=== PATIENT | male | born 1970 | race African-American/Black ===

== ENCOUNTER 2017-12-31 15:06 | Observation (INO) | payer OTHER ==
[2017-12-31 18:34] LABS: ADD MAN DIFF? NO
[2017-12-31 18:37] LABS: WHITE BLOOD COUNT 5.6 10^3/ul (4.8-10.8)
[2017-12-31 18:37] LABS: ABNORMAL IP MESSAGE 1; BASOPHILS % 0.4 % (0.0-2.0); EOSINOPHILS # 0.2 10^3/ul (0.0-0.5); EOSINOPHILS % 3.4 % (0.0-7.0); HEMATOCRIT 30.8 % (42.0-52.0); HEMOGLOBIN 10.4 g/dl (14.0-18.0); LYMPHOCYTES # 1.2 10^3/ul (0.8-2.9); LYMPHOCYTES % 21.7 % (15.0-51.0); MEAN CORPUSCULAR HEMOGLOBIN 30.3 pg (29.0-33.0); MEAN CORPUSCULAR HGB CONC 33.8 g/dl (32.0-37.0); MEAN CORPUSCULAR VOLUME 89.8 fl (82.0-101.0); MEAN PLATELET VOLUME 11.8 fl (7.4-10.4); MONOCYTE # 0.7 10^3/ul (0.3-0.9); MONOCYTES % 11.8 % (0.0-11.0); NEUTROPHIL # 3.5 10^3/ul (1.6-7.5); NEUTROPHILS % 62.3 % (39.0-77.0); PLATELET COUNT 91 10^3/UL (140-415); POSITIVE DIFF @See below; RED BLOOD COUNT 3.43 10^6/ul (4.70-6.10); RED CELL DISTRIBUTION WIDTH 14.8 % (11.5-14.5)
[2017-12-31 18:57] LABS: INR 1.08; PROTIME 14.1 Sec (11.9-14.9); PT RATIO 1.1
[2017-12-31 18:58] LABS: PARTIAL THROMBOPLASTIN TIME 38.8 Sec (25.0-35.0)
[2017-12-31 19:01] LABS: ALANINE AMINOTRANSFERASE 23 IU/L (13-69); ALBUMIN 4.2 g/dl (3.3-4.9); ALBUMIN/GLOBULIN RATIO 0.95; ALKALINE PHOSPHATASE 101 IU/L (42-121); ANION GAP 25 (8-16); ASPARTATE AMINO TRANSFERASE 14 IU/L (15-46); BLOOD UREA NITROGEN 78 mg/dl (7-20); CALCIUM 8.6 mg/dl (8.4-10.2); CARBON DIOXIDE 23 mmol/L (21-31); CHLORIDE 96 mmol/L (97-110); CREATINE KINASE 76 IU/L (23-200); GLUCOSE 171 mg/dl (70-220); POTASSIUM 4.9 mmol/L (3.5-5.1); SODIUM 139 mmol/L (135-144); TOTAL PROTEIN 8.6 g/dl (6.1-8.1)
[2017-12-31 19:11] LABS: CK INDEX 3.5; TROPONIN-I 0.028 ng/ml (0.00-0.12)
[2017-12-31 19:15] LABS: CK-MB 2.65 ng/ml (0.0-2.4)
[2017-12-31] MEDS ORDERED: ONDANSETRON 4 MG INJ IV (21:00)
[2017-12-31] MEDS ORDERED: ACETAMINOPHEN 325 MG TAB PO (21:00)
[2018-01-01] MEDS: HYDROmorphONE 0.5 MG/0.5 ML SYG IV (00:46)
[2018-01-01] MEDS: ONDANSETRON 4 MG INJ IV (00:46)
[2018-01-01] MEDS: DIPHENHYDRAMINE 50 MG INJ IV (00:47)
[2018-01-01] MEDS ORDERED: ACETAMINOPHEN 325 MG TAB PO (08:00)
[2018-01-01] MEDS ORDERED: morphine LIQ (10 MG/5 ML) CUP PO (08:00)
[2018-01-01] MEDS ORDERED: GLUCOSE GEL 15 GRAM TUBE BUCCAL (08:30)
[2018-01-01] MEDS ORDERED: GLUCAGON 1 MG INJ IM (08:30)
[2018-01-01] MEDS ORDERED: GLUCOSE GEL 15 GRAM TUBE PO ×2 (08:30)
[2018-01-01] MEDS ORDERED: DEXTROSE 50% 50 ML SYRINGE IV ×2 (08:30)
[2018-01-01] MEDS: LISINOPRIL 20 MG TAB PO ×2 (09:00→09:33)
[2018-01-01] MEDS: NIFEdipine (XL) 60 MG TAB PO (09:33)
[2018-01-01] MEDS: MINOXIDIL 2.5 MG TAB PO (09:34)
[2018-01-01] MEDS: PANTOPRAZOLE (EC) 40 MG TAB PO (09:34)
[2018-01-01] MEDS: PENTOXIFYLLINE (SR) 400 MG TAB PO ×2 (09:34→13:02)
[2018-01-01] MEDS: SERTRALINE 50 MG TAB PO (09:34)
[2018-01-01] MEDS: DIPHENHYDRAMINE 25 MG CAP PO (09:34)
[2018-01-01] MEDS: DOCUSATE SODIUM 100 MG CAP PO (09:34)
[2018-01-01] MEDS: METOPROLOL 100 MG TAB PO (11:25)
[2018-01-01] MEDS: CALCIUM ACETATE 667 MG CAP PO (11:57)
[2018-01-01] MEDS: INSULIN ASPART [NOVOLOG] 3 ML PEN SC (12:01)
[2018-01-01] MEDS ORDERED: morphine 2 MG INJ IV (13:00)
[2018-01-01] MEDS ORDERED: LISINOPRIL 20 MG TAB PO (21:00)
== END 2018-01-01 16:35 | disposition left against medical advice (07) ==
LOC: MS3 20:53 → E/R 15:06
DX: T82.868A Thrombosis due to vascular prosthetic devices, implants and grafts, initial encounter (principal); I12.0 Hypertensive chronic kidney disease with stage 5 chronic kidney disease or end stage renal disease; E11.22 Type 2 diabetes mellitus with diabetic chronic kidney disease; N18.6 End stage renal disease; Z99.2 Dependence on renal dialysis; E78.5 Hyperlipidemia, unspecified; I25.10 Atherosclerotic heart disease of native coronary artery without angina pectoris; Z95.5 Presence of coronary angioplasty implant and graft; Z89.512 Acquired absence of left leg below knee; Z89.421 Acquired absence of other right toe(s); Y83.2 Surgical operation with anastomosis, bypass or graft as the cause of abnormal reaction of the patient, or of later complication, without mention of misadventure at the time of the procedure
CPT/HCPCS: 71045; 80053; 82550; 82553; 82962; 84484; 85025; 85610; 85730; 93005; 93931; 96374; 96375; 99285-25

== ENCOUNTER 2018-02-02 23:33 | Inpatient (IN) | payer OTHER ==
[2018-02-03] MEDS ORDERED: ACETAMINOPHEN 325 MG TAB PO (01:00)
[2018-02-03] MEDS ORDERED: GLUCOSE GEL 15 GRAM TUBE BUCCAL (01:15)
[2018-02-03] MEDS ORDERED: DEXTROSE 50% 50 ML SYRINGE IV ×2 (01:15)
[2018-02-03] MEDS ORDERED: GLUCAGON 1 MG INJ IM (01:15)
[2018-02-03] MEDS ORDERED: GLUCOSE GEL 15 GRAM TUBE PO ×2 (01:15)
[2018-02-03] MEDS ORDERED: DIPHENHYDRAMINE 50 MG INJ IM (01:30)
[2018-02-03] MEDS: DIPHENHYDRAMINE 50 MG INJ IV ×3 (02:11→17:19)
[2018-02-03] MEDS: morphine 2 MG INJ IV ×3 (02:12→17:19)
[2018-02-03] MEDS: hydrALAzine 20 MG INJ IV (04:41)
[2018-02-03] MEDS: PANTOPRAZOLE (EC) 40 MG TAB PO (04:41)
[2018-02-03] MEDS: CALCIUM ACETATE 667 MG CAP PO ×3 (08:28→17:01)
[2018-02-03] MEDS: INSULIN ASPART [NOVOLOG] 3 ML PEN SC ×4 (08:36→21:00)
[2018-02-03] MEDS: DOCUSATE SODIUM 100 MG CAP PO ×2 (09:34→21:00)
[2018-02-03] MEDS: METOPROLOL 100 MG TAB PO ×2 (09:35→21:00)
[2018-02-03] MEDS: PENTOXIFYLLINE (SR) 400 MG TAB PO ×3 (09:35→21:00)
[2018-02-03] MEDS: SERTRALINE 50 MG TAB PO (09:36)
[2018-02-03] MEDS: LISINOPRIL 20 MG TAB PO (10:39)
[2018-02-03] MEDS: MINOXIDIL 2.5 MG TAB PO (10:39)
[2018-02-03] MEDS: NIFEdipine (XL) 60 MG TAB PO ×2 (10:40→21:00)
[2018-02-03 11:33] LABS: ADD MAN DIFF? NO
[2018-02-03 11:36] LABS: BASOPHILS % 0.4 % (0.0-2.0); EOSINOPHILS # 0.2 10^3/ul (0.0-0.5); EOSINOPHILS % 2.1 % (0.0-7.0); HEMATOCRIT 25.5 % (42.0-52.0); HEMOGLOBIN 8.4 g/dl (14.0-18.0); LYMPHOCYTES # 1.1 10^3/ul (0.8-2.9); LYMPHOCYTES % 11.4 % (15.0-51.0); MEAN CORPUSCULAR HEMOGLOBIN 29.2 pg (29.0-33.0); MEAN CORPUSCULAR HGB CONC 32.9 g/dl (32.0-37.0); MEAN CORPUSCULAR VOLUME 88.5 fl (82.0-101.0); MEAN PLATELET VOLUME 11.1 fl (7.4-10.4); MONOCYTE # 0.8 10^3/ul (0.3-0.9); MONOCYTES % 8.2 % (0.0-11.0); NEUTROPHIL # 7.2 10^3/ul (1.6-7.5); NEUTROPHILS % 76.4 % (39.0-77.0); PLATELET COUNT 119 10^3/UL (140-415); RED BLOOD COUNT 2.88 10^6/ul (4.70-6.10)
[2018-02-03 11:36] LABS: WHITE BLOOD COUNT 9.4 10^3/ul (4.8-10.8)
[2018-02-03 11:57] LABS: ALANINE AMINOTRANSFERASE 21 IU/L (13-69); ALBUMIN 3.5 g/dl (3.3-4.9); ALBUMIN/GLOBULIN RATIO 0.74; ALKALINE PHOSPHATASE 276 IU/L (42-121); ANION GAP 18 (8-16); ASPARTATE AMINO TRANSFERASE 23 IU/L (15-46); BLOOD UREA NITROGEN 54 mg/dl (7-20); CALCIUM 9.8 mg/dl (8.4-10.2); CARBON DIOXIDE 27 mmol/L (21-31); CHLORIDE 98 mmol/L (97-110); CREATININE 8.86 mg/dl (0.61-1.24); GLUCOSE 153 mg/dl (70-220); POTASSIUM 4.4 mmol/L (3.5-5.1); SODIUM 139 mmol/L (135-144); TOTAL PROTEIN 8.2 g/dl (6.1-8.1)
[2018-02-03 11:59] LABS: LACTIC ACID 0.6 mmol/L (0.5-2.0)
[2018-02-03] MEDS ORDERED: LORAZEPAM 2 MG INJ IV (14:30)
[2018-02-03] MEDS: PIPER-TAZO 2.25 GM (PMX) 50 ML IVPB (21:02)
[2018-02-04] MEDS: HEPARIN 1000 UNITS/ML 10 ML INJ CATHETER (02:06)
[2018-02-04] MEDS: DIPHENHYDRAMINE 50 MG INJ IV ×4 (02:16→23:13)
[2018-02-04] MEDS: morphine 2 MG INJ IV ×4 (02:17→23:13)
[2018-02-04 04:33] LABS: HEPATITIS B SURFACE ANTIGEN NEGATIVE (NEGATIVE)
[2018-02-04] MEDS: INSULIN ASPART [NOVOLOG] 3 ML PEN SC ×4 (07:55→21:00)
[2018-02-04] MEDS: MINOXIDIL 2.5 MG TAB PO (07:58)
[2018-02-04] MEDS: DOCUSATE SODIUM 100 MG CAP PO ×2 (07:58→21:21)
[2018-02-04] MEDS: LISINOPRIL 20 MG TAB PO (07:58)
[2018-02-04] MEDS: NIFEdipine (XL) 60 MG TAB PO ×2 (07:59→21:21)
[2018-02-04] MEDS: PANTOPRAZOLE (EC) 40 MG TAB PO (07:59)
[2018-02-04] MEDS: METOPROLOL 100 MG TAB PO ×2 (08:00→21:00)
[2018-02-04] MEDS: PENTOXIFYLLINE (SR) 400 MG TAB PO ×3 (08:00→21:21)
[2018-02-04] MEDS: SERTRALINE 50 MG TAB PO (08:00)
[2018-02-04] MEDS: PIPER-TAZO 2.25 GM (PMX) 50 ML IVPB ×2 (08:01→21:23)
[2018-02-04] MEDS: CALCIUM ACETATE 667 MG CAP PO ×3 (08:01→18:20)
[2018-02-04 10:52] LABS: HEPATITIS B SURFACE ANTIBODY NEGATIVE (NEGATIVE)
[2018-02-04 10:59] LABS: ADD MAN DIFF? NO
[2018-02-04 11:04] LABS: WHITE BLOOD COUNT 7.3 10^3/ul (4.8-10.8)
[2018-02-04 11:04] LABS: BASOPHILS % 0.4 % (0.0-2.0); EOSINOPHILS # 0.2 10^3/ul (0.0-0.5); EOSINOPHILS % 2.1 % (0.0-7.0); HEMATOCRIT 26.2 % (42.0-52.0); HEMOGLOBIN 8.5 g/dl (14.0-18.0); LYMPHOCYTES % 14.1 % (15.0-51.0); MEAN CORPUSCULAR HGB CONC 32.4 g/dl (32.0-37.0); MEAN CORPUSCULAR VOLUME 89.4 fl (82.0-101.0); MONOCYTE # 0.5 10^3/ul (0.3-0.9); MONOCYTES % 6.3 % (0.0-11.0); NEUTROPHIL # 5.5 10^3/ul (1.6-7.5); NEUTROPHILS % 74.9 % (39.0-77.0); PLATELET COUNT 134 10^3/UL (140-415); RED BLOOD COUNT 2.93 10^6/ul (4.70-6.10); RED CELL DISTRIBUTION WIDTH 12.7 % (11.5-14.5)
[2018-02-04 11:31] LABS: ANION GAP 21 (8-16); BLOOD UREA NITROGEN 32 mg/dl (7-20); CALCIUM 9.2 mg/dl (8.4-10.2); CARBON DIOXIDE 24 mmol/L (21-31); CHLORIDE 101 mmol/L (97-110); CREATININE 6.02 mg/dl (0.61-1.24); GLUCOSE 87 mg/dl (70-220); POTASSIUM 4.5 mmol/L (3.5-5.1); SODIUM 141 mmol/L (135-144)
[2018-02-04 11:35] LABS: HEMOGLOBIN A1C 7.5 % (0-5.9)
[2018-02-04] MEDS: hydrALAzine 20 MG INJ IV (12:12)
[2018-02-04] MEDS ORDERED: morphine LIQ (10 MG/5 ML) CUP PO (13:30)
[2018-02-04] MEDS: LORAZEPAM 2 MG INJ IV (16:57)
[2018-02-05] MEDS: INSULIN ASPART [NOVOLOG] 3 ML PEN SC ×4 (07:55→21:00)
[2018-02-05] MEDS ORDERED: MIDAZOLAM 1 MG/ML 2 ML INJ (08:32)
[2018-02-05] MEDS ORDERED: FENTAnyl 50 MCG/ML VIAL (08:32)
[2018-02-05] MEDS ORDERED: LIDOCAINE 1% (MDV) 20 ML INJ (08:37)
[2018-02-05] MEDS ORDERED: HEPARIN 1000 UNITS/NS (A-LINE) 1,000 ML (08:37)
[2018-02-05] MEDS ORDERED: IODIXANOL LOCM 100 ML BTL (08:37)
[2018-02-05] MEDS ORDERED: IODIXANOL LOCM 50 ML BTL (09:10)
[2018-02-05] MEDS: PANTOPRAZOLE (EC) 40 MG TAB PO (09:59)
[2018-02-05] MEDS: CALCIUM ACETATE 667 MG CAP PO ×3 (09:59→17:32)
[2018-02-05] MEDS: PIPER-TAZO 2.25 GM (PMX) 50 ML IVPB ×2 (09:59→21:08)
[2018-02-05] MEDS: PENTOXIFYLLINE (SR) 400 MG TAB PO ×3 (10:00→21:10)
[2018-02-05] MEDS: NIFEdipine (XL) 60 MG TAB PO ×2 (10:03→21:09)
[2018-02-05] MEDS: DOCUSATE SODIUM 100 MG CAP PO ×2 (10:03→21:09)
[2018-02-05] MEDS: LISINOPRIL 20 MG TAB PO (10:04)
[2018-02-05] MEDS: METOPROLOL 100 MG TAB PO ×2 (10:04→21:09)
[2018-02-05] MEDS: MINOXIDIL 2.5 MG TAB PO (10:05)
[2018-02-05] MEDS: SERTRALINE 50 MG TAB PO (10:12)
[2018-02-05] MEDS: morphine 2 MG INJ IV ×2 (11:02→21:16)
[2018-02-05] MEDS: DIPHENHYDRAMINE 50 MG INJ IV ×2 (11:03→21:16)
[2018-02-05] MEDS ORDERED: VANCOMYCIN IV PER PHARMACY XX (12:30)
[2018-02-05] MEDS: VANCOMYCIN 1.5 GM in SOD CHLORIDE 0.9% 250 ML IVPB (14:02)
[2018-02-05] MEDS: ONDANSETRON 4 MG INJ IV (17:41)
[2018-02-05 19:40] LABS: CREATINE KINASE < 20 IU/L (23-200)
[2018-02-05 19:45] LABS: TROPONIN-I 0.024 ng/ml (0.000-0.120)
[2018-02-05 19:46] LABS: CK-MB 1.91 ng/ml (0.0-2.4)
[2018-02-06] MEDS: INSULIN ASPART [NOVOLOG] 3 ML PEN SC ×4 (07:55→20:43)
[2018-02-06] MEDS: CALCIUM ACETATE 667 MG CAP PO ×3 (08:02→17:18)
[2018-02-06] MEDS: PANTOPRAZOLE (EC) 40 MG TAB PO (08:02)
[2018-02-06] MEDS: ONDANSETRON 4 MG INJ IV ×2 (08:07→18:03)
[2018-02-06 08:15] LABS: ADD MAN DIFF? NO
[2018-02-06 08:26] LABS: ABNORMAL IP MESSAGE 1; BASOPHILS % 0.6 % (0.0-2.0); EOSINOPHILS # 0.1 10^3/ul (0.0-0.5); HEMOGLOBIN 9.3 g/dl (14.0-18.0); LYMPHOCYTES % 14.9 % (15.0-51.0); MEAN CORPUSCULAR HEMOGLOBIN 28.6 pg (29.0-33.0); MEAN CORPUSCULAR HGB CONC 32.1 g/dl (32.0-37.0); MEAN CORPUSCULAR VOLUME 89.2 fl (82.0-101.0); MONOCYTE # 0.3 10^3/ul (0.3-0.9); MONOCYTES % 4.8 % (0.0-11.0); NEUTROPHIL # 4.9 10^3/ul (1.6-7.5); NEUTROPHILS % 71.3 % (39.0-77.0); PLATELET COUNT 156 10^3/UL (140-415); POSITIVE DIFF @See below; RED BLOOD COUNT 3.25 10^6/ul (4.70-6.10); RED CELL DISTRIBUTION WIDTH 12.7 % (11.5-14.5)
[2018-02-06 08:26] LABS: WHITE BLOOD COUNT 6.9 10^3/ul (4.8-10.8)
[2018-02-06 08:50] LABS: PHOSPHORUS 5.6 mg/dl (2.5-4.9)
[2018-02-06 08:50] LABS: MAGNESIUM 2.6 mg/dl (1.7-2.5)
[2018-02-06 08:51] LABS: CREATINE KINASE < 20 IU/L (23-200)
[2018-02-06] MEDS: METOPROLOL 100 MG TAB PO ×2 (09:00→21:00)
[2018-02-06] MEDS: LISINOPRIL 20 MG TAB PO (09:00)
[2018-02-06 09:01] LABS: TROPONIN-I 0.019 ng/ml (0.000-0.120)
[2018-02-06 09:03] LABS: CK-MB 2.09 ng/ml (0.0-2.4)
[2018-02-06 09:09] LABS: ANION GAP 32 (8-16); BLOOD UREA NITROGEN 57 mg/dl (7-20); CALCIUM 9.1 mg/dl (8.4-10.2); CARBON DIOXIDE 16 mmol/L (21-31); CHLORIDE 101 mmol/L (97-110); CREATININE 9.79 mg/dl (0.61-1.24); GLUCOSE 106 mg/dl (70-220); POTASSIUM 5.2 mmol/L (3.5-5.1); SODIUM 144 mmol/L (135-144)
[2018-02-06] MEDS: PIPER-TAZO 2.25 GM (PMX) 50 ML IVPB ×2 (09:20→20:42)
[2018-02-06] MEDS: PENTOXIFYLLINE (SR) 400 MG TAB PO ×3 (09:21→21:00)
[2018-02-06] MEDS: SERTRALINE 50 MG TAB PO (09:21)
[2018-02-06] MEDS: ASPIRIN 81 MG TAB PO (09:22)
[2018-02-06] MEDS: DOCUSATE SODIUM 100 MG CAP PO ×2 (09:23→20:43)
[2018-02-06] MEDS: MINOXIDIL 2.5 MG TAB PO (09:25)
[2018-02-06] MEDS: NIFEdipine (XL) 60 MG TAB PO ×2 (09:25→20:44)
[2018-02-06 09:28] LABS: CHOL/HDL RATIO 4.7 RATIO; HDL CHOLESTEROL 29 mg/dl (27-67); LDL CHOLESTEROL,CALCULATED 65 mg/dl; TRIGLYCERIDES 218 mg/dl (0-149)
[2018-02-06 09:28] LABS: CHOLESTEROL 138 mg/dl (100-200)
[2018-02-06] MEDS ORDERED: ALBUMIN HUMAN 25% 50 ML IV (12:30)
[2018-02-06] MEDS ORDERED: SODIUM CHLORIDE 0.9% 1L BAG IV (12:30)
[2018-02-06] MEDS ORDERED: HEPARIN 1000 UNITS/ML 10 ML INJ CATHETER (12:30)
[2018-02-06] MEDS: LUBIPROSTONE 24 MCG CAP PO ×2 (16:03→20:43)
[2018-02-06] MEDS: morphine 2 MG INJ IV (18:05)
[2018-02-06] MEDS: DIPHENHYDRAMINE 50 MG INJ IV (18:05)
[2018-02-06] MEDS: DEXTROSE 5%-0.45% NACL 1,000 ML IV (18:09)
[2018-02-07] MEDS ORDERED: PANTOPRAZOLE 40 MG INJ IV (06:00)
[2018-02-07] MEDS: PANTOPRAZOLE 40 MG INJ IV (07:35)
[2018-02-07] MEDS: CALCIUM ACETATE 667 MG CAP PO ×4 (07:35→17:21)
[2018-02-07] MEDS: INSULIN ASPART [NOVOLOG] 3 ML PEN SC ×4 (07:55→20:34)
[2018-02-07] MEDS: morphine 2 MG INJ IV ×3 (08:27→20:29)
[2018-02-07] MEDS: DIPHENHYDRAMINE 50 MG INJ IV ×3 (08:27→20:28)
[2018-02-07] MEDS: LISINOPRIL 20 MG TAB PO (08:29)
[2018-02-07] MEDS: LUBIPROSTONE 24 MCG CAP PO ×2 (08:29→20:28)
[2018-02-07] MEDS: METOPROLOL 100 MG TAB PO ×2 (08:29→20:28)
[2018-02-07] MEDS: PIPER-TAZO 2.25 GM (PMX) 50 ML IVPB ×2 (08:30→20:29)
[2018-02-07] MEDS: MINOXIDIL 2.5 MG TAB PO (08:30)
[2018-02-07] MEDS: DOCUSATE SODIUM 100 MG CAP PO ×2 (08:30→20:27)
[2018-02-07] MEDS: PENTOXIFYLLINE (SR) 400 MG TAB PO ×4 (08:30→20:28)
[2018-02-07] MEDS: SERTRALINE 50 MG TAB PO (08:30)
[2018-02-07] MEDS: NIFEdipine (XL) 60 MG TAB PO ×2 (08:30→20:28)
[2018-02-07 09:40] LABS: ADD MAN DIFF? NO
[2018-02-07 09:42] LABS: BASOPHILS % 0.5 % (0.0-2.0); EOSINOPHILS # 0.2 10^3/ul (0.0-0.5); EOSINOPHILS % 1.9 % (0.0-7.0); HEMATOCRIT 28.1 % (42.0-52.0); HEMOGLOBIN 9.4 g/dl (14.0-18.0); LYMPHOCYTES # 0.8 10^3/ul (0.8-2.9); MEAN CORPUSCULAR HEMOGLOBIN 29.1 pg (29.0-33.0); MEAN CORPUSCULAR HGB CONC 33.5 g/dl (32.0-37.0); MEAN PLATELET VOLUME 10.6 fl (7.4-10.4); MONOCYTE # 0.4 10^3/ul (0.3-0.9); MONOCYTES % 4.9 % (0.0-11.0); NEUTROPHIL # 6.1 10^3/ul (1.6-7.5); NEUTROPHILS % 77.7 % (39.0-77.0); PLATELET COUNT 149 10^3/UL (140-415); RED BLOOD COUNT 3.23 10^6/ul (4.70-6.10); RED CELL DISTRIBUTION WIDTH 12.7 % (11.5-14.5)
[2018-02-07 09:42] LABS: WHITE BLOOD COUNT 7.8 10^3/ul (4.8-10.8)
[2018-02-07 09:45] LABS: OCCULT BLOOD STOOL NEGATIVE (NEGATIVE)
[2018-02-07 10:07] LABS: ALANINE AMINOTRANSFERASE 16 IU/L (13-69); ALKALINE PHOSPHATASE 426 IU/L (42-121); ANION GAP 26 (8-16); ASPARTATE AMINO TRANSFERASE 21 IU/L (15-46); BLOOD UREA NITROGEN 32 mg/dl (7-20); CALCIUM 8.7 mg/dl (8.4-10.2); CARBON DIOXIDE 27 mmol/L (21-31); CHLORIDE 98 mmol/L (97-110); CREATININE 6.46 mg/dl (0.61-1.24); GLUCOSE 112 mg/dl (70-220); POTASSIUM 4.1 mmol/L (3.5-5.1); SODIUM 147 mmol/L (135-144)
[2018-02-07 10:10] LABS: PHOSPHORUS 3.6 mg/dl (2.5-4.9)
[2018-02-07 10:10] LABS: MAGNESIUM 2.4 mg/dl (1.7-2.5)
[2018-02-07 10:12] LABS: VANCOMYCIN,RANDOM 18.9 ug/ml
[2018-02-07 12:05] LABS: PROTIME 14.4 Sec (11.9-14.9); PT RATIO 1.1
[2018-02-07] MEDS ORDERED: PENDING SANTYL ORDER FOR WOUND CARE XX (13:30)
[2018-02-07] MEDS ORDERED: SODIUM CHLORIDE 0.9% 1L BAG IV (14:00)
[2018-02-07] MEDS: DEXTROSE 5%-0.45% NACL 1,000 ML IV (14:00)
[2018-02-07] MEDS ORDERED: ALBUMIN HUMAN 25% 50 ML IV (14:00)
[2018-02-07] MEDS: VANCOMYCIN 1 GM 250 ML IVPB (21:53)
[2018-02-08] MEDS: DIPHENHYDRAMINE 50 MG INJ IV ×4 (02:32→22:13)
[2018-02-08] MEDS: morphine 2 MG INJ IV ×2 (02:33→22:14)
[2018-02-08] MEDS: PANTOPRAZOLE 40 MG INJ IV (06:38)
[2018-02-08] MEDS ORDERED: LIDOCAINE 2% (SDV) 5 ML INJ (06:43)
[2018-02-08] MEDS ORDERED: PROPOFOL 20 ML (06:43)
[2018-02-08] MEDS ORDERED: GLYCOPYRROLATE 0.4 MG INJ (06:43)
[2018-02-08] MEDS ORDERED: ROCURONIUM 50 MG INJ (06:43)
[2018-02-08] MEDS ORDERED: MIDAZOLAM 1 MG/ML 2 ML INJ (06:44)
[2018-02-08] MEDS ORDERED: FENTAnyl 50 MCG/ML VIAL (06:44)
[2018-02-08] MEDS ORDERED: DEXAMETHASONE 4 MG/ML 1 ML INJ ×2 (06:44→06:49)
[2018-02-08] MEDS ORDERED: NEOSTIGMINE 3 MG/3 ML SYRINGE (06:44)
[2018-02-08] MEDS ORDERED: ONDANSETRON 4 MG INJ (06:45)
[2018-02-08] MEDS ORDERED: SUCCINYLCHOLINE CHLORIDE 100 MG/5 ML SYG IV (06:53)
[2018-02-08] MEDS ORDERED: CEFAZOLIN 1 GM INJ (06:54)
[2018-02-08] MEDS ORDERED: HYDROmorphONE (0.2 MG/ML) 10ML SYG IV ×3 (07:00)
[2018-02-08] MEDS ORDERED: ATROPINE 1 MG/10 ML SYRINGE IV (07:00)
[2018-02-08] MEDS ORDERED: FENTAnyl 50 MCG/ML VIAL IV (07:00)
[2018-02-08] MEDS ORDERED: EPHEDrine SULFATE 50 MG/5 ML SYG IV (07:00)
[2018-02-08] MEDS ORDERED: hydrALAzine 20 MG INJ IV (07:00)
[2018-02-08] MEDS ORDERED: MIDAZOLAM 1 MG/ML 2 ML INJ IV (07:00)
[2018-02-08] MEDS ORDERED: OXYCODONE/ACETAMINOPHEN (5/325) TAB PO ×2 (07:00)
[2018-02-08] MEDS ORDERED: ONDANSETRON 4 MG INJ IV (07:00)
[2018-02-08] MEDS ORDERED: morphine (1 MG/ML) 10ML SYRINGE IV ×3 (07:00)
[2018-02-08] MEDS ORDERED: MEPERIDINE 25 MG INJ IV (07:00)
[2018-02-08] MEDS ORDERED: LABETALOL HCL 20MG INJ IV (07:00)
[2018-02-08] MEDS: INSULIN ASPART [NOVOLOG] 3 ML PEN SC ×4 (07:55→22:14)
[2018-02-08] MEDS: CALCIUM ACETATE 667 MG CAP PO ×3 (07:55→18:37)
[2018-02-08] MEDS: LUBIPROSTONE 24 MCG CAP PO ×2 (07:57→21:00)
[2018-02-08] MEDS: NIFEdipine (XL) 60 MG TAB PO ×2 (08:02→22:13)
[2018-02-08] MEDS: METOPROLOL 100 MG TAB PO ×2 (08:02→22:13)
[2018-02-08] MEDS: DOCUSATE SODIUM 100 MG CAP PO ×2 (08:02→22:12)
[2018-02-08] MEDS: MINOXIDIL 2.5 MG TAB PO (08:02)
[2018-02-08] MEDS: SERTRALINE 50 MG TAB PO (08:03)
[2018-02-08] MEDS: LISINOPRIL 20 MG TAB PO (08:03)
[2018-02-08] MEDS: PENTOXIFYLLINE (SR) 400 MG TAB PO ×3 (08:03→22:13)
[2018-02-08] MEDS: BACITRACIN 50000 UNITS INJ IRR (08:13)
[2018-02-08] MEDS: POLYMYXIN/BACITRACIN 1L IRRIG (08:13)
[2018-02-08] MEDS: COLLAGENASE 5 GM (UD JAR) TOP (09:00)
[2018-02-08] MEDS: FENTAnyl 50 MCG/ML VIAL IV ×3 (09:11→10:51)
[2018-02-08] MEDS: PIPER-TAZO 2.25 GM (PMX) 50 ML IVPB (09:33)
[2018-02-08] MEDS: MIDAZOLAM 1 MG/ML 2 ML INJ (10:51)
[2018-02-08] MEDS: DEXTROSE 5%-0.45% NACL 1,000 ML IV (11:48)
[2018-02-08] MEDS: LIDOCAINE 1% (MDV) 10 ML INJ INJ (18:29)
[2018-02-09] MEDS: morphine 2 MG INJ IV ×4 (01:51→17:52)
[2018-02-09] MEDS: DIPHENHYDRAMINE 50 MG INJ IV ×3 (06:10→18:11)
[2018-02-09] MEDS: PANTOPRAZOLE 40 MG INJ IV (06:10)
[2018-02-09] MEDS: CALCIUM ACETATE 667 MG CAP PO ×5 (07:55→17:52)
[2018-02-09] MEDS: MINOXIDIL 2.5 MG TAB PO (09:00)
[2018-02-09 09:38] LABS: ADD MAN DIFF? NO
[2018-02-09] MEDS: NIFEdipine (XL) 60 MG TAB PO ×2 (09:40→20:21)
[2018-02-09] MEDS: METOPROLOL 100 MG TAB PO ×2 (09:40→20:21)
[2018-02-09] MEDS: DOCUSATE SODIUM 100 MG CAP PO ×2 (09:40→20:20)
[2018-02-09] MEDS: LISINOPRIL 20 MG TAB PO (09:41)
[2018-02-09] MEDS: COLLAGENASE 5 GM (UD JAR) TOP (09:41)
[2018-02-09] MEDS: PENTOXIFYLLINE (SR) 400 MG TAB PO ×3 (09:41→20:20)
[2018-02-09] MEDS: LUBIPROSTONE 24 MCG CAP PO ×2 (09:41→20:20)
[2018-02-09] MEDS: SERTRALINE 50 MG TAB PO (09:43)
[2018-02-09 09:52] LABS: WHITE BLOOD COUNT 5.7 10^3/ul (4.8-10.8)
[2018-02-09 09:52] LABS: BASOPHILS % 0.3 % (0.0-2.0); EOSINOPHILS # 0.1 10^3/ul (0.0-0.5); EOSINOPHILS % 1.2 % (0.0-7.0); HEMATOCRIT 21.7 % (42.0-52.0); HEMOGLOBIN 7.2 g/dl (14.0-18.0); LYMPHOCYTES # 1.1 10^3/ul (0.8-2.9); LYMPHOCYTES % 19.8 % (15.0-51.0); MEAN CORPUSCULAR HEMOGLOBIN 28.8 pg (29.0-33.0); MEAN CORPUSCULAR HGB CONC 33.2 g/dl (32.0-37.0); MEAN CORPUSCULAR VOLUME 86.8 fl (82.0-101.0); MEAN PLATELET VOLUME 10.4 fl (7.4-10.4); MONOCYTE # 0.5 10^3/ul (0.3-0.9); NEUTROPHIL # 3.9 10^3/ul (1.6-7.5); NEUTROPHILS % 68.1 % (39.0-77.0); PLATELET COUNT 125 10^3/UL (140-415); RED CELL DISTRIBUTION WIDTH 12.7 % (11.5-14.5)
[2018-02-09] MEDS: INSULIN ASPART [NOVOLOG] 3 ML PEN SC ×4 (09:54→20:24)
[2018-02-09 11:18] LABS: ALANINE AMINOTRANSFERASE 8 IU/L (13-69); ALBUMIN 3.5 g/dl (3.3-4.9); ALBUMIN/GLOBULIN RATIO 0.74; ALKALINE PHOSPHATASE 266 IU/L (42-121); ANION GAP 16 (8-16); ASPARTATE AMINO TRANSFERASE 16 IU/L (15-46); BLOOD UREA NITROGEN 28 mg/dl (7-20); CALCIUM 8.2 mg/dl (8.4-10.2); CARBON DIOXIDE 27 mmol/L (21-31); CHLORIDE 104 mmol/L (97-110); CREATININE 6.34 mg/dl (0.61-1.24); GLUCOSE 155 mg/dl (70-220); POTASSIUM 3.8 mmol/L (3.5-5.1); SODIUM 143 mmol/L (135-144); TOTAL PROTEIN 8.2 g/dl (6.1-8.1)
[2018-02-09 11:27] LABS: PHOSPHORUS 3.4 mg/dl (2.5-4.9)
[2018-02-09 11:27] LABS: MAGNESIUM 2.1 mg/dl (1.7-2.5)
[2018-02-09] MEDS: AMLODIPINE 10 MG TAB PO ×2 (13:00→17:52)
[2018-02-09] MEDS: LINAGLIPTIN 5 MG TABLET PO ×2 (13:00→17:52)
[2018-02-09 16:08] LABS: HEMOGLOBIN 6.9 g/dl (14.0-18.0)
[2018-02-09] MEDS ORDERED: ALBUMIN HUMAN 25% 50 ML IV (17:00)
[2018-02-09] MEDS ORDERED: SODIUM CHLORIDE 0.9% 1L BAG IV (17:00)
[2018-02-09] MEDS: SOD FERRIC GLUC COMPLX 125 MG in SOD CHLORIDE 0.9% 100 ML IVPB (17:49)
[2018-02-10] MEDS: morphine 2 MG INJ IV ×5 (02:37→22:19)
[2018-02-10] MEDS: DIPHENHYDRAMINE 50 MG INJ IV ×4 (02:37→22:20)
[2018-02-10] MEDS: PANTOPRAZOLE 40 MG INJ IV (06:43)
[2018-02-10] MEDS: INSULIN ASPART [NOVOLOG] 3 ML PEN SC ×4 (07:55→20:54)
[2018-02-10] MEDS: METOPROLOL 100 MG TAB PO ×2 (08:25→20:53)
[2018-02-10] MEDS: DOCUSATE SODIUM 100 MG CAP PO ×3 (08:25→21:00)
[2018-02-10] MEDS: LUBIPROSTONE 24 MCG CAP PO ×3 (08:25→21:00)
[2018-02-10] MEDS: LISINOPRIL 20 MG TAB PO (08:26)
[2018-02-10] MEDS: CALCIUM ACETATE 667 MG CAP PO ×3 (08:26→17:58)
[2018-02-10] MEDS: LINAGLIPTIN 5 MG TABLET PO (08:27)
[2018-02-10] MEDS: AMLODIPINE 10 MG TAB PO (08:27)
[2018-02-10] MEDS: PENTOXIFYLLINE (SR) 400 MG TAB PO ×3 (08:27→20:53)
[2018-02-10] MEDS: SERTRALINE 50 MG TAB PO (08:27)
[2018-02-10] MEDS: NIFEdipine (XL) 60 MG TAB PO ×2 (08:27→20:53)
[2018-02-10 08:59] LABS: ADD MAN DIFF? NO
[2018-02-10 09:11] LABS: ABNORMAL IP MESSAGE 1; BASOPHILS % 0.4 % (0.0-2.0); EOSINOPHILS # 0.1 10^3/ul (0.0-0.5); EOSINOPHILS % 1.9 % (0.0-7.0); HEMATOCRIT 21.5 % (42.0-52.0); LYMPHOCYTES % 17.8 % (15.0-51.0); MEAN CORPUSCULAR HEMOGLOBIN 28.4 pg (29.0-33.0); MEAN CORPUSCULAR HGB CONC 32.1 g/dl (32.0-37.0); MEAN CORPUSCULAR VOLUME 88.5 fl (82.0-101.0); MEAN PLATELET VOLUME 10.1 fl (7.4-10.4); MONOCYTE # 0.4 10^3/ul (0.3-0.9); MONOCYTES % 6.2 % (0.0-11.0); NEUTROPHILS % 70.5 % (39.0-77.0); PLATELET COUNT 123 10^3/UL (140-415); POSITIVE DIFF @See below; RED BLOOD COUNT 2.43 10^6/ul (4.70-6.10); RED CELL DISTRIBUTION WIDTH 12.7 % (11.5-14.5)
[2018-02-10 09:11] LABS: WHITE BLOOD COUNT 5.7 10^3/ul (4.8-10.8)
[2018-02-10 09:26] LABS: ANION GAP 16 (8-16); BLOOD UREA NITROGEN 33 mg/dl (7-20); CALCIUM 8.7 mg/dl (8.4-10.2); CARBON DIOXIDE 29 mmol/L (21-31); CHLORIDE 102 mmol/L (97-110); CREATININE 8.44 mg/dl (0.61-1.24); GLUCOSE 102 mg/dl (70-220); HEMOGLOBIN 6.9 g/dl (14.0-18.0); POTASSIUM 3.9 mmol/L (3.5-5.1); SODIUM 143 mmol/L (135-144)
[2018-02-10] MEDS: MINOXIDIL 2.5 MG TAB PO (09:39)
[2018-02-10] MEDS: INSULIN GLARGINE [LANtus] 3 ML PEN SC (09:43)
[2018-02-10] MEDS: hydrALAzine 20 MG INJ IV ×2 (09:47→16:51)
[2018-02-10] MEDS: COLLAGENASE 5 GM (UD JAR) TOP (09:48)
[2018-02-10] MEDS: SOD FERRIC GLUC COMPLX 125 MG in SOD CHLORIDE 0.9% 100 ML IVPB (16:41)
[2018-02-10 19:22] LABS: OCCULT BLOOD STOOL NEGATIVE (NEGATIVE)
[2018-02-11] MEDS ORDERED: NITROGLYCERIN (SL) 0.4 MG TAB (04:26)
[2018-02-11] MEDS: NITROGLYCERIN (SL) 0.4 MG TAB SL (04:27)
[2018-02-11 05:33] LABS: ADD MAN DIFF? NO
[2018-02-11] MEDS: PANTOPRAZOLE 40 MG INJ IV (05:41)
[2018-02-11 05:47] LABS: WHITE BLOOD COUNT 7.1 10^3/ul (4.8-10.8)
[2018-02-11 05:47] LABS: ABNORMAL IP MESSAGE 1; BASOPHILS % 0.3 % (0.0-2.0); EOSINOPHILS # 0.1 10^3/ul (0.0-0.5); EOSINOPHILS % 1.4 % (0.0-7.0); LYMPHOCYTES # 0.6 10^3/ul (0.8-2.9); LYMPHOCYTES % 8.8 % (15.0-51.0); MEAN CORPUSCULAR HEMOGLOBIN 28.4 pg (29.0-33.0); MEAN CORPUSCULAR HGB CONC 32.6 g/dl (32.0-37.0); MEAN CORPUSCULAR VOLUME 87.2 fl (82.0-101.0); MEAN PLATELET VOLUME 10.9 fl (7.4-10.4); MONOCYTE # 0.3 10^3/ul (0.3-0.9); MONOCYTES % 4.5 % (0.0-11.0); NEUTROPHIL # 5.9 10^3/ul (1.6-7.5); NEUTROPHILS % 83.3 % (39.0-77.0); PLATELET COUNT 132 10^3/UL (140-415); POSITIVE DIFF @See below; RED BLOOD COUNT 2.18 10^6/ul (4.70-6.10); RED CELL DISTRIBUTION WIDTH 12.5 % (11.5-14.5)
[2018-02-11] MEDS: morphine 2 MG INJ IV ×3 (06:14→23:05)
[2018-02-11] MEDS: DIPHENHYDRAMINE 50 MG INJ IV ×3 (06:14→23:04)
[2018-02-11 06:17] LABS: CREATINE KINASE 23 IU/L (23-200)
[2018-02-11 06:28] LABS: HEMOGLOBIN 6.2 g/dl (14.0-18.0)
[2018-02-11 06:30] LABS: CK INDEX 5.6; TROPONIN-I 0.038 ng/ml (0.000-0.120)
[2018-02-11 06:36] LABS: CK-MB 1.28 ng/ml (0.0-2.4)
[2018-02-11] MEDS: INSULIN ASPART [NOVOLOG] 3 ML PEN SC ×4 (07:55→21:00)
[2018-02-11] MEDS: INSULIN GLARGINE [LANtus] 3 ML PEN SC (08:00)
[2018-02-11] MEDS: COLLAGENASE 5 GM (UD JAR) TOP (09:00)
[2018-02-11] MEDS: CALCIUM ACETATE 667 MG CAP PO ×3 (09:13→17:15)
[2018-02-11] MEDS: AMLODIPINE 10 MG TAB PO (09:13)
[2018-02-11] MEDS: LUBIPROSTONE 24 MCG CAP PO ×2 (09:13→21:00)
[2018-02-11] MEDS: LISINOPRIL 20 MG TAB PO (09:14)
[2018-02-11] MEDS: PENTOXIFYLLINE (SR) 400 MG TAB PO ×3 (09:14→21:07)
[2018-02-11] MEDS: SERTRALINE 50 MG TAB PO (09:14)
[2018-02-11] MEDS: METOPROLOL 100 MG TAB PO ×2 (09:14→21:06)
[2018-02-11] MEDS: MINOXIDIL 2.5 MG TAB PO (09:14)
[2018-02-11] MEDS: NIFEdipine (XL) 60 MG TAB PO ×2 (09:15→21:07)
[2018-02-11] MEDS: LINAGLIPTIN 5 MG TABLET PO (09:15)
[2018-02-11] MEDS: DOCUSATE SODIUM 100 MG CAP PO ×2 (09:15→21:00)
[2018-02-11] MEDS: LIDOCAINE 1% (MDV) 10 ML INJ INFIL (10:30)
[2018-02-11 12:39] LABS: IMMEDIATE SPIN CROSSMATCH 1 2
[2018-02-11] MEDS: SOD FERRIC GLUC COMPLX 125 MG in SOD CHLORIDE 0.9% 100 ML IVPB (16:42)
[2018-02-11] MEDS: EPOETIN 3000 UNITS/1 ML INJ (ESRD) SC (16:48)
[2018-02-11] MEDS: VANCOMYCIN 1 GM 250 ML IVPB (23:05)
[2018-02-12] MEDS: INSULIN ASPART [NOVOLOG] 3 ML PEN SC ×4 (07:55→21:00)
[2018-02-12] MEDS: PANTOPRAZOLE (EC) 40 MG TAB PO (08:36)
[2018-02-12] MEDS: CALCIUM ACETATE 667 MG CAP PO ×3 (08:37→18:39)
[2018-02-12] MEDS: PENTOXIFYLLINE (SR) 400 MG TAB PO ×3 (09:00→21:52)
[2018-02-12] MEDS: LINAGLIPTIN 5 MG TABLET PO (09:00)
[2018-02-12] MEDS: SERTRALINE 50 MG TAB PO (09:00)
[2018-02-12] MEDS: COLLAGENASE 5 GM (UD JAR) TOP (11:17)
[2018-02-12 11:20] LABS: ADD MAN DIFF? NO
[2018-02-12 11:27] LABS: WHITE BLOOD COUNT 9.3 10^3/ul (4.8-10.8)
[2018-02-12 11:27] LABS: BASOPHILS % 0.4 % (0.0-2.0); EOSINOPHILS # 0.1 10^3/ul (0.0-0.5); EOSINOPHILS % 1.3 % (0.0-7.0); HEMATOCRIT 26.3 % (42.0-52.0); HEMOGLOBIN 8.8 g/dl (14.0-18.0); LYMPHOCYTES # 0.9 10^3/ul (0.8-2.9); LYMPHOCYTES % 9.3 % (15.0-51.0); MEAN CORPUSCULAR HEMOGLOBIN 28.7 pg (29.0-33.0); MEAN CORPUSCULAR HGB CONC 33.5 g/dl (32.0-37.0); MEAN CORPUSCULAR VOLUME 85.7 fl (82.0-101.0); MEAN PLATELET VOLUME 10.3 fl (7.4-10.4); MONOCYTE # 0.5 10^3/ul (0.3-0.9); MONOCYTES % 5.5 % (0.0-11.0); NEUTROPHIL # 7.6 10^3/ul (1.6-7.5); NEUTROPHILS % 82.5 % (39.0-77.0); PLATELET COUNT 133 10^3/UL (140-415); POSITIVE DIFF @See below; RED BLOOD COUNT 3.07 10^6/ul (4.70-6.10); RED CELL DISTRIBUTION WIDTH 14.4 % (11.5-14.5)
[2018-02-12] MEDS ORDERED: VITAMIN A & D 5 GM OINT PACKET TOP (11:29)
[2018-02-12 11:53] LABS: HEMOGLOBIN A1C 7.4 % (0-5.9)
[2018-02-12 12:26] LABS: ALANINE AMINOTRANSFERASE 11 IU/L (13-69); ALBUMIN 3.6 g/dl (3.3-4.9); ALBUMIN/GLOBULIN RATIO 0.75; ALKALINE PHOSPHATASE 232 IU/L (42-121); ANION GAP 23 (8-16); ASPARTATE AMINO TRANSFERASE 25 IU/L (15-46); BILIRUBIN,INDIRECT 0.1 mg/dl (0-1.1); BILIRUBIN,TOTAL 0.1 mg/dl (0.2-1.3); BLOOD UREA NITROGEN 34 mg/dl (7-20); CALCIUM 8.9 mg/dl (8.4-10.2); CARBON DIOXIDE 19 mmol/L (21-31); CHLORIDE 106 mmol/L (97-110); GLUCOSE 114 mg/dl (70-220); SODIUM 143 mmol/L (135-144); TOTAL PROTEIN 8.4 g/dl (6.1-8.1)
[2018-02-12 12:32] LABS: POTASSIUM 5.1 mmol/L (3.5-5.1)
[2018-02-12] MEDS: morphine 2 MG INJ IV ×2 (12:32→18:38)
[2018-02-12] MEDS: DIPHENHYDRAMINE 50 MG INJ IV ×2 (12:32→18:38)
[2018-02-12] MEDS: MINOXIDIL 2.5 MG TAB PO (12:39)
[2018-02-12] MEDS: LISINOPRIL 20 MG TAB PO (12:39)
[2018-02-12] MEDS: METOPROLOL 100 MG TAB PO ×2 (12:39→21:53)
[2018-02-12] MEDS: AMLODIPINE 10 MG TAB PO (12:39)
[2018-02-12] MEDS: NIFEdipine (XL) 60 MG TAB PO ×2 (12:39→21:53)
[2018-02-12] MEDS: LUBIPROSTONE 24 MCG CAP PO ×2 (12:40→21:52)
[2018-02-12] MEDS: DOCUSATE SODIUM 100 MG CAP PO ×2 (12:40→21:52)
[2018-02-13] MEDS: DIPHENHYDRAMINE 50 MG INJ IV ×3 (00:39→22:27)
[2018-02-13] MEDS: morphine 2 MG INJ IV ×3 (00:39→22:27)
[2018-02-13] MEDS: LINAGLIPTIN 5 MG TABLET PO (09:00)
[2018-02-13] MEDS: SERTRALINE 50 MG TAB PO (09:00)
[2018-02-13] MEDS: CALCIUM ACETATE 667 MG CAP PO ×3 (09:03→17:22)
[2018-02-13] MEDS: PANTOPRAZOLE (EC) 40 MG TAB PO (09:03)
[2018-02-13] MEDS: COLLAGENASE 5 GM (UD JAR) TOP (09:05)
[2018-02-13] MEDS: INSULIN ASPART [NOVOLOG] 3 ML PEN SC ×4 (09:05→21:00)
[2018-02-13] MEDS: LUBIPROSTONE 24 MCG CAP PO ×2 (09:06→21:37)
[2018-02-13] MEDS: PENTOXIFYLLINE (SR) 400 MG TAB PO ×3 (09:06→22:26)
[2018-02-13] MEDS: DOCUSATE SODIUM 100 MG CAP PO ×2 (09:06→21:37)
[2018-02-13] MEDS: METOPROLOL 100 MG TAB PO ×2 (09:07→21:00)
[2018-02-13] MEDS: NIFEdipine (XL) 60 MG TAB PO ×2 (09:07→21:37)
[2018-02-13] MEDS: MINOXIDIL 2.5 MG TAB PO (09:08)
[2018-02-13] MEDS: LISINOPRIL 20 MG TAB PO (09:08)
[2018-02-13] MEDS: AMLODIPINE 10 MG TAB PO (09:08)
[2018-02-13] MEDS ORDERED: ALBUMIN HUMAN 25% 50 ML IV (11:00)
[2018-02-13] MEDS ORDERED: SODIUM CHLORIDE 0.9% 1L BAG IV (11:00)
[2018-02-13 11:43] LABS: ADD MAN DIFF? NO
[2018-02-13 11:51] LABS: WHITE BLOOD COUNT 9.3 10^3/ul (4.8-10.8)
[2018-02-13 11:51] LABS: BASOPHILS % 0.2 % (0.0-2.0); EOSINOPHILS # 0.1 10^3/ul (0.0-0.5); EOSINOPHILS % 1.4 % (0.0-7.0); HEMATOCRIT 25.1 % (42.0-52.0); HEMOGLOBIN 8.3 g/dl (14.0-18.0); LYMPHOCYTES % 10.9 % (15.0-51.0); MEAN CORPUSCULAR HEMOGLOBIN 27.9 pg (29.0-33.0); MEAN CORPUSCULAR HGB CONC 33.1 g/dl (32.0-37.0); MEAN CORPUSCULAR VOLUME 84.2 fl (82.0-101.0); MEAN PLATELET VOLUME 10.3 fl (7.4-10.4); MONOCYTE # 0.7 10^3/ul (0.3-0.9); MONOCYTES % 7.4 % (0.0-11.0); NEUTROPHIL # 7.4 10^3/ul (1.6-7.5); NEUTROPHILS % 79.3 % (39.0-77.0); PLATELET COUNT 123 10^3/UL (140-415); POSITIVE DIFF @See below; RED BLOOD COUNT 2.98 10^6/ul (4.70-6.10); RED CELL DISTRIBUTION WIDTH 14.1 % (11.5-14.5)
[2018-02-13 12:04] LABS: ANION GAP 21 (8-16); BLOOD UREA NITROGEN 45 mg/dl (7-20); CALCIUM 8.8 mg/dl (8.4-10.2); CARBON DIOXIDE 23 mmol/L (21-31); CHLORIDE 103 mmol/L (97-110); CREATININE 10.06 mg/dl (0.61-1.24); GLUCOSE 93 mg/dl (70-220); POTASSIUM 4.7 mmol/L (3.5-5.1); SODIUM 142 mmol/L (135-144)
[2018-02-13 16:58] LABS: OCCULT BLOOD STOOL NEGATIVE (NEGATIVE)
[2018-02-13] MEDS: LIDOCAINE 1% (MDV) 10 ML INJ INJ (17:22)
[2018-02-14] MEDS: DIPHENHYDRAMINE 50 MG INJ IV ×3 (04:23→18:12)
[2018-02-14] MEDS: morphine 2 MG INJ IV ×3 (04:23→18:15)
[2018-02-14] MEDS: PANTOPRAZOLE (EC) 40 MG TAB PO (07:00)
[2018-02-14] MEDS: INSULIN ASPART [NOVOLOG] 3 ML PEN SC ×4 (07:55→20:34)
[2018-02-14] MEDS: CALCIUM ACETATE 667 MG CAP PO ×3 (07:55→18:13)
[2018-02-14 08:41] LABS: ADD MAN DIFF? NO
[2018-02-14] MEDS: DOCUSATE SODIUM 100 MG CAP PO ×2 (08:42→20:27)
[2018-02-14] MEDS: LUBIPROSTONE 24 MCG CAP PO ×2 (08:42→20:27)
[2018-02-14] MEDS: AMLODIPINE 10 MG TAB PO (08:43)
[2018-02-14] MEDS: MINOXIDIL 2.5 MG TAB PO (08:43)
[2018-02-14] MEDS: METOPROLOL 100 MG TAB PO ×2 (08:43→20:27)
[2018-02-14] MEDS: NIFEdipine (XL) 60 MG TAB PO ×2 (08:44→20:58)
[2018-02-14] MEDS: LINAGLIPTIN 5 MG TABLET PO (08:44)
[2018-02-14] MEDS: PENTOXIFYLLINE (SR) 400 MG TAB PO ×3 (08:45→20:26)
[2018-02-14] MEDS: LISINOPRIL 20 MG TAB PO (08:45)
[2018-02-14 08:46] LABS: WHITE BLOOD COUNT 7.5 10^3/ul (4.8-10.8)
[2018-02-14 08:46] LABS: BASOPHILS % 0.4 % (0.0-2.0); EOSINOPHILS # 0.1 10^3/ul (0.0-0.5); EOSINOPHILS % 1.5 % (0.0-7.0); HEMATOCRIT 27.3 % (42.0-52.0); HEMOGLOBIN 9.1 g/dl (14.0-18.0); LYMPHOCYTES # 1.1 10^3/ul (0.8-2.9); MEAN CORPUSCULAR HEMOGLOBIN 28.1 pg (29.0-33.0); MEAN CORPUSCULAR HGB CONC 33.3 g/dl (32.0-37.0); MEAN CORPUSCULAR VOLUME 84.3 fl (82.0-101.0); MONOCYTE # 0.5 10^3/ul (0.3-0.9); MONOCYTES % 7.2 % (0.0-11.0); NEUTROPHIL # 5.7 10^3/ul (1.6-7.5); PLATELET COUNT 146 10^3/UL (140-415); RED BLOOD COUNT 3.24 10^6/ul (4.70-6.10); RED CELL DISTRIBUTION WIDTH 13.8 % (11.5-14.5)
[2018-02-14] MEDS: SERTRALINE 50 MG TAB PO (08:46)
[2018-02-14] MEDS: COLLAGENASE 5 GM (UD JAR) TOP (08:46)
[2018-02-14 09:15] LABS: ALANINE AMINOTRANSFERASE 10 IU/L (13-69); ALBUMIN 4.1 g/dl (3.3-4.9); ALBUMIN/GLOBULIN RATIO 0.75; ALKALINE PHOSPHATASE 241 IU/L (42-121); ANION GAP 22 (8-16); ASPARTATE AMINO TRANSFERASE 16 IU/L (15-46); BLOOD UREA NITROGEN 36 mg/dl (7-20); CALCIUM 8.8 mg/dl (8.4-10.2); CARBON DIOXIDE 27 mmol/L (21-31); CHLORIDE 97 mmol/L (97-110); CREATININE 7.83 mg/dl (0.61-1.24); GLUCOSE 153 mg/dl (70-220); POTASSIUM 4.1 mmol/L (3.5-5.1); SODIUM 142 mmol/L (135-144); TOTAL PROTEIN 9.5 g/dl (6.1-8.1)
[2018-02-14 09:29] LABS: INR 1.07; PT RATIO 1.1
[2018-02-14 09:31] LABS: PARTIAL THROMBOPLASTIN TIME 55.3 Sec (25.0-35.0)
[2018-02-14] MEDS: PROPOFOL 20 ML (10:03)
[2018-02-14] MEDS ORDERED: DIPHENHYDRAMINE 50 MG INJ IV (10:30)
[2018-02-14] MEDS ORDERED: MIDAZOLAM 1 MG/ML 2 ML INJ IV (10:30)
[2018-02-14] MEDS ORDERED: METOCLOPRAMIDE 10 MG INJ IV (10:30)
[2018-02-14] MEDS ORDERED: EPHEDrine SULFATE 50 MG/5 ML SYG IV (10:30)
[2018-02-14] MEDS ORDERED: LABETALOL HCL 20MG INJ IV (10:30)
[2018-02-14] MEDS ORDERED: ONDANSETRON 4 MG INJ IV (10:30)
[2018-02-14] MEDS ORDERED: OXYCODONE/ACETAMINOPHEN (5/325) TAB PO ×2 (10:30)
[2018-02-14] MEDS ORDERED: hydrALAzine 20 MG INJ IV (10:30)
[2018-02-14] MEDS ORDERED: MEPERIDINE 25 MG INJ IV (10:30)
[2018-02-14] MEDS ORDERED: FENTAnyl 50 MCG/ML VIAL IV ×3 (10:30)
[2018-02-14] MEDS ORDERED: ALBUMIN HUMAN 25% 100 ML IV (13:00)
[2018-02-14] MEDS ORDERED: SODIUM CHLORIDE 0.9% 1L BAG IV (13:00)
[2018-02-14] MEDS: METOCLOPRAMIDE 10 MG INJ IV ×2 (13:08→18:13)
[2018-02-15] MEDS: DIPHENHYDRAMINE 50 MG INJ IV ×4 (00:08→22:09)
[2018-02-15] MEDS: morphine 2 MG INJ IV ×4 (00:08→22:09)
[2018-02-15] MEDS: METOCLOPRAMIDE 10 MG INJ IV ×5 (06:00→23:20)
[2018-02-15] MEDS: PANTOPRAZOLE (EC) 40 MG TAB PO (06:37)
[2018-02-15] MEDS: INSULIN ASPART [NOVOLOG] 3 ML PEN SC ×4 (07:55→20:44)
[2018-02-15] MEDS: CALCIUM ACETATE 667 MG CAP PO ×3 (08:16→17:13)
[2018-02-15] MEDS: LUBIPROSTONE 24 MCG CAP PO ×2 (08:16→20:39)
[2018-02-15] MEDS: LINAGLIPTIN 5 MG TABLET PO (08:16)
[2018-02-15] MEDS: COLLAGENASE 5 GM (UD JAR) TOP ×2 (08:17→09:00)
[2018-02-15] MEDS: SERTRALINE 50 MG TAB PO (08:17)
[2018-02-15] MEDS: PENTOXIFYLLINE (SR) 400 MG TAB PO ×3 (08:17→20:40)
[2018-02-15] MEDS: DOCUSATE SODIUM 100 MG CAP PO ×2 (08:21→20:39)
[2018-02-15] MEDS: LIDOCAINE 1% (MDV) 10 ML INJ INJ (08:39)
[2018-02-15] MEDS: LISINOPRIL 20 MG TAB PO (09:00)
[2018-02-15] MEDS: NIFEdipine (XL) 60 MG TAB PO ×2 (09:00→20:40)
[2018-02-15] MEDS: METOPROLOL 100 MG TAB PO ×2 (09:00→20:42)
[2018-02-15] MEDS: MINOXIDIL 2.5 MG TAB PO (09:00)
[2018-02-15] MEDS: AMLODIPINE 10 MG TAB PO (09:00)
[2018-02-15 13:24] LABS: MAGNESIUM 2.1 mg/dl (1.7-2.5)
[2018-02-15] MEDS ORDERED: VANCOMYCIN IV PER PHARMACY XX (15:00)
[2018-02-15] MEDS: hydrALAzine 20 MG INJ IV (15:51)
[2018-02-16] MEDS: METOCLOPRAMIDE 10 MG INJ IV ×4 (06:00→23:11)
[2018-02-16] MEDS: INSULIN ASPART [NOVOLOG] 3 ML PEN SC ×4 (07:55→21:00)
[2018-02-16] MEDS: morphine 2 MG INJ IV ×2 (08:49→20:46)
[2018-02-16] MEDS: DIPHENHYDRAMINE 50 MG INJ IV ×2 (08:49→20:46)
[2018-02-16] MEDS: LUBIPROSTONE 24 MCG CAP PO ×2 (09:11→20:43)
[2018-02-16] MEDS: MINOXIDIL 2.5 MG TAB PO (09:11)
[2018-02-16] MEDS: PANTOPRAZOLE (EC) 40 MG TAB PO (09:11)
[2018-02-16] MEDS: PENTOXIFYLLINE (SR) 400 MG TAB PO ×3 (09:12→20:45)
[2018-02-16] MEDS: DOCUSATE SODIUM 100 MG CAP PO ×2 (09:12→20:41)
[2018-02-16] MEDS: NIFEdipine (XL) 60 MG TAB PO ×2 (09:13→20:45)
[2018-02-16] MEDS: ASPIRIN 81 MG TAB PO (09:13)
[2018-02-16] MEDS: LINAGLIPTIN 5 MG TABLET PO (09:13)
[2018-02-16] MEDS: SERTRALINE 50 MG TAB PO (09:14)
[2018-02-16] MEDS: CALCIUM ACETATE 667 MG CAP PO ×3 (09:14→17:42)
[2018-02-16] MEDS: LISINOPRIL 20 MG TAB PO (09:15)
[2018-02-16] MEDS: METOPROLOL 100 MG TAB PO ×2 (09:15→23:05)
[2018-02-16] MEDS: AMLODIPINE 10 MG TAB PO (09:15)
[2018-02-16] MEDS: COLLAGENASE 5 GM (UD JAR) TOP (09:16)
[2018-02-16 12:01] LABS: LIPASE 70 U/L (23-300)
[2018-02-16] MEDS ORDERED: ALBUMIN HUMAN 25% 50 ML IV (20:00)
[2018-02-16] MEDS ORDERED: SODIUM CHLORIDE 0.9% 1L BAG IV (20:00)
[2018-02-16] MEDS: VANCOMYCIN 1 GM 250 ML IVPB (23:10)
[2018-02-17] MEDS: DIPHENHYDRAMINE 50 MG INJ IV ×4 (05:07→22:43)
[2018-02-17] MEDS: METOCLOPRAMIDE 10 MG INJ IV ×4 (05:07→21:28)
[2018-02-17] MEDS: morphine 2 MG INJ IV ×4 (05:08→22:43)
[2018-02-17] MEDS: PANTOPRAZOLE (EC) 40 MG TAB PO (07:00)
[2018-02-17] MEDS: SERTRALINE 50 MG TAB PO (08:34)
[2018-02-17] MEDS: CALCIUM ACETATE 667 MG CAP PO ×3 (08:34→17:22)
[2018-02-17] MEDS: ASPIRIN 81 MG TAB PO (08:34)
[2018-02-17] MEDS: LINAGLIPTIN 5 MG TABLET PO (08:35)
[2018-02-17] MEDS: DOCUSATE SODIUM 100 MG CAP PO ×2 (08:39→21:26)
[2018-02-17] MEDS: PENTOXIFYLLINE (SR) 400 MG TAB PO ×2 (08:39→11:58)
[2018-02-17] MEDS: COLLAGENASE 5 GM (UD JAR) TOP (08:39)
[2018-02-17] MEDS: LUBIPROSTONE 24 MCG CAP PO ×2 (08:39→21:26)
[2018-02-17] MEDS: INSULIN ASPART [NOVOLOG] 3 ML PEN SC ×4 (08:50→21:00)
[2018-02-17] MEDS: MINOXIDIL 2.5 MG TAB PO (08:51)
[2018-02-17] MEDS: AMLODIPINE 10 MG TAB PO (08:51)
[2018-02-17] MEDS: METOPROLOL 100 MG TAB PO ×2 (08:51→21:27)
[2018-02-17] MEDS: LISINOPRIL 20 MG TAB PO (08:52)
[2018-02-17] MEDS: NIFEdipine (XL) 60 MG TAB PO ×2 (08:52→21:27)
[2018-02-17] MEDS: LIDOCAINE 1% (MDV) 10 ML INJ INJ (17:37)
[2018-02-18] MEDS: DIPHENHYDRAMINE 50 MG INJ IV ×4 (04:19→20:32)
[2018-02-18] MEDS: morphine 2 MG INJ IV ×4 (04:20→20:30)
[2018-02-18] MEDS: METOCLOPRAMIDE 10 MG INJ IV ×4 (06:04→22:43)
[2018-02-18] MEDS: PANTOPRAZOLE (EC) 40 MG TAB PO (06:04)
[2018-02-18] MEDS: INSULIN ASPART [NOVOLOG] 3 ML PEN SC ×4 (07:55→21:00)
[2018-02-18] MEDS: COLLAGENASE 5 GM (UD JAR) TOP (08:30)
[2018-02-18] MEDS: LUBIPROSTONE 24 MCG CAP PO ×2 (08:30→20:30)
[2018-02-18] MEDS: DOCUSATE SODIUM 100 MG CAP PO ×2 (08:31→20:31)
[2018-02-18] MEDS: ASPIRIN 81 MG TAB PO (08:31)
[2018-02-18] MEDS: LINAGLIPTIN 5 MG TABLET PO (08:31)
[2018-02-18] MEDS: MINOXIDIL 2.5 MG TAB PO (08:31)
[2018-02-18] MEDS: NIFEdipine (XL) 60 MG TAB PO ×2 (08:32→20:31)
[2018-02-18] MEDS: SERTRALINE 50 MG TAB PO (08:32)
[2018-02-18] MEDS: LISINOPRIL 20 MG TAB PO (08:33)
[2018-02-18] MEDS: CALCIUM ACETATE 667 MG CAP PO ×3 (08:33→17:08)
[2018-02-18] MEDS: AMLODIPINE 10 MG TAB PO (08:33)
[2018-02-18] MEDS: METOPROLOL 100 MG TAB PO ×2 (08:34→20:31)
[2018-02-19] MEDS: morphine 2 MG INJ IV ×3 (03:31→15:07)
[2018-02-19] MEDS: DIPHENHYDRAMINE 50 MG INJ IV ×3 (03:31→15:07)
[2018-02-19] MEDS: METOCLOPRAMIDE 10 MG INJ IV ×3 (05:58→18:12)
[2018-02-19] MEDS: PANTOPRAZOLE (EC) 40 MG TAB PO (05:59)
[2018-02-19] MEDS: INSULIN ASPART [NOVOLOG] 3 ML PEN SC ×4 (07:55→21:00)
[2018-02-19] MEDS: CALCIUM ACETATE 667 MG CAP PO ×3 (09:24→18:12)
[2018-02-19] MEDS: ASPIRIN 81 MG TAB PO (09:28)
[2018-02-19] MEDS: LINAGLIPTIN 5 MG TABLET PO (09:28)
[2018-02-19] MEDS: DOCUSATE SODIUM 100 MG CAP PO ×2 (09:28→20:22)
[2018-02-19] MEDS: SERTRALINE 50 MG TAB PO (09:29)
[2018-02-19] MEDS: NIFEdipine (XL) 60 MG TAB PO ×2 (09:29→20:23)
[2018-02-19] MEDS: MINOXIDIL 2.5 MG TAB PO (09:29)
[2018-02-19] MEDS: LISINOPRIL 20 MG TAB PO (09:30)
[2018-02-19] MEDS: METOPROLOL 100 MG TAB PO ×2 (09:30→20:22)
[2018-02-19] MEDS: COLLAGENASE 5 GM (UD JAR) TOP (09:31)
[2018-02-19] MEDS: LUBIPROSTONE 24 MCG CAP PO ×2 (09:31→20:21)
[2018-02-19] MEDS: AMLODIPINE 10 MG TAB PO (09:31)
[2018-02-19 11:20] LABS: ADD MAN DIFF? NO
[2018-02-19 11:38] LABS: BASOPHIL # 0.1 10^3/ul (0.0-0.1); BASOPHILS % 1.1 % (0.0-2.0); EOSINOPHILS # 0.2 10^3/ul (0.0-0.5); EOSINOPHILS % 3.5 % (0.0-7.0); HEMATOCRIT 27.4 % (42.0-52.0); HEMOGLOBIN 8.8 g/dl (14.0-18.0); LYMPHOCYTES # 1.7 10^3/ul (0.8-2.9); LYMPHOCYTES % 30.5 % (15.0-51.0); MEAN CORPUSCULAR HEMOGLOBIN 27.9 pg (29.0-33.0); MEAN CORPUSCULAR HGB CONC 32.1 g/dl (32.0-37.0); MEAN PLATELET VOLUME 10.7 fl (7.4-10.4); MONOCYTE # 0.5 10^3/ul (0.3-0.9); MONOCYTES % 9.5 % (0.0-11.0); NEUTROPHIL # 3.1 10^3/ul (1.6-7.5); PLATELET COUNT 185 10^3/UL (140-415); RED BLOOD COUNT 3.15 10^6/ul (4.70-6.10); RED CELL DISTRIBUTION WIDTH 14.7 % (11.5-14.5)
[2018-02-19 11:38] LABS: WHITE BLOOD COUNT 5.7 10^3/ul (4.8-10.8)
[2018-02-19 12:39] LABS: ALANINE AMINOTRANSFERASE 13 IU/L (13-69); ALBUMIN 4.2 g/dl (3.3-4.9); ALBUMIN/GLOBULIN RATIO 0.77; ALKALINE PHOSPHATASE 220 IU/L (42-121); ANION GAP 22 (8-16); ASPARTATE AMINO TRANSFERASE 32 IU/L (15-46); BILIRUBIN,INDIRECT 0.1 mg/dl (0-1.1); BILIRUBIN,TOTAL 0.1 mg/dl (0.2-1.3); BLOOD UREA NITROGEN 69 mg/dl (7-20); CALCIUM 9.6 mg/dl (8.4-10.2); CARBON DIOXIDE 22 mmol/L (21-31); CHLORIDE 104 mmol/L (97-110); CREATININE 8.78 mg/dl (0.61-1.24); GLUCOSE 97 mg/dl (70-220); SODIUM 141 mmol/L (135-144); TOTAL PROTEIN 9.6 g/dl (6.1-8.1)
[2018-02-19 12:43] LABS: POTASSIUM 6.7 mmol/L (3.5-5.1)
[2018-02-19] MEDS ORDERED: LORAZEPAM 2 MG INJ (16:30)
[2018-02-19] MEDS: LORAZEPAM 2 MG INJ IV (16:33)
[2018-02-19] MEDS ORDERED: ALBUMIN HUMAN 25% 50 ML IV (17:30)
[2018-02-19] MEDS ORDERED: SODIUM CHLORIDE 0.9% 1L BAG IV (17:30)
[2018-02-19] MEDS ORDERED: HEPARIN 1000 UNITS/ML 10 ML INJ CATHETER (17:30)
[2018-02-19] MEDS: LIDOCAINE 1% (MDV) 10 ML INJ INFIL (20:05)
[2018-02-20] MEDS: METOCLOPRAMIDE 10 MG INJ IV ×5 (00:54→23:07)
[2018-02-20] MEDS: DIPHENHYDRAMINE 50 MG INJ IV ×4 (00:54→20:19)
[2018-02-20] MEDS: morphine 2 MG INJ IV ×4 (00:54→20:19)
[2018-02-20] MEDS: EPOETIN 3000 UNITS/1 ML INJ (ESRD) SC (01:15)
[2018-02-20] MEDS: INSULIN ASPART [NOVOLOG] 3 ML PEN SC ×4 (07:55→20:27)
[2018-02-20] MEDS: CALCIUM ACETATE 667 MG CAP PO ×3 (08:42→18:19)
[2018-02-20] MEDS: PANTOPRAZOLE (EC) 40 MG TAB PO (08:42)
[2018-02-20] MEDS: METOPROLOL 100 MG TAB PO ×2 (09:34→20:12)
[2018-02-20] MEDS: ASPIRIN 81 MG TAB PO (09:34)
[2018-02-20] MEDS: DOCUSATE SODIUM 100 MG CAP PO ×2 (09:34→20:27)
[2018-02-20] MEDS: SERTRALINE 50 MG TAB PO (09:35)
[2018-02-20] MEDS: LINAGLIPTIN 5 MG TABLET PO (09:35)
[2018-02-20] MEDS: LISINOPRIL 20 MG TAB PO (09:35)
[2018-02-20] MEDS: LUBIPROSTONE 24 MCG CAP PO ×2 (09:35→20:27)
[2018-02-20] MEDS: NIFEdipine (XL) 60 MG TAB PO ×2 (09:35→20:12)
[2018-02-20] MEDS: COLLAGENASE 5 GM (UD JAR) TOP (09:35)
[2018-02-20] MEDS: AMLODIPINE 10 MG TAB PO (09:35)
[2018-02-20] MEDS: MINOXIDIL 2.5 MG TAB PO (12:13)
[2018-02-20] MEDS: hydrALAzine 20 MG INJ IV (13:36)
[2018-02-20] MEDS ORDERED: ALBUMIN HUMAN 25% 50 ML IV (18:00)
[2018-02-20] MEDS ORDERED: SODIUM CHLORIDE 0.9% 1L BAG IV (18:00)
[2018-02-21] MEDS: morphine 2 MG INJ IV ×4 (02:57→23:19)
[2018-02-21] MEDS: DIPHENHYDRAMINE 50 MG INJ IV ×4 (02:57→23:19)
[2018-02-21] MEDS: METOCLOPRAMIDE 10 MG INJ IV ×3 (06:32→17:49)
[2018-02-21] MEDS: PANTOPRAZOLE (EC) 40 MG TAB PO (07:00)
[2018-02-21] MEDS ORDERED: LIDOCAINE 2% (SDV) 5 ML INJ ×2 (07:00)
[2018-02-21] MEDS: CALCIUM ACETATE 667 MG CAP PO ×3 (07:44→17:49)
[2018-02-21] MEDS: INSULIN ASPART [NOVOLOG] 3 ML PEN SC ×4 (07:55→20:51)
[2018-02-21] MEDS: LUBIPROSTONE 24 MCG CAP PO ×2 (08:24→20:51)
[2018-02-21] MEDS: LINAGLIPTIN 5 MG TABLET PO (08:25)
[2018-02-21] MEDS: DOCUSATE SODIUM 100 MG CAP PO ×2 (08:25→20:52)
[2018-02-21] MEDS: COLLAGENASE 5 GM (UD JAR) TOP (08:26)
[2018-02-21] MEDS: SERTRALINE 50 MG TAB PO (08:26)
[2018-02-21] MEDS: MINOXIDIL 2.5 MG TAB PO (09:00)
[2018-02-21] MEDS: LISINOPRIL 20 MG TAB PO (09:00)
[2018-02-21] MEDS: METOPROLOL 100 MG TAB PO ×2 (09:00→20:53)
[2018-02-21] MEDS: AMLODIPINE 10 MG TAB PO (09:00)
[2018-02-21] MEDS: NIFEdipine (XL) 60 MG TAB PO ×2 (09:00→20:52)
[2018-02-21 09:11] LABS: ADD MAN DIFF? NO
[2018-02-21 09:15] LABS: WHITE BLOOD COUNT 4.5 10^3/ul (4.8-10.8)
[2018-02-21 09:15] LABS: BASOPHILS % 0.9 % (0.0-2.0); EOSINOPHILS # 0.2 10^3/ul (0.0-0.5); EOSINOPHILS % 4.6 % (0.0-7.0); HEMATOCRIT 24.9 % (42.0-52.0); HEMOGLOBIN 8.3 g/dl (14.0-18.0); LYMPHOCYTES # 1.3 10^3/ul (0.8-2.9); LYMPHOCYTES % 29.2 % (15.0-51.0); MEAN CORPUSCULAR HEMOGLOBIN 28.6 pg (29.0-33.0); MEAN CORPUSCULAR HGB CONC 33.3 g/dl (32.0-37.0); MEAN CORPUSCULAR VOLUME 85.9 fl (82.0-101.0); MEAN PLATELET VOLUME 10.6 fl (7.4-10.4); MONOCYTE # 0.4 10^3/ul (0.3-0.9); NEUTROPHIL # 2.6 10^3/ul (1.6-7.5); NEUTROPHILS % 57.1 % (39.0-77.0); PLATELET COUNT 170 10^3/UL (140-415); RED CELL DISTRIBUTION WIDTH 14.9 % (11.5-14.5)
[2018-02-21 09:40] LABS: ALANINE AMINOTRANSFERASE 16 IU/L (13-69); ALBUMIN 3.7 g/dl (3.3-4.9); ALBUMIN/GLOBULIN RATIO 0.77; ALKALINE PHOSPHATASE 186 IU/L (42-121); ANION GAP 17 (8-16); ASPARTATE AMINO TRANSFERASE 24 IU/L (15-46); BLOOD UREA NITROGEN 74 mg/dl (7-20); CALCIUM 9.1 mg/dl (8.4-10.2); CARBON DIOXIDE 26 mmol/L (21-31); CHLORIDE 103 mmol/L (97-110); CREATININE 8.52 mg/dl (0.61-1.24); GLUCOSE 102 mg/dl (70-220); POTASSIUM 5.3 mmol/L (3.5-5.1); SODIUM 141 mmol/L (135-144); TOTAL PROTEIN 8.5 g/dl (6.1-8.1)
[2018-02-21 09:41] LABS: INR 1.15; PROTIME 14.9 Sec (11.9-14.9); PT RATIO 1.2
[2018-02-21 09:42] LABS: PARTIAL THROMBOPLASTIN TIME 43.5 Sec (25.0-35.0)
[2018-02-21] MEDS: DEXTROSE 5%-0.45% NACL 1,000 ML IV (11:45)
[2018-02-21] MEDS: INDOMETHACIN 50 MG SUPP PR (14:30)
[2018-02-21] MEDS ORDERED: IOHEXOL 300MG/ML 30 ML BTL (14:39)
[2018-02-21] MEDS ORDERED: ETOMIDATE 20 MG INJ (15:05)
[2018-02-21] MEDS ORDERED: SUCCINYLCHOLINE CHLORIDE 100 MG/5 ML SYG IV (15:06)
[2018-02-21] MEDS ORDERED: FENTAnyl 50 MCG/ML VIAL (15:06)
[2018-02-21] MEDS ORDERED: LABETALOL HCL 20MG INJ (15:15)
[2018-02-21] MEDS ORDERED: EPHEDrine SULFATE 50 MG/5 ML SYG (15:28)
[2018-02-21] MEDS ORDERED: PHENYLephrine (100 MCG/ML) 5ML SYG (15:33)
[2018-02-21] MEDS ORDERED: ONDANSETRON 4 MG INJ (15:34)
[2018-02-21] MEDS ORDERED: FAMOTIDINE 20 MG INJ (15:34)
[2018-02-22] MEDS: VANCOMYCIN 1 GM 250 ML IVPB (00:19)
[2018-02-22] MEDS: METOCLOPRAMIDE 10 MG INJ IV ×5 (00:22→23:38)
[2018-02-22] MEDS: morphine 2 MG INJ IV ×4 (03:38→23:39)
[2018-02-22] MEDS: LIDOCAINE 1% (MDV) 10 ML INJ INJ (04:02)
[2018-02-22] MEDS: DIPHENHYDRAMINE 50 MG INJ IV ×4 (05:28→23:38)
[2018-02-22] MEDS: PANTOPRAZOLE (EC) 40 MG TAB PO (07:05)
[2018-02-22] MEDS: INSULIN ASPART [NOVOLOG] 3 ML PEN SC ×4 (07:55→20:45)
[2018-02-22] MEDS: COLLAGENASE 5 GM (UD JAR) TOP (09:34)
[2018-02-22] MEDS: DEXTROSE 5%-0.45% NACL 1,000 ML IV (09:37)
[2018-02-22] MEDS: ONDANSETRON 4 MG TAB PO (09:38)
[2018-02-22] MEDS: MINOXIDIL 2.5 MG TAB PO (09:38)
[2018-02-22] MEDS: DOCUSATE SODIUM 100 MG CAP PO ×2 (09:38→20:24)
[2018-02-22] MEDS: LINAGLIPTIN 5 MG TABLET PO (09:39)
[2018-02-22] MEDS: AMLODIPINE 10 MG TAB PO (09:39)
[2018-02-22] MEDS: METOPROLOL 100 MG TAB PO ×2 (09:39→22:02)
[2018-02-22] MEDS: SERTRALINE 50 MG TAB PO (09:40)
[2018-02-22] MEDS: LUBIPROSTONE 24 MCG CAP PO (09:40)
[2018-02-22] MEDS: CALCIUM ACETATE 667 MG CAP PO ×3 (09:40→17:59)
[2018-02-22] MEDS: NIFEdipine (XL) 60 MG TAB PO ×2 (09:40→22:01)
[2018-02-22] MEDS: LISINOPRIL 20 MG TAB PO (09:40)
[2018-02-22 11:38] LABS: ALANINE AMINOTRANSFERASE 10 IU/L (13-69); ALBUMIN 4.4 g/dl (3.3-4.9); ALKALINE PHOSPHATASE 227 IU/L (42-121); ASPARTATE AMINO TRANSFERASE 34 IU/L (15-46); BILIRUBIN,INDIRECT 0.3 mg/dl (0-1.1); BILIRUBIN,TOTAL 0.3 mg/dl (0.2-1.3); TOTAL PROTEIN 10.2 g/dl (6.1-8.1)
[2018-02-22 14:16] LABS: ALANINE AMINOTRANSFERASE 11 IU/L (13-69); ALBUMIN 4.2 g/dl (3.3-4.9); ALBUMIN/GLOBULIN RATIO 0.79; ALKALINE PHOSPHATASE 226 IU/L (42-121); ANION GAP 25 (8-16); ASPARTATE AMINO TRANSFERASE 40 IU/L (15-46); BILIRUBIN,INDIRECT 0.2 mg/dl (0-1.1); BILIRUBIN,TOTAL 0.2 mg/dl (0.2-1.3); BLOOD UREA NITROGEN 72 mg/dl (7-20); CALCIUM 9.6 mg/dl (8.4-10.2); CARBON DIOXIDE 17 mmol/L (21-31); CHLORIDE 105 mmol/L (97-110); GLUCOSE 125 mg/dl (70-220); POTASSIUM 5.2 mmol/L (3.5-5.1); SODIUM 142 mmol/L (135-144); TOTAL PROTEIN 9.5 g/dl (6.1-8.1)
[2018-02-23] MEDS: METOCLOPRAMIDE 10 MG INJ IV ×4 (06:35→23:30)
[2018-02-23] MEDS: LISINOPRIL 20 MG TAB PO (08:54)
[2018-02-23] MEDS: AMLODIPINE 10 MG TAB PO (08:54)
[2018-02-23] MEDS: NIFEdipine (XL) 60 MG TAB PO ×2 (08:54→22:40)
[2018-02-23] MEDS: CALCIUM ACETATE 667 MG CAP PO ×3 (08:54→17:41)
[2018-02-23] MEDS: LINAGLIPTIN 5 MG TABLET PO (08:54)
[2018-02-23] MEDS: MINOXIDIL 2.5 MG TAB PO (08:55)
[2018-02-23] MEDS: COLLAGENASE 5 GM (UD JAR) TOP (08:55)
[2018-02-23] MEDS: METOPROLOL 100 MG TAB PO ×2 (08:55→22:40)
[2018-02-23] MEDS: DOCUSATE SODIUM 100 MG CAP PO ×2 (08:55→22:38)
[2018-02-23] MEDS: SERTRALINE 50 MG TAB PO (08:56)
[2018-02-23] MEDS: DIPHENHYDRAMINE 50 MG INJ IV ×3 (08:57→22:41)
[2018-02-23] MEDS: morphine 2 MG INJ IV ×3 (08:57→22:37)
[2018-02-23] MEDS: INSULIN ASPART [NOVOLOG] 3 ML PEN SC ×4 (09:00→22:40)
[2018-02-23] MEDS: ONDANSETRON 4 MG TAB PO (09:09)
[2018-02-23] MEDS: PANTOPRAZOLE (EC) 40 MG TAB PO (09:09)
[2018-02-23 09:50] LABS: ANION GAP 22 (8-16); BLOOD UREA NITROGEN 88 mg/dl (7-20); CALCIUM 9.8 mg/dl (8.4-10.2); CARBON DIOXIDE 24 mmol/L (21-31); CHLORIDE 102 mmol/L (97-110); CREATININE 9.72 mg/dl (0.61-1.24); GLUCOSE 86 mg/dl (70-220); SODIUM 142 mmol/L (135-144)
[2018-02-23 09:53] LABS: POTASSIUM 5.9 mmol/L (3.5-5.1)
[2018-02-23] MEDS: LIDOCAINE 1% (MDV) 10 ML INJ INJ (18:10)
[2018-02-23] MEDS: HEPARIN 1000 UNITS/ML 10 ML INJ CATHETER (21:15)
[2018-02-24] MEDS: morphine 2 MG INJ IV ×3 (03:47→13:10)
[2018-02-24] MEDS: DIPHENHYDRAMINE 50 MG INJ IV ×4 (03:47→18:17)
[2018-02-24] MEDS: METOCLOPRAMIDE 10 MG INJ IV ×3 (05:32→17:16)
[2018-02-24] MEDS: PANTOPRAZOLE (EC) 40 MG TAB PO (07:45)
[2018-02-24] MEDS: DOCUSATE SODIUM 100 MG CAP PO ×2 (08:09→21:00)
[2018-02-24] MEDS: CALCIUM ACETATE 667 MG CAP PO ×3 (08:09→17:17)
[2018-02-24] MEDS: SERTRALINE 50 MG TAB PO (08:10)
[2018-02-24] MEDS: LISINOPRIL 20 MG TAB PO (08:10)
[2018-02-24] MEDS: INSULIN ASPART [NOVOLOG] 3 ML PEN SC ×4 (08:11→21:00)
[2018-02-24] MEDS: MINOXIDIL 2.5 MG TAB PO (08:12)
[2018-02-24] MEDS: METOPROLOL 100 MG TAB PO ×2 (08:12→21:24)
[2018-02-24] MEDS: LINAGLIPTIN 5 MG TABLET PO (08:12)
[2018-02-24] MEDS: NIFEdipine (XL) 60 MG TAB PO (08:12)
[2018-02-24] MEDS: AMLODIPINE 10 MG TAB PO (08:12)
[2018-02-24] MEDS: COLLAGENASE 5 GM (UD JAR) TOP (08:13)
[2018-02-24 11:07] LABS: ANION GAP 17 (8-16); BLOOD UREA NITROGEN 54 mg/dl (7-20); CALCIUM 9.3 mg/dl (8.4-10.2); CARBON DIOXIDE 26 mmol/L (21-31); CHLORIDE 101 mmol/L (97-110); CREATININE 7.01 mg/dl (0.61-1.24); GLUCOSE 131 mg/dl (70-220); POTASSIUM 4.7 mmol/L (3.5-5.1); SODIUM 139 mmol/L (135-144)
[2018-02-24] MEDS: morphine LIQ (10 MG/5 ML) CUP PO (17:17)
[2018-02-24] MEDS: HYDROCODONE/APAP (7.5/325) TAB PO (18:17)
[2018-02-24] MEDS: NIFEdipine (XL) 30 MG TAB PO (21:23)
[2018-02-25] MEDS: morphine LIQ (10 MG/5 ML) CUP PO ×4 (00:04→23:01)
[2018-02-25] MEDS: DIPHENHYDRAMINE 50 MG INJ IV ×4 (00:09→23:01)
[2018-02-25] MEDS: METOCLOPRAMIDE 10 MG INJ IV ×5 (00:11→23:01)
[2018-02-25] MEDS: PANTOPRAZOLE (EC) 40 MG TAB PO (06:00)
[2018-02-25] MEDS: INSULIN ASPART [NOVOLOG] 3 ML PEN SC ×4 (08:15→20:20)
[2018-02-25] MEDS: METOPROLOL 100 MG TAB PO ×2 (08:19→20:02)
[2018-02-25] MEDS: CALCIUM ACETATE 667 MG CAP PO ×3 (08:19→18:13)
[2018-02-25] MEDS: MINOXIDIL 2.5 MG TAB PO (08:20)
[2018-02-25] MEDS: NIFEdipine (XL) 30 MG TAB PO ×2 (08:20→13:25)
[2018-02-25] MEDS: DOCUSATE SODIUM 100 MG CAP PO ×2 (08:21→20:20)
[2018-02-25] MEDS: AMLODIPINE 10 MG TAB PO (08:21)
[2018-02-25] MEDS: LISINOPRIL 20 MG TAB PO (08:21)
[2018-02-25] MEDS: LINAGLIPTIN 5 MG TABLET PO (08:21)
[2018-02-25] MEDS: SERTRALINE 50 MG TAB PO (08:22)
[2018-02-25] MEDS: COLLAGENASE 5 GM (UD JAR) TOP (08:27)
[2018-02-25] MEDS: hydrALAzine 20 MG INJ IV (09:21)
[2018-02-25] MEDS: NIFEdipine (XL) 60 MG TAB PO (21:17)
[2018-02-26] MEDS: PANTOPRAZOLE (EC) 40 MG TAB PO (06:03)
[2018-02-26] MEDS: METOCLOPRAMIDE 10 MG INJ IV ×4 (06:04→23:42)
[2018-02-26] MEDS: DIPHENHYDRAMINE 50 MG INJ IV ×3 (06:17→18:23)
[2018-02-26] MEDS: morphine LIQ (10 MG/5 ML) CUP PO ×3 (06:18→18:24)
[2018-02-26] MEDS: INSULIN ASPART [NOVOLOG] 3 ML PEN SC ×4 (08:11→21:00)
[2018-02-26] MEDS: METOPROLOL 100 MG TAB PO ×2 (08:13→21:09)
[2018-02-26] MEDS: AMLODIPINE 10 MG TAB PO (08:13)
[2018-02-26] MEDS: MINOXIDIL 2.5 MG TAB PO (08:13)
[2018-02-26] MEDS: LISINOPRIL 20 MG TAB PO (08:14)
[2018-02-26] MEDS: NIFEdipine (XL) 60 MG TAB PO ×2 (08:14→21:09)
[2018-02-26] MEDS: LINAGLIPTIN 5 MG TABLET PO (08:52)
[2018-02-26] MEDS: CALCIUM ACETATE 667 MG CAP PO ×3 (08:52→17:29)
[2018-02-26] MEDS: DOCUSATE SODIUM 100 MG CAP PO ×2 (08:53→21:00)
[2018-02-26] MEDS: COLLAGENASE 5 GM (UD JAR) TOP (08:53)
[2018-02-26] MEDS: SERTRALINE 50 MG TAB PO (09:00)
[2018-02-26 15:06] LABS: ANION GAP 20 (8-16); BLOOD UREA NITROGEN 107 mg/dl (7-20); CALCIUM 9.1 mg/dl (8.4-10.2); CARBON DIOXIDE 20 mmol/L (21-31); CHLORIDE 101 mmol/L (97-110); CREATININE 10.15 mg/dl (0.61-1.24); GLUCOSE 102 mg/dl (70-220); POTASSIUM 5.3 mmol/L (3.5-5.1); SODIUM 136 mmol/L (135-144)
[2018-02-26] MEDS: ONDANSETRON 4 MG TAB PO (18:28)
[2018-02-26] MEDS: VANCOMYCIN 1 GM 250 ML IVPB (23:41)
[2018-02-27] MEDS: morphine LIQ (10 MG/5 ML) CUP PO ×2 (00:20→09:36)
[2018-02-27] MEDS: DIPHENHYDRAMINE 50 MG INJ IV ×2 (00:21→09:24)
[2018-02-27] MEDS ORDERED: DIPHENHYDRAMINE 50 MG INJ IV (01:00)
[2018-02-27] MEDS: PANTOPRAZOLE (EC) 40 MG TAB PO (06:46)
[2018-02-27] MEDS: METOCLOPRAMIDE 10 MG INJ IV ×2 (06:47→12:30)
[2018-02-27] MEDS: INSULIN ASPART [NOVOLOG] 3 ML PEN SC ×2 (08:08→12:25)
[2018-02-27] MEDS: DOCUSATE SODIUM 100 MG CAP PO (08:24)
[2018-02-27] MEDS: AMLODIPINE 10 MG TAB PO (08:26)
[2018-02-27] MEDS: LISINOPRIL 20 MG TAB PO (08:26)
[2018-02-27] MEDS: LINAGLIPTIN 5 MG TABLET PO (08:27)
[2018-02-27] MEDS: NIFEdipine (XL) 60 MG TAB PO (08:27)
[2018-02-27] MEDS: METOPROLOL 100 MG TAB PO (08:27)
[2018-02-27] MEDS: MINOXIDIL 2.5 MG TAB PO (08:27)
[2018-02-27] MEDS: SERTRALINE 50 MG TAB PO (08:29)
[2018-02-27] MEDS: COLLAGENASE 5 GM (UD JAR) TOP (08:30)
[2018-02-27] MEDS: CALCIUM ACETATE 667 MG CAP PO ×2 (08:30→12:31)
[2018-02-27 09:54] LABS: ANION GAP 14 (8-16); BLOOD UREA NITROGEN 53 mg/dl (7-20); CARBON DIOXIDE 30 mmol/L (21-31); CHLORIDE 100 mmol/L (97-110); CREATININE 5.83 mg/dl (0.61-1.24); GLUCOSE 118 mg/dl (70-220); POTASSIUM 4.7 mmol/L (3.5-5.1); SODIUM 139 mmol/L (135-144)
== END 2018-02-27 15:00 | disposition home health service (06) | DRG 252 ==
LOC: TEL 23:33 → MS2 02-23 16:40
PROVIDERS: Internal Medicine Nephrology
PROC: 057C3ZZ Dilation of Left Basilic Vein, Percutaneous Approach (ICD-10-PCS; principal; 2018-02-05 08:00)
PROC: 05763ZZ Dilation of Left Subclavian Vein, Percutaneous Approach (ICD-10-PCS; 2018-02-05 08:00)
PROC: B51WYZZ Fluoroscopy of Dialysis Shunt/Fistula using Other Contrast (ICD-10-PCS; 2018-02-05 08:00)
PROC: 0QBH0ZZ Excision of Left Tibia, Open Approach (ICD-10-PCS; 2018-02-05 08:07)
PROC: 0F798DZ Dilation of Common Bile Duct with Intraluminal Device, Via Natural or Artificial Opening Endoscopic (ICD-10-PCS; 2018-02-05 08:07)
PROC: 0F7C8DZ Dilation of Ampulla of Vater with Intraluminal Device, Via Natural or Artificial Opening Endoscopic (ICD-10-PCS; 2018-02-05 08:07)
PROC: 0F7D8DZ Dilation of Pancreatic Duct with Intraluminal Device, Via Natural or Artificial Opening Endoscopic (ICD-10-PCS; 2018-02-05 08:07)
PROC: 0FC98ZZ Extirpation of Matter from Common Bile Duct, Via Natural or Artificial Opening Endoscopic (ICD-10-PCS; 2018-02-05 08:07)
PROC: 0DB68ZX Excision of Stomach, Via Natural or Artificial Opening Endoscopic, Diagnostic (ICD-10-PCS; 2018-02-05 08:07)
PROC: 30233N1 Transfusion of Nonautologous Red Blood Cells into Peripheral Vein, Percutaneous Approach (ICD-10-PCS; 2018-02-05 08:07)
PROC: 5A1D70Z Performance of Urinary Filtration, Intermittent, Less than 6 Hours Per Day (ICD-10-PCS; 2018-02-05 08:07)
DX: T82.868A Thrombosis due to vascular prosthetic devices, implants and grafts, initial encounter (principal); N18.6 End stage renal disease; I13.2 Hypertensive heart and chronic kidney disease with heart failure and with stage 5 chronic kidney disease, or end stage renal disease; I50.30 Unspecified diastolic (congestive) heart failure; T87.44 Infection of amputation stump, left lower extremity; M86.662 Other chronic osteomyelitis, left tibia and fibula; L02.416 Cutaneous abscess of left lower limb; L97.822 Non-pressure chronic ulcer of other part of left lower leg with fat layer exposed; K22.10 Ulcer of esophagus without bleeding; K80.51 Calculus of bile duct without cholangitis or cholecystitis with obstruction; K92.2 Gastrointestinal hemorrhage, unspecified; T82.858A Stenosis of other vascular prosthetic devices, implants and grafts, initial encounter; E11.22 Type 2 diabetes mellitus with diabetic chronic kidney disease; I25.10 Atherosclerotic heart disease of native coronary artery without angina pectoris; R74.8 Abnormal levels of other serum enzymes; E11.51 Type 2 diabetes mellitus with diabetic peripheral angiopathy without gangrene; D63.8 Anemia in other chronic diseases classified elsewhere; B95.62 Methicillin resistant Staphylococcus aureus infection as the cause of diseases classified elsewhere; E11.621 Type 2 diabetes mellitus with foot ulcer; L97.513 Non-pressure chronic ulcer of other part of right foot with necrosis of muscle; E11.622 Type 2 diabetes mellitus with other skin ulcer; E11.42 Type 2 diabetes mellitus with diabetic polyneuropathy; E11.43 Type 2 diabetes mellitus with diabetic autonomic (poly)neuropathy; K31.84 Gastroparesis; E11.69 Type 2 diabetes mellitus with other specified complication; K83.8 Other specified diseases of biliary tract; I25.2 Old myocardial infarction; E78.5 Hyperlipidemia, unspecified; D69.6 Thrombocytopenia, unspecified; K21.9 Gastro-esophageal reflux disease without esophagitis; Z86.718 Personal history of other venous thrombosis and embolism; Z87.891 Personal history of nicotine dependence; Z99.2 Dependence on renal dialysis; Z95.810 Presence of automatic (implantable) cardiac defibrillator; Z95.5 Presence of coronary angioplasty implant and graft; Z90.49 Acquired absence of other specified parts of digestive tract; Z89.421 Acquired absence of other right toe(s); Y83.5 Amputation of limb(s) as the cause of abnormal reaction of the patient, or of later complication, without mention of misadventure at the time of the procedure; Y83.2 Surgical operation with anastomosis, bypass or graft as the cause of abnormal reaction of the patient, or of later complication, without mention of misadventure at the time of the procedure
CPT/HCPCS: 36430; 36902; 36907; 73718; 74018; 74181; 74330; 76705; 76937; 80048; 80053; 80061; 80076; 80202; 82270; 82533; 82550; 82553; 82962; 83036; 83605; 83690; 83735; 84100; 84132; 84484; 85014; 85018; 85025; 85610; 85730; 86706; 86850; 86900; 86901; 86920; 87070; 87075; 87340; 88304; 88305; 88311; 90935; 93005; 93306

== ENCOUNTER 2018-03-09 18:44 | Inpatient (IN) | payer OTHER ==
[2018-03-09 21:33] LABS: WHITE BLOOD COUNT 6.3 10^3/ul (4.8-10.8)
[2018-03-09 21:33] LABS: ABNORMAL IP MESSAGE 1; HEMATOCRIT 18.1 % (42.0-52.0); MEAN CORPUSCULAR HEMOGLOBIN 28.4 pg (29.0-33.0); MEAN CORPUSCULAR HGB CONC 31.5 g/dl (32.0-37.0); MEAN PLATELET VOLUME 11.2 fl (7.4-10.4); PLATELET COUNT 158 10^3/UL (140-415); POSITIVE DIFF @See below; RED BLOOD COUNT 2.01 10^6/ul (4.70-6.10); RED CELL DISTRIBUTION WIDTH 15.8 % (11.5-14.5)
[2018-03-09 21:40] LABS: ADD MAN DIFF? YES; HEMOGLOBIN 5.7 g/dl (14.0-18.0); PATH REVIEW? YES
[2018-03-09 21:49] LABS: INR 1.11; PROTIME 14.5 Sec (11.9-14.9); PT RATIO 1.1
[2018-03-09 21:50] LABS: PARTIAL THROMBOPLASTIN TIME 46.9 Sec (25.0-35.0)
[2018-03-09 21:52] LABS: ALANINE AMINOTRANSFERASE 50 IU/L (13-69); ALBUMIN/GLOBULIN RATIO 0.75; ALKALINE PHOSPHATASE 342 IU/L (42-121); ANION GAP 18 (8-16); ASPARTATE AMINO TRANSFERASE 67 IU/L (15-46); BILIRUBIN,INDIRECT 0.1 mg/dl (0-1.1); BILIRUBIN,TOTAL 0.1 mg/dl (0.2-1.3); BLOOD UREA NITROGEN 52 mg/dl (7-20); CALCIUM 8.6 mg/dl (8.4-10.2); CARBON DIOXIDE 27 mmol/L (21-31); CHLORIDE 95 mmol/L (97-110); CREATININE 6.64 mg/dl (0.61-1.24); GLUCOSE 257 mg/dl (70-220); POTASSIUM 3.7 mmol/L (3.5-5.1); SODIUM 136 mmol/L (135-144); TOTAL PROTEIN 9.3 g/dl (6.1-8.1)
[2018-03-09] MEDS: DIPHENHYDRAMINE 50 MG INJ IV (23:06)
[2018-03-09] MEDS: HYDROmorphONE 1 MG/ML SYG IV (23:06)
[2018-03-09] MEDS: ONDANSETRON 4 MG INJ IV (23:06)
[2018-03-09 23:59] LABS: ANISOCYTOSIS 2+ (0-0); EOSINOPHILS # 0.3 10^3/ul (0.0-0.5); EOSINOPHILS % (M) 5 % (0.0-7.0); HYPOCHROMASIA 2+ (0-0); LYMPHOCYTES # 0.6 10^3/ul (0.8-2.9); LYMPHOCYTES #M 0.6 10^3/ul (0.8-2.9); LYMPHOCYTES % (M) 10 % (15-51); MICROCYTOSIS 1+ (0-0); MONOCYTE # 0.3 10^3/ul (0.3-0.9); MONOCYTE #M 0.3 10^3/ul (0.3-0.9); MONOCYTES % (M) 5 % (0-11); SEGMENTED NEUTROPHILS (M) % 80 % (39-77)
[2018-03-10] MEDS ORDERED: METOCLOPRAMIDE 5 MG TAB PO (02:00)
[2018-03-10] MEDS ORDERED: HYDROCODONE/APAP (7.5/325) TAB PO (02:00)
[2018-03-10] MEDS ORDERED: ONDANSETRON 4 MG INJ IV ×2 (02:00)
[2018-03-10] MEDS: ACCUCHECK AT 2AM (Patients on SS coverage) XX (02:00)
[2018-03-10] MEDS ORDERED: ACETAMINOPHEN 325 MG TAB PO ×2 (02:00)
[2018-03-10 02:22] LABS: IMMEDIATE SPIN CROSSMATCH 1 2
[2018-03-10] MEDS ORDERED: GLUCOSE GEL 15 GRAM TUBE BUCCAL (02:30)
[2018-03-10] MEDS ORDERED: DEXTROSE 50% 50 ML SYRINGE IV ×2 (02:30)
[2018-03-10] MEDS ORDERED: GLUCOSE GEL 15 GRAM TUBE PO ×2 (02:30)
[2018-03-10] MEDS ORDERED: GLUCAGON 1 MG INJ IM (02:30)
[2018-03-10] MEDS: morphine 2 MG INJ IV ×5 (02:35→22:26)
[2018-03-10] MEDS ORDERED: PANTOPRAZOLE (EC) 40 MG TAB PO (06:00)
[2018-03-10] MEDS: DIPHENHYDRAMINE 50 MG INJ IV ×3 (08:08→21:22)
[2018-03-10] MEDS: CALCIUM ACETATE 667 MG CAP PO ×3 (08:11→18:20)
[2018-03-10 08:59] LABS: ADD MAN DIFF? NO
[2018-03-10] MEDS: INSULIN ASPART [NOVOLOG] 3 ML PEN SC ×4 (09:02→21:00)
[2018-03-10] MEDS: PENTOXIFYLLINE (SR) 400 MG TAB PO ×3 (09:04→21:25)
[2018-03-10 09:05] LABS: WHITE BLOOD COUNT 6.8 10^3/ul (4.8-10.8)
[2018-03-10 09:05] LABS: BASOPHILS % 0.4 % (0.0-2.0); EOSINOPHILS # 0.5 10^3/ul (0.0-0.5); EOSINOPHILS % 7.8 % (0.0-7.0); HEMATOCRIT 22.2 % (42.0-52.0); HEMOGLOBIN 7.4 g/dl (14.0-18.0); LYMPHOCYTES # 0.9 10^3/ul (0.8-2.9); LYMPHOCYTES % 13.4 % (15.0-51.0); MEAN CORPUSCULAR HEMOGLOBIN 29.5 pg (29.0-33.0); MEAN CORPUSCULAR HGB CONC 33.3 g/dl (32.0-37.0); MEAN CORPUSCULAR VOLUME 88.4 fl (82.0-101.0); MEAN PLATELET VOLUME 11.2 fl (7.4-10.4); MONOCYTE # 0.4 10^3/ul (0.3-0.9); MONOCYTES % 6.2 % (0.0-11.0); NEUTROPHIL # 4.9 10^3/ul (1.6-7.5); NEUTROPHILS % 71.9 % (39.0-77.0); PLATELET COUNT 143 10^3/UL (140-415); RED BLOOD COUNT 2.51 10^6/ul (4.70-6.10); RED CELL DISTRIBUTION WIDTH 14.9 % (11.5-14.5)
[2018-03-10] MEDS: SERTRALINE 50 MG TAB PO (09:05)
[2018-03-10] MEDS: PANTOPRAZOLE 40 MG INJ IV (09:05)
[2018-03-10] MEDS: NIFEdipine (XL) 30 MG TAB PO ×2 (09:17→21:25)
[2018-03-10] MEDS: METOPROLOL 100 MG TAB PO ×2 (09:18→21:26)
[2018-03-10 09:26] LABS: ANION GAP 16 (8-16); BLOOD UREA NITROGEN 56 mg/dl (7-20); CALCIUM 8.4 mg/dl (8.4-10.2); CARBON DIOXIDE 26 mmol/L (21-31); CHLORIDE 100 mmol/L (97-110); CREATININE 6.97 mg/dl (0.61-1.24); GLUCOSE 187 mg/dl (70-220); POTASSIUM 4.4 mmol/L (3.5-5.1); SODIUM 138 mmol/L (135-144)
[2018-03-10] MEDS: MINOXIDIL 2.5 MG TAB PO (13:29)
[2018-03-10] MEDS: LISINOPRIL 20 MG TAB PO (13:29)
[2018-03-10] MEDS: DOCUSATE SODIUM 100 MG CAP PO (14:12)
[2018-03-10] MEDS: LACTULOSE 30ML CUP PO (14:13)
[2018-03-10] MEDS ORDERED: SODIUM CHLORIDE 0.9% 1L BAG IV (14:30)
[2018-03-10] MEDS ORDERED: ALBUMIN HUMAN 25% 100 ML IV (14:30)
[2018-03-10] MEDS: LUBIPROSTONE 8 MCG CAPSULE PO ×2 (15:05→23:50)
[2018-03-10 16:12] LABS: HEPATITIS B SURFACE ANTIGEN NEGATIVE (NEGATIVE)
[2018-03-10] MEDS: BISACODYL 30 ML ENEMA PR (19:15)
[2018-03-10] MEDS: HEPARIN 1000 UNITS/ML 10 ML INJ CATHETER (20:27)
[2018-03-10 21:06] LABS: OCCULT BLOOD STOOL NEGATIVE (NEGATIVE)
[2018-03-10] MEDS: EPOETIN 3000 UNITS/1 ML INJ (ESRD) SC (21:22)
[2018-03-11] MEDS: ACCUCHECK AT 2AM (Patients on SS coverage) XX (02:00)
[2018-03-11] MEDS: morphine 2 MG INJ IV ×2 (05:41→23:02)
[2018-03-11] MEDS: PANTOPRAZOLE 40 MG INJ IV (05:41)
[2018-03-11] MEDS: DIPHENHYDRAMINE 50 MG INJ IV ×3 (05:41→23:02)
[2018-03-11 08:23] LABS: ADD MAN DIFF? NO
[2018-03-11 08:26] LABS: WHITE BLOOD COUNT 6.5 10^3/ul (4.8-10.8)
[2018-03-11 08:26] LABS: BASOPHILS % 0.5 % (0.0-2.0); EOSINOPHILS # 0.5 10^3/ul (0.0-0.5); EOSINOPHILS % 7.1 % (0.0-7.0); HEMATOCRIT 22.9 % (42.0-52.0); HEMOGLOBIN 7.5 g/dl (14.0-18.0); LYMPHOCYTES # 0.7 10^3/ul (0.8-2.9); LYMPHOCYTES % 10.1 % (15.0-51.0); MEAN CORPUSCULAR HEMOGLOBIN 28.7 pg (29.0-33.0); MEAN CORPUSCULAR HGB CONC 32.8 g/dl (32.0-37.0); MEAN CORPUSCULAR VOLUME 87.7 fl (82.0-101.0); MEAN PLATELET VOLUME 10.6 fl (7.4-10.4); MONOCYTE # 0.5 10^3/ul (0.3-0.9); MONOCYTES % 7.4 % (0.0-11.0); NEUTROPHIL # 4.9 10^3/ul (1.6-7.5); NEUTROPHILS % 74.4 % (39.0-77.0); PLATELET COUNT 176 10^3/UL (140-415); RED BLOOD COUNT 2.61 10^6/ul (4.70-6.10)
[2018-03-11 08:50] LABS: ANION GAP 17 (8-16); BLOOD UREA NITROGEN 35 mg/dl (7-20); CALCIUM 8.6 mg/dl (8.4-10.2); CARBON DIOXIDE 26 mmol/L (21-31); CHLORIDE 101 mmol/L (97-110); CREATININE 5.44 mg/dl (0.61-1.24); GLUCOSE 164 mg/dl (70-220); POTASSIUM 4.2 mmol/L (3.5-5.1); SODIUM 140 mmol/L (135-144)
[2018-03-11] MEDS: CALCIUM ACETATE 667 MG CAP PO ×3 (08:55→17:58)
[2018-03-11] MEDS: LUBIPROSTONE 8 MCG CAPSULE PO ×2 (08:56→21:00)
[2018-03-11] MEDS: SERTRALINE 50 MG TAB PO (08:56)
[2018-03-11] MEDS: LISINOPRIL 20 MG TAB PO (08:57)
[2018-03-11] MEDS: PENTOXIFYLLINE (SR) 400 MG TAB PO ×3 (08:57→21:47)
[2018-03-11] MEDS: METOPROLOL 100 MG TAB PO ×2 (08:58→21:39)
[2018-03-11] MEDS: MINOXIDIL 2.5 MG TAB PO (09:02)
[2018-03-11] MEDS: NIFEdipine (XL) 30 MG TAB PO ×2 (09:03→21:40)
[2018-03-11] MEDS: INSULIN ASPART [NOVOLOG] 3 ML PEN SC ×4 (09:07→21:00)
[2018-03-11] MEDS: INSULIN GLARGINE [LANtus] 3 ML PEN SC (20:00)
[2018-03-11] MEDS ORDERED: GABAPENTIN 300 MG CAP PO (21:00)
[2018-03-11] MEDS: GABAPENTIN 300 MG CAP PO (21:40)
[2018-03-12] MEDS: ACCUCHECK AT 2AM (Patients on SS coverage) XX (02:00)
[2018-03-12] MEDS: PANTOPRAZOLE (EC) 40 MG TAB PO (06:00)
[2018-03-12] MEDS: morphine 2 MG INJ IV (07:09)
[2018-03-12] MEDS: DIPHENHYDRAMINE 50 MG INJ IV ×3 (07:16→21:34)
[2018-03-12] MEDS: SERTRALINE 50 MG TAB PO (09:00)
[2018-03-12] MEDS: CALCIUM ACETATE 667 MG CAP PO ×3 (09:40→17:46)
[2018-03-12] MEDS: METOPROLOL 100 MG TAB PO ×2 (09:41→20:21)
[2018-03-12] MEDS: LUBIPROSTONE 8 MCG CAPSULE PO ×2 (09:44→20:22)
[2018-03-12] MEDS: LISINOPRIL 20 MG TAB PO (09:45)
[2018-03-12] MEDS: INSULIN ASPART [NOVOLOG] 3 ML PEN SC ×4 (09:48→20:19)
[2018-03-12] MEDS: INSULIN GLARGINE [LANtus] 3 ML PEN SC ×2 (09:50→20:00)
[2018-03-12] MEDS: MINOXIDIL 2.5 MG TAB PO (09:51)
[2018-03-12] MEDS: PENTOXIFYLLINE (SR) 400 MG TAB PO ×3 (09:54→20:20)
[2018-03-12] MEDS: NIFEdipine (XL) 30 MG TAB PO ×2 (09:55→20:25)
[2018-03-12] MEDS: SOD CHLORIDE 0.9% 100 ML (10:27)
[2018-03-12] MEDS: IODIXANOL LOCM 100 ML BTL (10:28)
[2018-03-12 10:51] LABS: ADD MAN DIFF? NO
[2018-03-12 10:54] LABS: BASOPHILS % 0.6 % (0.0-2.0); EOSINOPHILS # 0.6 10^3/ul (0.0-0.5); EOSINOPHILS % 7.6 % (0.0-7.0); HEMOGLOBIN 7.5 g/dl (14.0-18.0); LYMPHOCYTES # 0.8 10^3/ul (0.8-2.9); LYMPHOCYTES % 11.4 % (15.0-51.0); MEAN CORPUSCULAR HEMOGLOBIN 29.1 pg (29.0-33.0); MEAN CORPUSCULAR HGB CONC 32.6 g/dl (32.0-37.0); MEAN CORPUSCULAR VOLUME 89.1 fl (82.0-101.0); MEAN PLATELET VOLUME 11.1 fl (7.4-10.4); MONOCYTE # 0.6 10^3/ul (0.3-0.9); MONOCYTES % 8.1 % (0.0-11.0); NEUTROPHIL # 5.2 10^3/ul (1.6-7.5); NEUTROPHILS % 71.9 % (39.0-77.0); PLATELET COUNT 182 10^3/UL (140-415); RED BLOOD COUNT 2.58 10^6/ul (4.70-6.10); RED CELL DISTRIBUTION WIDTH 14.6 % (11.5-14.5)
[2018-03-12 10:54] LABS: WHITE BLOOD COUNT 7.2 10^3/ul (4.8-10.8)
[2018-03-12 11:24] LABS: ANION GAP 21 (8-16); BLOOD UREA NITROGEN 54 mg/dl (7-20); CARBON DIOXIDE 28 mmol/L (21-31); CHLORIDE 96 mmol/L (97-110); CREATININE 7.25 mg/dl (0.61-1.24); GLUCOSE 180 mg/dl (70-220); POTASSIUM 4.7 mmol/L (3.5-5.1); SODIUM 140 mmol/L (135-144)
[2018-03-12 13:28] LABS: RETICULOCYTE COUNT # 0.038 X10^6 (0.020-0.110); RETICULOCYTE COUNT % 1.4 % (0.5-1.5)
[2018-03-12 13:28] LABS: RETICULOCYTE RBC 2.67
[2018-03-12] MEDS ORDERED: morphine 2 MG INJ IV (13:30)
[2018-03-12] MEDS: morphine LIQ (10 MG/5 ML) CUP PO ×2 (13:46→21:35)
[2018-03-12] MEDS: GABAPENTIN 300 MG CAP PO (20:22)
[2018-03-13 01:16] LABS: TROPONIN-I 0.029 ng/ml (0.000-0.120)
[2018-03-13] MEDS: ACCUCHECK AT 2AM (Patients on SS coverage) XX (01:54)
[2018-03-13] MEDS: DIPHENHYDRAMINE 50 MG INJ IV ×4 (03:54→20:29)
[2018-03-13] MEDS: morphine LIQ (10 MG/5 ML) CUP PO ×3 (03:54→16:19)
[2018-03-13] MEDS: PANTOPRAZOLE (EC) 40 MG TAB PO (06:00)
[2018-03-13] MEDS: CALCIUM ACETATE 667 MG CAP PO ×3 (07:50→18:21)
[2018-03-13] MEDS: INSULIN ASPART [NOVOLOG] 3 ML PEN SC ×4 (07:50→20:36)
[2018-03-13] MEDS: INSULIN GLARGINE [LANtus] 3 ML PEN SC ×2 (08:00→20:00)
[2018-03-13] MEDS: MINOXIDIL 2.5 MG TAB PO (08:32)
[2018-03-13] MEDS: METOPROLOL 100 MG TAB PO ×2 (08:33→21:00)
[2018-03-13] MEDS: LISINOPRIL 20 MG TAB PO (08:34)
[2018-03-13] MEDS: PENTOXIFYLLINE (SR) 400 MG TAB PO ×3 (08:34→23:15)
[2018-03-13] MEDS: SERTRALINE 50 MG TAB PO (08:35)
[2018-03-13] MEDS: NIFEdipine (XL) 30 MG TAB PO ×2 (08:36→21:00)
[2018-03-13] MEDS: REGADENOSON 0.4 MG/5 ML SYG (10:25)
[2018-03-13] MEDS: LUBIPROSTONE 8 MCG CAPSULE PO ×2 (12:46→23:15)
[2018-03-13] MEDS ORDERED: SODIUM CHLORIDE 0.9% 1L BAG IV (14:00)
[2018-03-13] MEDS ORDERED: HEPARIN 1000 UNITS/ML 10 ML INJ CATHETER (14:00)
[2018-03-13] MEDS ORDERED: ALBUMIN HUMAN 25% 50 ML IV (14:00)
[2018-03-13] MEDS: LIDOCAINE 2% JELLY 30 ML TOP (22:49)
[2018-03-13] MEDS: GABAPENTIN 300 MG CAP PO (23:14)
[2018-03-14] MEDS: ACCUCHECK AT 2AM (Patients on SS coverage) XX (01:01)
[2018-03-14] MEDS: PANTOPRAZOLE (EC) 40 MG TAB PO (06:00)
[2018-03-14] MEDS: INSULIN ASPART [NOVOLOG] 3 ML PEN SC ×4 (07:50→20:24)
[2018-03-14 08:56] LABS: ADD MAN DIFF? NO
[2018-03-14] MEDS: INSULIN GLARGINE [LANtus] 3 ML PEN SC ×3 (09:00→20:00)
[2018-03-14] MEDS: DIPHENHYDRAMINE 50 MG INJ IV ×2 (09:00→20:19)
[2018-03-14 09:03] LABS: BASOPHILS % 0.4 % (0.0-2.0); EOSINOPHILS # 0.6 10^3/ul (0.0-0.5); EOSINOPHILS % 10.8 % (0.0-7.0); HEMATOCRIT 22.4 % (42.0-52.0); HEMOGLOBIN 7.2 g/dl (14.0-18.0); LYMPHOCYTES # 0.8 10^3/ul (0.8-2.9); LYMPHOCYTES % 15.1 % (15.0-51.0); MEAN CORPUSCULAR HEMOGLOBIN 28.2 pg (29.0-33.0); MEAN CORPUSCULAR HGB CONC 32.1 g/dl (32.0-37.0); MEAN CORPUSCULAR VOLUME 87.8 fl (82.0-101.0); MEAN PLATELET VOLUME 10.3 fl (7.4-10.4); MONOCYTE # 0.4 10^3/ul (0.3-0.9); MONOCYTES % 8.2 % (0.0-11.0); NEUTROPHIL # 3.3 10^3/ul (1.6-7.5); NEUTROPHILS % 65.3 % (39.0-77.0); PLATELET COUNT 178 10^3/UL (140-415); RED BLOOD COUNT 2.55 10^6/ul (4.70-6.10); RED CELL DISTRIBUTION WIDTH 14.5 % (11.5-14.5)
[2018-03-14 09:03] LABS: WHITE BLOOD COUNT 5.1 10^3/ul (4.8-10.8)
[2018-03-14] MEDS: CALCIUM ACETATE 667 MG CAP PO ×3 (09:03→17:49)
[2018-03-14] MEDS: METOPROLOL 100 MG TAB PO ×2 (09:03→20:18)
[2018-03-14] MEDS: NIFEdipine (XL) 30 MG TAB PO ×2 (09:04→20:18)
[2018-03-14] MEDS: PENTOXIFYLLINE (SR) 400 MG TAB PO ×3 (09:04→20:17)
[2018-03-14] MEDS: SERTRALINE 50 MG TAB PO (09:04)
[2018-03-14] MEDS: LUBIPROSTONE 8 MCG CAPSULE PO ×2 (09:05→20:16)
[2018-03-14] MEDS: LISINOPRIL 20 MG TAB PO (09:05)
[2018-03-14] MEDS: MINOXIDIL 2.5 MG TAB PO (09:06)
[2018-03-14 09:22] LABS: PHOSPHORUS 3.6 mg/dl (2.5-4.9)
[2018-03-14 09:22] LABS: MAGNESIUM 2.1 mg/dl (1.7-2.5)
[2018-03-14 09:23] LABS: ANION GAP 17 (8-16); BLOOD UREA NITROGEN 44 mg/dl (7-20); CALCIUM 8.7 mg/dl (8.4-10.2); CARBON DIOXIDE 30 mmol/L (21-31); CHLORIDE 99 mmol/L (97-110); CREATININE 6.09 mg/dl (0.61-1.24); GLUCOSE 171 mg/dl (70-220); POTASSIUM 4.4 mmol/L (3.5-5.1); SODIUM 142 mmol/L (135-144)
[2018-03-14] MEDS: GABAPENTIN 300 MG CAP PO (20:18)
[2018-03-15] MEDS: ACCUCHECK AT 2AM (Patients on SS coverage) XX (01:22)
[2018-03-15] MEDS: morphine LIQ (10 MG/5 ML) CUP PO ×2 (03:54→13:47)
[2018-03-15] MEDS: DIPHENHYDRAMINE 50 MG INJ IV ×2 (03:54→14:37)
[2018-03-15] MEDS: PANTOPRAZOLE (EC) 40 MG TAB PO (05:42)
[2018-03-15] MEDS: CALCIUM ACETATE 667 MG CAP PO ×3 (07:50→18:10)
[2018-03-15] MEDS: INSULIN GLARGINE [LANtus] 3 ML PEN SC ×2 (08:00→20:00)
[2018-03-15] MEDS: LISINOPRIL 20 MG TAB PO (09:00)
[2018-03-15] MEDS: MINOXIDIL 2.5 MG TAB PO (09:00)
[2018-03-15] MEDS: NIFEdipine (XL) 30 MG TAB PO ×2 (09:00→21:00)
[2018-03-15] MEDS: METOPROLOL 100 MG TAB PO ×2 (09:00→21:00)
[2018-03-15] MEDS: INSULIN ASPART [NOVOLOG] 3 ML PEN SC ×4 (09:21→21:00)
[2018-03-15] MEDS: LUBIPROSTONE 8 MCG CAPSULE PO ×2 (09:27→21:42)
[2018-03-15] MEDS: SERTRALINE 50 MG TAB PO (09:28)
[2018-03-15] MEDS: PENTOXIFYLLINE (SR) 400 MG TAB PO ×3 (09:28→21:49)
[2018-03-15 11:41] LABS: ADD MAN DIFF? NO
[2018-03-15 11:45] LABS: BASOPHILS % 0.3 % (0.0-2.0); EOSINOPHILS # 0.6 10^3/ul (0.0-0.5); EOSINOPHILS % 9.7 % (0.0-7.0); HEMATOCRIT 22.4 % (42.0-52.0); HEMOGLOBIN 7.3 g/dl (14.0-18.0); LYMPHOCYTES # 0.8 10^3/ul (0.8-2.9); LYMPHOCYTES % 14.1 % (15.0-51.0); MEAN CORPUSCULAR HGB CONC 32.6 g/dl (32.0-37.0); MEAN CORPUSCULAR VOLUME 88.9 fl (82.0-101.0); MEAN PLATELET VOLUME 10.4 fl (7.4-10.4); MONOCYTE # 0.5 10^3/ul (0.3-0.9); MONOCYTES % 8.7 % (0.0-11.0); NEUTROPHIL # 3.9 10^3/ul (1.6-7.5); NEUTROPHILS % 66.9 % (39.0-77.0); PLATELET COUNT 180 10^3/UL (140-415); RED BLOOD COUNT 2.52 10^6/ul (4.70-6.10); RED CELL DISTRIBUTION WIDTH 14.2 % (11.5-14.5)
[2018-03-15 11:45] LABS: WHITE BLOOD COUNT 5.9 10^3/ul (4.8-10.8)
[2018-03-15 12:05] LABS: INR 1.09; PROTIME 14.3 Sec (11.9-14.9); PT RATIO 1.1
[2018-03-15 12:06] LABS: PARTIAL THROMBOPLASTIN TIME 50.4 Sec (25.0-35.0)
[2018-03-15] MEDS: PROPOFOL 40 ML (12:17)
[2018-03-15] MEDS: hydrALAzine 20 MG INJ (12:17)
[2018-03-15] MEDS: METOCLOPRAMIDE 10 MG INJ (12:24)
[2018-03-15] MEDS: ONDANSETRON 4 MG INJ (12:24)
[2018-03-15 12:30] LABS: ALANINE AMINOTRANSFERASE 19 IU/L (13-69); ALBUMIN/GLOBULIN RATIO 0.76; ALKALINE PHOSPHATASE 295 IU/L (42-121); ANION GAP 20 (8-16); ASPARTATE AMINO TRANSFERASE 17 IU/L (15-46); BILIRUBIN,INDIRECT 0.1 mg/dl (0-1.1); BILIRUBIN,TOTAL 0.1 mg/dl (0.2-1.3); BLOOD UREA NITROGEN 56 mg/dl (7-20); CALCIUM 8.7 mg/dl (8.4-10.2); CARBON DIOXIDE 25 mmol/L (21-31); CHLORIDE 103 mmol/L (97-110); CREATININE 8.04 mg/dl (0.61-1.24); GLUCOSE 130 mg/dl (70-220); SODIUM 143 mmol/L (135-144); TOTAL PROTEIN 9.2 g/dl (6.1-8.1)
[2018-03-15] MEDS ORDERED: MORPHINE 2 MG IV (13:39)
[2018-03-15] MEDS ORDERED: ONDANSETRON 4 MG INJ IV (13:40)
[2018-03-15] MEDS ORDERED: MEPERIDINE 25 MG INJ IV (13:41)
[2018-03-15] MEDS ORDERED: LABETALOL 5 MG IV (13:41)
[2018-03-15] MEDS: LIDOCAINE 1% (MDV) 10 ML INJ INJ (17:08)
[2018-03-15] MEDS: METOCLOPRAMIDE 10 MG INJ IV (18:09)
[2018-03-15] MEDS: GABAPENTIN 300 MG CAP PO (21:42)
[2018-03-16] MEDS: DIPHENHYDRAMINE 50 MG INJ IV ×3 (00:09→16:18)
[2018-03-16] MEDS: ACCU-CHEK XX (02:00)
[2018-03-16] MEDS: PANTOPRAZOLE (EC) 40 MG TAB PO (04:10)
[2018-03-16] MEDS: METOCLOPRAMIDE 10 MG INJ IV ×4 (04:24→17:42)
[2018-03-16] MEDS: CALCIUM ACETATE 667 MG CAP PO ×3 (07:46→17:41)
[2018-03-16] MEDS: INSULIN ASPART [NOVOLOG] 3 ML PEN SC ×3 (07:50→17:47)
[2018-03-16] MEDS: INSULIN GLARGINE [LANtus] 3 ML PEN SC (08:00)
[2018-03-16] MEDS: PENTOXIFYLLINE (SR) 400 MG TAB PO ×2 (09:00→13:00)
[2018-03-16] MEDS: LUBIPROSTONE 8 MCG CAPSULE PO (09:00)
[2018-03-16] MEDS: LISINOPRIL 20 MG TAB PO (09:00)
[2018-03-16] MEDS: SERTRALINE 50 MG TAB PO (09:00)
[2018-03-16] MEDS: MINOXIDIL 2.5 MG TAB PO (09:36)
[2018-03-16] MEDS: METOPROLOL 100 MG TAB PO (09:37)
[2018-03-16] MEDS: NIFEdipine (XL) 30 MG TAB PO (09:37)
[2018-03-16] MEDS ORDERED: CEFAZOLIN 1 GM/50 ML (PMX) 100 ML IVPB (09:47)
[2018-03-16] MEDS ORDERED: LABETALOL HCL 20MG INJ IV (10:00)
[2018-03-16] MEDS ORDERED: hydrALAzine 20 MG INJ IV (10:00)
[2018-03-16] MEDS ORDERED: FENTAnyl 50 MCG/ML VIAL IV (10:00)
[2018-03-16] MEDS ORDERED: HYDROmorphONE 1 MG/5 ML IV SYRINGE IV (10:00)
[2018-03-16] MEDS ORDERED: ONDANSETRON 4 MG INJ IV (10:00)
[2018-03-16 10:53] LABS: ADD MAN DIFF? NO
[2018-03-16 10:57] LABS: WHITE BLOOD COUNT 4.2 10^3/ul (4.8-10.8)
[2018-03-16 10:57] LABS: BASOPHILS % 0.5 % (0.0-2.0); EOSINOPHILS # 0.5 10^3/ul (0.0-0.5); EOSINOPHILS % 12.1 % (0.0-7.0); HEMATOCRIT 24.4 % (42.0-52.0); HEMOGLOBIN 7.5 g/dl (14.0-18.0); LYMPHOCYTES # 0.7 10^3/ul (0.8-2.9); LYMPHOCYTES % 17.3 % (15.0-51.0); MEAN CORPUSCULAR HEMOGLOBIN 28.2 pg (29.0-33.0); MEAN CORPUSCULAR HGB CONC 30.7 g/dl (32.0-37.0); MEAN CORPUSCULAR VOLUME 91.7 fl (82.0-101.0); MONOCYTE # 0.3 10^3/ul (0.3-0.9); NEUTROPHIL # 2.6 10^3/ul (1.6-7.5); NEUTROPHILS % 61.9 % (39.0-77.0); PLATELET COUNT 179 10^3/UL (140-415); RED BLOOD COUNT 2.66 10^6/ul (4.70-6.10); RED CELL DISTRIBUTION WIDTH 14.3 % (11.5-14.5)
[2018-03-16 11:17] LABS: ALANINE AMINOTRANSFERASE 25 IU/L (13-69); ALBUMIN 4.2 g/dl (3.3-4.9); ALBUMIN/GLOBULIN RATIO 0.89; ALKALINE PHOSPHATASE 290 IU/L (42-121); ANION GAP 20 (8-16); ASPARTATE AMINO TRANSFERASE 16 IU/L (15-46); BLOOD UREA NITROGEN 39 mg/dl (7-20); CALCIUM 8.9 mg/dl (8.4-10.2); CARBON DIOXIDE 27 mmol/L (21-31); CHLORIDE 102 mmol/L (97-110); CREATININE 5.93 mg/dl (0.61-1.24); GLUCOSE 112 mg/dl (70-220); POTASSIUM 4.7 mmol/L (3.5-5.1); SODIUM 144 mmol/L (135-144); TOTAL PROTEIN 8.9 g/dl (6.1-8.1)
[2018-03-16 11:19] LABS: PHOSPHORUS 4.5 mg/dl (2.5-4.9)
[2018-03-16] MEDS ORDERED: PROPOFOL 20 ML (11:56)
[2018-03-16] MEDS ORDERED: MIDAZOLAM 1 MG/ML 2 ML INJ (11:56)
[2018-03-16] MEDS ORDERED: FENTAnyl 50 MCG/ML VIAL (11:56)
[2018-03-16] MEDS ORDERED: LIDOCAINE 1% (MDV) 10 ML INJ (12:06)
[2018-03-16] MEDS ORDERED: SOD CHLORIDE 0.9% 500 ML (12:06)
[2018-03-16] MEDS ORDERED: hydrALAzine 20 MG INJ (12:26)
== END 2018-03-16 19:50 | disposition home or self-care (01) | DRG 811 ==
LOC: MS1 23:32 → E/R 18:44 → MS1 03-10 02:06
PROVIDERS: Internal Medicine
PROC: 0FPB8DZ Removal of Intraluminal Device from Hepatobiliary Duct, Via Natural or Artificial Opening Endoscopic (ICD-10-PCS; principal; 2018-03-15 11:32)
PROC: 0FPD8DZ Removal of Intraluminal Device from Pancreatic Duct, Via Natural or Artificial Opening Endoscopic (ICD-10-PCS; 2018-03-15 11:32)
PROC: 5A1D70Z Performance of Urinary Filtration, Intermittent, Less than 6 Hours Per Day (ICD-10-PCS; 2018-03-15 11:32)
DX: D64.89 Other specified anemias (principal); N18.6 End stage renal disease; I12.0 Hypertensive chronic kidney disease with stage 5 chronic kidney disease or end stage renal disease; I50.30 Unspecified diastolic (congestive) heart failure; L97.919 Non-pressure chronic ulcer of unspecified part of right lower leg with unspecified severity; E11.9 Type 2 diabetes mellitus without complications; K80.50 Calculus of bile duct without cholangitis or cholecystitis without obstruction; Z89.512 Acquired absence of left leg below knee; Z89.421 Acquired absence of other right toe(s); Z95.5 Presence of coronary angioplasty implant and graft; G54.6 Phantom limb syndrome with pain; R10.12 Left upper quadrant pain; R10.11 Right upper quadrant pain; I25.2 Old myocardial infarction; K59.00 Constipation, unspecified; K31.84 Gastroparesis; I70.239 Atherosclerosis of native arteries of right leg with ulceration of unspecified site
CPT/HCPCS: 36415; 36430; 74018; 74178; 75989; 78226; 78452; 80048; 80053; 82270; 82607; 82728; 82746; 82962; 83735; 84100; 84484; 85025; 85045; 85610; 85730; 86850; 86900; 86901; 86920; 87081; 87340; 90935; 93005; 93017; 96374; 96375; 99285-25

== ENCOUNTER 2018-07-12 15:51 | Emergency (ER) | payer OTHER ==
[2018-07-12] MEDS ORDERED: CEFTRIAXONE 2 GM/50 ML (PMX) 50 ML IVPB (17:00)
[2018-07-12] MEDS: CEFTRIAXONE 2 GM INJ IM (17:33)
== END 2018-07-12 17:56 | disposition home or self-care (01) ==
LOC: E/R 17:56 → FTE 15:51
DX: L02.512 Cutaneous abscess of left hand (principal); I25.10 Atherosclerotic heart disease of native coronary artery without angina pectoris; M60.9 Myositis, unspecified; I12.0 Hypertensive chronic kidney disease with stage 5 chronic kidney disease or end stage renal disease; N18.6 End stage renal disease; Z98.61 Coronary angioplasty status
CPT/HCPCS: 96372; 99284-25

== ENCOUNTER 2018-08-18 15:55 | Inpatient (IN) | payer OTHER ==
[2018-08-18 18:49] LABS: ADD MAN DIFF? NO
[2018-08-18] MEDS: DIPHENHYDRAMINE 50 MG INJ IV (18:49)
[2018-08-18 18:54] LABS: WHITE BLOOD COUNT 5.5 10^3/ul (4.8-10.8)
[2018-08-18 18:54] LABS: ABNORMAL IP MESSAGE 1; BASOPHILS % 0.5 % (0.0-2.0); EOSINOPHILS % 17.4 % (0.0-7.0); HEMOGLOBIN 9.7 g/dl (14.0-18.0); LYMPHOCYTES # 1.2 10^3/ul (0.8-2.9); LYMPHOCYTES % 21.2 % (15.0-51.0); MEAN CORPUSCULAR HEMOGLOBIN 30.1 pg (29.0-33.0); MEAN CORPUSCULAR HGB CONC 33.4 g/dl (32.0-37.0); MEAN CORPUSCULAR VOLUME 90.1 fl (82.0-101.0); MEAN PLATELET VOLUME 10.9 fl (7.4-10.4); MONOCYTE # 0.4 10^3/ul (0.3-0.9); NEUTROPHIL # 2.9 10^3/ul (1.6-7.5); NEUTROPHILS % 52.7 % (39.0-77.0); PLATELET COUNT 99 10^3/UL (140-415); POSITIVE DIFF @See below; RED BLOOD COUNT 3.22 10^6/ul (4.70-6.10); RED CELL DISTRIBUTION WIDTH 15.3 % (11.5-14.5)
[2018-08-18 19:09] LABS: INR 1.11; PROTIME 14.5 Sec (11.9-14.9); PT RATIO 1.1
[2018-08-18 19:10] LABS: PARTIAL THROMBOPLASTIN TIME 39.1 Sec (23.0-35.0)
[2018-08-18 19:12] LABS: ALBUMIN 4.3 g/dl (3.3-4.9); ALBUMIN/GLOBULIN RATIO 0.81; ALKALINE PHOSPHATASE 231 IU/L (42-121); AMYLASE 170 U/L (11-123); ANION GAP 18 (5-13); ASPARTATE AMINO TRANSFERASE 26 IU/L (15-46); BILIRUBIN,INDIRECT 0.1 mg/dl (0-1.1); BILIRUBIN,TOTAL 0.1 mg/dl (0.2-1.3); BLOOD UREA NITROGEN 69 mg/dl (7-20); CALCIUM 9.2 mg/dl (8.4-10.2); CARBON DIOXIDE 23 mmol/L (21-31); CHLORIDE 98 mmol/L (97-110); CREATININE 8.99 mg/dl (0.61-1.24); Estimated GFR 8 mL/min (>60); LIPASE 334 U/L (23-300); POTASSIUM 5.1 mmol/L (3.5-5.1); SODIUM 139 mmol/L (135-144); TOTAL PROTEIN 9.6 g/dl (6.1-8.1)
[2018-08-18 19:24] LABS: TROPONIN-I 0.013 ng/ml (0.000-0.120)
[2018-08-18 19:34] LABS: ALANINE AMINOTRANSFERASE < 6 IU/L (13-69)
[2018-08-18 19:35] LABS: GLUCOSE 468 mg/dl (70-220)
[2018-08-18] MEDS ORDERED: ONDANSETRON 4 MG INJ IV (20:00)
[2018-08-18] MEDS ORDERED: ACETAMINOPHEN 325 MG TAB PO ×2 (20:00→22:30)
[2018-08-18] MEDS: INSULIN LISPRO 100 UNIT/ML VIAL SC (20:03)
[2018-08-18] MEDS ORDERED: DEXTROSE 50% 50 ML SYRINGE (22:26)
[2018-08-18] MEDS ORDERED: DOCUSATE SODIUM 100 MG CAP PO (22:30)
[2018-08-18] MEDS ORDERED: BISACODYL (EC) 5 MG TAB PO (22:30)
[2018-08-18] MEDS ORDERED: HYDROCODONE/APAP (5/325) TAB PO (22:30)
[2018-08-18] MEDS ORDERED: NACL 0.9% 3 ML SYG IV (22:30)
[2018-08-18] MEDS ORDERED: ACETAMINOPHEN 650 MG SUPP PR (22:30)
[2018-08-18] MEDS ORDERED: GLUCOSE GEL 15 GRAM TUBE BUCCAL (23:00)
[2018-08-18] MEDS ORDERED: GLUCOSE GEL 15 GRAM TUBE PO (23:00)
[2018-08-18] MEDS ORDERED: GLUCAGON 1 MG INJ IM (23:00)
[2018-08-18] MEDS ORDERED: DEXTROSE 50% 50 ML SYRINGE IV ×2 (23:00)
[2018-08-18] MEDS: DEXTROSE 5% 1,000 ML IV (23:06)
[2018-08-18] MEDS: GLUCOSE GEL 15 GRAM TUBE PO (23:48)
[2018-08-19] MEDS: GLUCOSE GEL 15 GRAM TUBE PO (00:19)
[2018-08-19] MEDS: DEXTROSE 10% 1,000 ML IV (01:04)
[2018-08-19] MEDS: ACCU-CHEK XX (02:05)
[2018-08-19] MEDS: DOCUSATE SODIUM 100 MG CAP PO ×2 (03:56→21:29)
[2018-08-19] MEDS: FAMOTIDINE 20 MG TAB PO (08:54)
[2018-08-19] MEDS: NIFEdipine (XL) 30 MG TAB PO ×2 (08:55→21:29)
[2018-08-19] MEDS: LISINOPRIL 20 MG TAB PO (08:55)
[2018-08-19] MEDS: SERTRALINE 50 MG TAB PO (08:55)
[2018-08-19] MEDS: CALCIUM ACETATE 667 MG CAP PO ×3 (08:56→17:42)
[2018-08-19] MEDS: INSULIN ASPART [NOVOLOG] 3 ML PEN SC ×4 (09:34→21:47)
[2018-08-19] MEDS: PENTOXIFYLLINE (SR) 400 MG TAB PO ×3 (10:05→21:29)
[2018-08-19] MEDS: MINOXIDIL 2.5 MG TAB PO (10:06)
[2018-08-19] MEDS: morphine 2 MG INJ IV ×2 (10:06→17:57)
[2018-08-19 10:47] LABS: HEMOGLOBIN A1C 9.2 % (0-5.9)
[2018-08-19] MEDS: DIPHENHYDRAMINE 50 MG INJ IV ×2 (10:47→21:28)
[2018-08-19 10:53] LABS: ALANINE AMINOTRANSFERASE 15 IU/L (13-69); ALBUMIN 4.3 g/dl (3.3-4.9); ALBUMIN/GLOBULIN RATIO 0.82; ALKALINE PHOSPHATASE 200 IU/L (42-121); ANION GAP 18 (5-13); ASPARTATE AMINO TRANSFERASE 27 IU/L (15-46); BILIRUBIN,INDIRECT 0.2 mg/dl (0-1.1); BILIRUBIN,TOTAL 0.2 mg/dl (0.2-1.3); BLOOD UREA NITROGEN 77 mg/dl (7-20); CALCIUM 9.5 mg/dl (8.4-10.2); CARBON DIOXIDE 21 mmol/L (21-31); CHLORIDE 100 mmol/L (97-110); CREATININE 9.76 mg/dl (0.61-1.24); Estimated GFR 7 mL/min (>60); GLUCOSE 239 mg/dl (70-220); POTASSIUM 5.2 mmol/L (3.5-5.1); SODIUM 139 mmol/L (135-144); TOTAL PROTEIN 9.5 g/dl (6.1-8.1)
[2018-08-19] MEDS: ONDANSETRON 4 MG INJ IV ×2 (13:50→22:27)
[2018-08-20] MEDS: ZOLPIDEM 5 MG TAB PO (00:21)
[2018-08-20] MEDS: ACCU-CHEK XX (02:00)
[2018-08-20] MEDS: morphine 2 MG INJ IV ×2 (03:17→09:05)
[2018-08-20] MEDS: INSULIN ASPART [NOVOLOG] 3 ML PEN SC ×4 (08:52→17:37)
[2018-08-20] MEDS: MINOXIDIL 2.5 MG TAB PO (09:00)
[2018-08-20] MEDS: LISINOPRIL 20 MG TAB PO (09:00)
[2018-08-20] MEDS: NIFEdipine (XL) 30 MG TAB PO (09:00)
[2018-08-20] MEDS: DOCUSATE SODIUM 100 MG CAP PO (09:00)
[2018-08-20] MEDS: DIPHENHYDRAMINE 50 MG INJ IV ×2 (09:05→16:04)
[2018-08-20] MEDS: hydrALAzine 20 MG INJ IV (09:27)
[2018-08-20] MEDS: CALCIUM ACETATE 667 MG CAP PO ×3 (10:32→17:38)
[2018-08-20] MEDS: FAMOTIDINE 20 MG TAB PO (10:33)
[2018-08-20] MEDS: PENTOXIFYLLINE (SR) 400 MG TAB PO ×2 (10:33→12:26)
[2018-08-20] MEDS: SERTRALINE 50 MG TAB PO (10:44)
[2018-08-20 15:22] LABS: HEPATITIS B SURFACE ANTIGEN NEGATIVE (NEGATIVE)
[2018-08-20] MEDS: LIDOCAINE 1% (MPF) 5 ML VIAL INFIL (16:03)
== END 2018-08-20 20:25 | disposition home or self-care (01) | DRG 252 ==
LOC: TEL 08-19 01:52 → E/R 15:55 → 2NE 19:45
PROC: 03783ZZ Dilation of Left Brachial Artery, Percutaneous Approach (ICD-10-PCS; principal; 2018-08-20 11:00)
PROC: 057C3ZZ Dilation of Left Basilic Vein, Percutaneous Approach (ICD-10-PCS; 2018-08-20 11:00)
PROC: 5A1D70Z Performance of Urinary Filtration, Intermittent, Less than 6 Hours Per Day (ICD-10-PCS; 2018-08-20 11:08)
DX: T82.590A Other mechanical complication of surgically created arteriovenous fistula, initial encounter (principal); N18.6 End stage renal disease; I12.0 Hypertensive chronic kidney disease with stage 5 chronic kidney disease or end stage renal disease; E11.22 Type 2 diabetes mellitus with diabetic chronic kidney disease; Z99.2 Dependence on renal dialysis; Z89.512 Acquired absence of left leg below knee
CPT/HCPCS: 36902; 37248; 71045; 80053; 82150; 82962; 83036; 83690; 84484; 85025; 85610; 85730; 87081; 87340; 90935; 93005; 93931; 96374; 99285-25

== ENCOUNTER 2018-11-22 14:02 | Inpatient (IN) | payer OTHER ==
[2018-11-22 20:07] LABS: BASOPHILS % 0.4 % (0.0-2.0); EOSINOPHILS # 1.4 10^3/ul (0.0-0.5); EOSINOPHILS % 14.4 % (0.0-7.0); HEMATOCRIT 25.6 % (42.0-52.0); HEMOGLOBIN 8.1 g/dl (14.0-18.0); MEAN CORPUSCULAR HEMOGLOBIN 29.3 pg (29.0-33.0); MEAN CORPUSCULAR HGB CONC 31.6 g/dl (32.0-37.0); MEAN CORPUSCULAR VOLUME 92.8 fl (82.0-101.0); MEAN PLATELET VOLUME 10.4 fl (7.4-10.4); MONOCYTE # 0.8 10^3/ul (0.3-0.9); NEUTROPHIL # 6.5 10^3/ul (1.6-7.5); NEUTROPHILS % 66.6 % (39.0-77.0); PLATELET COUNT 217 10^3/UL (140-415); RED BLOOD COUNT 2.76 10^6/ul (4.70-6.10); RED CELL DISTRIBUTION WIDTH 13.2 % (11.5-14.5)
[2018-11-22 20:07] LABS: WHITE BLOOD COUNT 9.7 10^3/ul (4.8-10.8)
[2018-11-22 20:14] LABS: ADD MAN DIFF? NO
[2018-11-22] MEDS: morphine 4 MG/ML VIAL IV (20:15)
[2018-11-22] MEDS: ONDANSETRON 4 MG INJ IV (20:15)
[2018-11-22] MEDS: PIPER-TAZO 3.375 GM IV (PMX) 100 ML IVPB (20:18)
[2018-11-22 20:19] LABS: ANION GAP 18 (5-13); BLOOD UREA NITROGEN 48 mg/dl (7-20); CALCIUM 9.2 mg/dl (8.4-10.2); CARBON DIOXIDE 27 mmol/L (21-31); CHLORIDE 98 mmol/L (97-110); CREATININE 8.72 mg/dl (0.61-1.24); Estimated GFR 8 mL/min (>60); GLUCOSE 130 mg/dl (70-220); SODIUM 143 mmol/L (135-144)
[2018-11-22 20:39] LABS: INR 1.33; PROTIME 16.6 Sec (11.9-14.9); PT RATIO 1.3
[2018-11-22 20:41] LABS: PARTIAL THROMBOPLASTIN TIME 56.8 Sec (23.0-35.0)
[2018-11-22] MEDS: VANCOMYCIN 1 GM (PMX) 250 ML IVPB (20:59)
[2018-11-22] MEDS ORDERED: ONDANSETRON 4 MG INJ IV (23:00)
[2018-11-22] MEDS ORDERED: ACETAMINOPHEN 325 MG TAB PO (23:00)
[2018-11-23] MEDS ORDERED: HYDROCODONE/APAP (7.5/325) TAB PO (02:00)
[2018-11-23] MEDS ORDERED: VANCOMYCIN IV PER PHARMACY XX (02:00)
[2018-11-23] MEDS ORDERED: NON-FORMULARY/PATIENT OWN MED (Temazepam* 30 MG) PO (02:00)
[2018-11-23] MEDS: VANCOMYCIN 500 MG (PMX) 100 ML IVPB ×2 (02:44→13:12)
[2018-11-23] MEDS ORDERED: GLUCOSE GEL 15 GRAM TUBE BUCCAL (07:00)
[2018-11-23] MEDS ORDERED: GLUCAGON 1 MG INJ IM (07:00)
[2018-11-23] MEDS ORDERED: DEXTROSE 50% 50 ML SYRINGE IV ×2 (07:00)
[2018-11-23] MEDS ORDERED: GLUCOSE GEL 15 GRAM TUBE PO ×2 (07:00)
[2018-11-23] MEDS: INSULIN ASPART [NOVOLOG] 3 ML PEN SC ×4 (08:00→21:00)
[2018-11-23] MEDS: PENTOXIFYLLINE (SR) 400 MG TAB PO ×3 (08:03→17:41)
[2018-11-23] MEDS: CALCIUM ACETATE 667 MG CAP PO ×3 (08:03→17:41)
[2018-11-23] MEDS: LORATADINE 10 MG TAB PO (08:27)
[2018-11-23] MEDS ORDERED: NON-FORMULARY/PATIENT OWN MED (Cetirizine Hcl* 10 MG) PO (09:00)
[2018-11-23] MEDS: DOCUSATE SODIUM 100 MG CAP PO ×2 (09:00→21:00)
[2018-11-23] MEDS: LISINOPRIL 20 MG TAB PO (09:00)
[2018-11-23] MEDS: MINOXIDIL 10 MG TAB PO ×2 (09:00→21:40)
[2018-11-23] MEDS: PIPER-TAZO 2.25 GM (PMX) 50 ML IVPB ×3 (12:24→21:54)
[2018-11-23] MEDS: morphine 2 MG INJ IV ×3 (14:44→23:10)
[2018-11-23] MEDS: PANTOPRAZOLE (EC) 40 MG TAB PO (14:45)
[2018-11-23 15:17] LABS: HEPATITIS B SURFACE ANTIGEN NEGATIVE (NEGATIVE)
[2018-11-23 15:34] LABS: HEPATITIS B SURFACE ANTIBODY NEGATIVE (NEGATIVE)
[2018-11-23] MEDS: LIDOCAINE 2% JELLY 5 ML TOP (16:54)
[2018-11-23 17:57] LABS: ADD MAN DIFF? NO
[2018-11-23 18:02] LABS: WHITE BLOOD COUNT 5.7 10^3/ul (4.8-10.8)
[2018-11-23 18:02] LABS: BASOPHILS % 0.4 % (0.0-2.0); EOSINOPHILS % 18.2 % (0.0-7.0); HEMATOCRIT 23.1 % (42.0-52.0); HEMOGLOBIN 7.3 g/dl (14.0-18.0); LYMPHOCYTES # 0.6 10^3/ul (0.8-2.9); LYMPHOCYTES % 10.8 % (15.0-51.0); MEAN CORPUSCULAR HEMOGLOBIN 29.2 pg (29.0-33.0); MEAN CORPUSCULAR HGB CONC 31.6 g/dl (32.0-37.0); MEAN CORPUSCULAR VOLUME 92.4 fl (82.0-101.0); MEAN PLATELET VOLUME 10.4 fl (7.4-10.4); MONOCYTE # 0.3 10^3/ul (0.3-0.9); MONOCYTES % 4.4 % (0.0-11.0); NEUTROPHIL # 3.7 10^3/ul (1.6-7.5); NEUTROPHILS % 65.7 % (39.0-77.0); PLATELET COUNT 190 10^3/UL (140-415); RED CELL DISTRIBUTION WIDTH 13.2 % (11.5-14.5)
[2018-11-23 18:27] LABS: ANION GAP 15 (5-13); BLOOD UREA NITROGEN 47 mg/dl (7-20); CALCIUM 8.8 mg/dl (8.4-10.2); CARBON DIOXIDE 27 mmol/L (21-31); CHLORIDE 101 mmol/L (97-110); CREATININE 9.09 mg/dl (0.61-1.24); Estimated GFR 8 mL/min (>60); GLUCOSE 104 mg/dl (70-220); POTASSIUM 4.1 mmol/L (3.5-5.1); SODIUM 143 mmol/L (135-144)
[2018-11-23] MEDS: hydrOXYzine HCL 25 MG TAB PO (19:21)
[2018-11-23] MEDS: HEPARIN 5,000 UNIT/1 ML VIAL SC (21:48)
[2018-11-23] MEDS: DIPHENHYDRAMINE 25 MG CAP PO (23:10)
[2018-11-24] MEDS: morphine 2 MG INJ IV ×5 (05:15→22:33)
[2018-11-24] MEDS: PANTOPRAZOLE (EC) 40 MG TAB PO (05:19)
[2018-11-24] MEDS: PIPER-TAZO 2.25 GM (PMX) 50 ML IVPB ×3 (05:20→22:39)
[2018-11-24] MEDS: INSULIN ASPART [NOVOLOG] 3 ML PEN SC ×4 (08:00→21:00)
[2018-11-24] MEDS: PENTOXIFYLLINE (SR) 400 MG TAB PO ×3 (08:28→17:54)
[2018-11-24] MEDS: DOCUSATE SODIUM 100 MG CAP PO ×2 (08:28→22:28)
[2018-11-24] MEDS: CALCIUM ACETATE 667 MG CAP PO ×3 (08:29→17:54)
[2018-11-24] MEDS: LORATADINE 10 MG TAB PO (08:31)
[2018-11-24] MEDS: LISINOPRIL 20 MG TAB PO (08:31)
[2018-11-24] MEDS: MINOXIDIL 10 MG TAB PO ×2 (08:31→22:28)
[2018-11-24] MEDS: HEPARIN 5,000 UNIT/1 ML VIAL SC ×2 (08:32→22:32)
[2018-11-24 11:33] LABS: ADD MAN DIFF? NO
[2018-11-24 11:39] LABS: BASOPHILS % 0.5 % (0.0-2.0); EOSINOPHILS # 0.9 10^3/ul (0.0-0.5); EOSINOPHILS % 15.4 % (0.0-7.0); HEMATOCRIT 25.2 % (42.0-52.0); LYMPHOCYTES # 0.6 10^3/ul (0.8-2.9); LYMPHOCYTES % 10.6 % (15.0-51.0); MEAN CORPUSCULAR HEMOGLOBIN 29.4 pg (29.0-33.0); MEAN CORPUSCULAR HGB CONC 31.7 g/dl (32.0-37.0); MEAN CORPUSCULAR VOLUME 92.6 fl (82.0-101.0); MEAN PLATELET VOLUME 10.7 fl (7.4-10.4); MONOCYTE # 0.6 10^3/ul (0.3-0.9); MONOCYTES % 9.1 % (0.0-11.0); NEUTROPHIL # 3.9 10^3/ul (1.6-7.5); NEUTROPHILS % 64.2 % (39.0-77.0); PLATELET COUNT 196 10^3/UL (140-415); RED BLOOD COUNT 2.72 10^6/ul (4.70-6.10); RED CELL DISTRIBUTION WIDTH 13.2 % (11.5-14.5)
[2018-11-24 11:49] LABS: HEMOGLOBIN A1C 7.5 % (0-5.9)
[2018-11-24 12:03] LABS: ANION GAP 14 (5-13); BLOOD UREA NITROGEN 26 mg/dl (7-20); CALCIUM 9.1 mg/dl (8.4-10.2); CARBON DIOXIDE 31 mmol/L (21-31); CHLORIDE 101 mmol/L (97-110); CREATININE 6.75 mg/dl (0.61-1.24); Estimated GFR 11 mL/min (>60); GLUCOSE 86 mg/dl (70-220); POTASSIUM 3.8 mmol/L (3.5-5.1); SODIUM 146 mmol/L (135-144)
[2018-11-24] MEDS: AMLODIPINE 10 MG TAB PO (16:18)
[2018-11-24] MEDS: EPOETIN 4000 UNITS/1 ML INJ (ESRD) SC (17:51)
[2018-11-24] MEDS: SOD CHLORIDE 0.9% 100 ML (19:48)
[2018-11-24] MEDS: IODIXANOL LOCM 100 ML BTL (19:48)
[2018-11-25] MEDS: morphine 2 MG INJ IV ×5 (04:05→23:55)
[2018-11-25] MEDS: PIPER-TAZO 2.25 GM (PMX) 50 ML IVPB ×3 (06:47→23:19)
[2018-11-25] MEDS: PANTOPRAZOLE (EC) 40 MG TAB PO (06:48)
[2018-11-25] MEDS: INSULIN ASPART [NOVOLOG] 3 ML PEN SC ×4 (08:00→21:00)
[2018-11-25 08:47] LABS: ADD MAN DIFF? NO
[2018-11-25 08:49] LABS: BASOPHILS % 0.3 % (0.0-2.0); EOSINOPHILS # 1.1 10^3/ul (0.0-0.5); EOSINOPHILS % 14.9 % (0.0-7.0); HEMATOCRIT 27.5 % (42.0-52.0); HEMOGLOBIN 8.6 g/dl (14.0-18.0); LYMPHOCYTES # 0.7 10^3/ul (0.8-2.9); LYMPHOCYTES % 9.2 % (15.0-51.0); MEAN CORPUSCULAR HEMOGLOBIN 28.5 pg (29.0-33.0); MEAN CORPUSCULAR HGB CONC 31.3 g/dl (32.0-37.0); MEAN CORPUSCULAR VOLUME 91.1 fl (82.0-101.0); MEAN PLATELET VOLUME 10.4 fl (7.4-10.4); MONOCYTE # 0.4 10^3/ul (0.3-0.9); MONOCYTES % 6.2 % (0.0-11.0); NEUTROPHIL # 4.9 10^3/ul (1.6-7.5); NEUTROPHILS % 68.8 % (39.0-77.0); PLATELET COUNT 207 10^3/UL (140-415); RED BLOOD COUNT 3.02 10^6/ul (4.70-6.10); RED CELL DISTRIBUTION WIDTH 12.9 % (11.5-14.5)
[2018-11-25 08:49] LABS: WHITE BLOOD COUNT 7.1 10^3/ul (4.8-10.8)
[2018-11-25] MEDS: HEPARIN 5,000 UNIT/1 ML VIAL SC ×2 (08:52→21:00)
[2018-11-25] MEDS: DOCUSATE SODIUM 100 MG CAP PO ×2 (08:55→21:00)
[2018-11-25] MEDS: CALCIUM ACETATE 667 MG CAP PO ×3 (08:55→17:04)
[2018-11-25] MEDS: LORATADINE 10 MG TAB PO (08:55)
[2018-11-25] MEDS: PENTOXIFYLLINE (SR) 400 MG TAB PO ×3 (08:55→17:05)
[2018-11-25] MEDS: MINOXIDIL 10 MG TAB PO ×2 (08:56→21:28)
[2018-11-25] MEDS: LISINOPRIL 20 MG TAB PO (08:57)
[2018-11-25] MEDS: AMLODIPINE 10 MG TAB PO (08:57)
[2018-11-25 09:09] LABS: VANCOMYCIN,RANDOM 10.7 ug/ml
[2018-11-25 09:10] LABS: ANION GAP 14 (5-13); BLOOD UREA NITROGEN 29 mg/dl (7-20); CALCIUM 9.4 mg/dl (8.4-10.2); CARBON DIOXIDE 30 mmol/L (21-31); CHLORIDE 104 mmol/L (97-110); CREATININE 8.34 mg/dl (0.61-1.24); Estimated GFR 8 mL/min (>60); GLUCOSE 119 mg/dl (70-220); SODIUM 148 mmol/L (135-144)
[2018-11-25] MEDS: LIDOCAINE 2% JELLY 5 ML TOP (16:18)
[2018-11-25] MEDS: DIPHENHYDRAMINE 50 MG INJ IV ×2 (18:38→23:55)
[2018-11-25] MEDS: VANCOMYCIN 1 GM 250 ML IVPB (20:25)
[2018-11-25] MEDS: SOD CHLORIDE 0.9% 100 ML (21:04)
[2018-11-25] MEDS: IOHEXOL 100 ML (21:04)
[2018-11-26] MEDS: morphine 2 MG INJ IV ×5 (04:18→23:26)
[2018-11-26] MEDS: PANTOPRAZOLE (EC) 40 MG TAB PO (06:00)
[2018-11-26] MEDS: PIPER-TAZO 2.25 GM (PMX) 50 ML IVPB (06:11)
[2018-11-26] MEDS: INSULIN ASPART [NOVOLOG] 3 ML PEN SC ×4 (08:00→21:00)
[2018-11-26] MEDS: PENTOXIFYLLINE (SR) 400 MG TAB PO ×3 (08:29→17:52)
[2018-11-26] MEDS: MINOXIDIL 10 MG TAB PO ×2 (08:29→21:06)
[2018-11-26] MEDS: CALCIUM ACETATE 667 MG CAP PO ×3 (08:30→17:52)
[2018-11-26] MEDS: DOCUSATE SODIUM 100 MG CAP PO ×2 (08:30→21:00)
[2018-11-26] MEDS: AMLODIPINE 10 MG TAB PO (08:31)
[2018-11-26] MEDS: LISINOPRIL 20 MG TAB PO (08:32)
[2018-11-26] MEDS: LORATADINE 10 MG TAB PO ×2 (08:32→12:30)
[2018-11-26] MEDS: HEPARIN 5,000 UNIT/1 ML VIAL SC ×2 (08:33→21:00)
[2018-11-26] MEDS: DIPHENHYDRAMINE 50 MG INJ IV ×2 (08:34→18:21)
[2018-11-26] MEDS: LIDOCAINE 1% (MPF) 5 ML VIAL SC (10:01)
[2018-11-26 11:51] LABS: ANION GAP 12 (5-13); BLOOD UREA NITROGEN 17 mg/dl (7-20); CALCIUM 9.4 mg/dl (8.4-10.2); CARBON DIOXIDE 32 mmol/L (21-31); CHLORIDE 103 mmol/L (97-110); CREATININE 5.77 mg/dl (0.61-1.24); Estimated GFR 13 mL/min (>60); GLUCOSE 95 mg/dl (70-220); POTASSIUM 3.7 mmol/L (3.5-5.1); SODIUM 147 mmol/L (135-144)
[2018-11-26] MEDS: CEFTRIAXONE 1 GM/50 ML (PMX) 50 ML IVPB (13:10)
[2018-11-26] MEDS: ONDANSETRON 4 MG INJ IV (15:19)
[2018-11-26] MEDS: IVERMECTIN 3 MG TAB PO (15:21)
[2018-11-26] MEDS: PERMETHRIN 5% 60 GM CR TOP (21:10)
[2018-11-27] MEDS: DIPHENHYDRAMINE 50 MG INJ IV ×3 (03:00→20:37)
[2018-11-27] MEDS: morphine 2 MG INJ IV ×3 (05:04→20:37)
[2018-11-27] MEDS: PANTOPRAZOLE (EC) 40 MG TAB PO (07:34)
[2018-11-27] MEDS: INSULIN ASPART [NOVOLOG] 3 ML PEN SC ×4 (08:00→20:42)
[2018-11-27] MEDS: AMLODIPINE 10 MG TAB PO (09:00)
[2018-11-27] MEDS: MINOXIDIL 10 MG TAB PO ×2 (09:00→20:37)
[2018-11-27] MEDS: LISINOPRIL 20 MG TAB PO (09:00)
[2018-11-27] MEDS: LORATADINE 10 MG TAB PO (09:33)
[2018-11-27] MEDS: HEPARIN 5,000 UNIT/1 ML VIAL SC (09:33)
[2018-11-27] MEDS: CALCIUM ACETATE 667 MG CAP PO ×3 (09:33→18:00)
[2018-11-27] MEDS: DOCUSATE SODIUM 100 MG CAP PO ×2 (09:34→20:42)
[2018-11-27] MEDS: PENTOXIFYLLINE (SR) 400 MG TAB PO ×3 (09:34→18:00)
[2018-11-27] MEDS: LIDOCAINE 2% JELLY 5 ML TOP (12:20)
[2018-11-27] MEDS: CEFTRIAXONE 1 GM/50 ML (PMX) 50 ML IVPB ×2 (12:30→15:34)
[2018-11-27] MEDS: EPOETIN 4000 UNITS/1 ML INJ (ESRD) SC (18:27)
[2018-11-28] MEDS: DEXTROSE 5%-0.45% NACL 1,000 ML IV (00:04)
[2018-11-28] MEDS: DIPHENHYDRAMINE 50 MG INJ IV ×3 (00:38→10:16)
[2018-11-28] MEDS: morphine 2 MG INJ IV ×5 (00:39→22:44)
[2018-11-28] MEDS: INSULIN ASPART [NOVOLOG] 3 ML PEN SC ×5 (05:00→21:00)
[2018-11-28] MEDS: PANTOPRAZOLE (EC) 40 MG TAB PO (05:16)
[2018-11-28 05:28] LABS: ADD MAN DIFF? NO
[2018-11-28 05:30] LABS: WHITE BLOOD COUNT 8.2 10^3/ul (4.8-10.8)
[2018-11-28 05:30] LABS: BASOPHILS % 0.5 % (0.0-2.0); EOSINOPHILS # 1.1 10^3/ul (0.0-0.5); EOSINOPHILS % 12.9 % (0.0-7.0); HEMATOCRIT 28.3 % (42.0-52.0); HEMOGLOBIN 8.8 g/dl (14.0-18.0); LYMPHOCYTES # 1.1 10^3/ul (0.8-2.9); LYMPHOCYTES % 12.8 % (15.0-51.0); MEAN CORPUSCULAR HEMOGLOBIN 28.3 pg (29.0-33.0); MEAN CORPUSCULAR HGB CONC 31.1 g/dl (32.0-37.0); MONOCYTE # 0.5 10^3/ul (0.3-0.9); MONOCYTES % 5.9 % (0.0-11.0); NEUTROPHIL # 5.5 10^3/ul (1.6-7.5); NEUTROPHILS % 67.2 % (39.0-77.0); PLATELET COUNT 205 10^3/UL (140-415); RED BLOOD COUNT 3.11 10^6/ul (4.70-6.10); RED CELL DISTRIBUTION WIDTH 13.3 % (11.5-14.5)
[2018-11-28 05:48] LABS: ANION GAP 11 (5-13); BLOOD UREA NITROGEN 15 mg/dl (7-20); CALCIUM 9.6 mg/dl (8.4-10.2); CARBON DIOXIDE 32 mmol/L (21-31); CHLORIDE 103 mmol/L (97-110); CREATININE 5.19 mg/dl (0.61-1.24); Estimated GFR 14 mL/min (>60); GLUCOSE 78 mg/dl (70-220); POTASSIUM 4.3 mmol/L (3.5-5.1); SODIUM 146 mmol/L (135-144)
[2018-11-28 05:52] LABS: VANCOMYCIN,RANDOM 15.7 ug/ml
[2018-11-28 06:11] LABS: MAGNESIUM 2.1 mg/dl (1.7-2.5)
[2018-11-28 06:11] LABS: PHOSPHORUS 3.3 mg/dl (2.5-4.9)
[2018-11-28] MEDS ORDERED: HEPARIN 1000 UNITS/ML 10 ML INJ (07:26)
[2018-11-28] MEDS ORDERED: LIDOCAINE 1% (MDV) 20 ML INJ ×2 (07:27→08:10)
[2018-11-28] MEDS ORDERED: FENTAnyl 50 MCG/ML VIAL (07:27)
[2018-11-28] MEDS ORDERED: HEPARIN 1000 UNITS/NS (A-LINE) 1,000 ML (07:27)
[2018-11-28] MEDS ORDERED: IODIXANOL LOCM 100 ML BTL ×2 (07:27→08:10)
[2018-11-28] MEDS ORDERED: MIDAZOLAM 1 MG/ML 2 ML INJ ×2 (07:27→07:45)
[2018-11-28] MEDS ORDERED: SOD CHLORIDE 0.9% 500 ML (07:30)
[2018-11-28] MEDS: CALCIUM ACETATE 667 MG CAP PO ×3 (08:00→18:17)
[2018-11-28] MEDS: PENTOXIFYLLINE (SR) 400 MG TAB PO ×3 (08:00→18:17)
[2018-11-28] MEDS: LORATADINE 10 MG TAB PO (08:49)
[2018-11-28] MEDS: LISINOPRIL 20 MG TAB PO (08:50)
[2018-11-28] MEDS: DOCUSATE SODIUM 100 MG CAP PO ×2 (08:50→21:00)
[2018-11-28] MEDS: AMLODIPINE 10 MG TAB PO (08:50)
[2018-11-28] MEDS: MINOXIDIL 10 MG TAB PO ×2 (08:50→21:36)
[2018-11-28] MEDS: CEFTRIAXONE 1 GM/50 ML (PMX) 50 ML IVPB (12:54)
[2018-11-28] MEDS: TRIAMCINOLONE ACET 0.1% 15 GM CR TOP ×2 (13:00→21:33)
[2018-11-29] MEDS: ACCU-CHEK XX (01:57)
[2018-11-29] MEDS: morphine 2 MG INJ IV ×4 (02:43→20:00)
[2018-11-29] MEDS: PANTOPRAZOLE (EC) 40 MG TAB PO (06:00)
[2018-11-29] MEDS: INSULIN ASPART [NOVOLOG] 3 ML PEN SC ×4 (08:00→21:00)
[2018-11-29] MEDS: VANCOMYCIN 1 GM 250 ML IVPB (08:40)
[2018-11-29] MEDS: LORATADINE 10 MG TAB PO (08:43)
[2018-11-29] MEDS: CALCIUM ACETATE 667 MG CAP PO ×3 (08:43→18:00)
[2018-11-29] MEDS: DOCUSATE SODIUM 100 MG CAP PO ×2 (08:43→21:33)
[2018-11-29] MEDS: PENTOXIFYLLINE (SR) 400 MG TAB PO ×3 (08:44→18:00)
[2018-11-29] MEDS: TRIAMCINOLONE ACET 0.1% 15 GM CR TOP ×3 (08:45→21:37)
[2018-11-29] MEDS: AMLODIPINE 10 MG TAB PO (09:00)
[2018-11-29] MEDS: MINOXIDIL 10 MG TAB PO ×2 (09:00→21:34)
[2018-11-29] MEDS: LISINOPRIL 20 MG TAB PO (09:00)
[2018-11-29] MEDS: CEFTRIAXONE 1 GM/50 ML (PMX) 50 ML IVPB (12:50)
[2018-11-29] MEDS: DIPHENHYDRAMINE 50 MG INJ IV ×2 (14:20→20:00)
[2018-11-29] MEDS: LIDOCAINE 2% JELLY 5 ML TOP (15:15)
[2018-11-29] MEDS: EPOETIN 4000 UNITS/1 ML INJ (ESRD) SC (20:03)
[2018-11-30] MEDS: DIPHENHYDRAMINE 50 MG INJ IV ×6 (00:17→23:23)
[2018-11-30] MEDS: morphine 2 MG INJ IV ×6 (00:18→23:23)
[2018-11-30] MEDS: ACCU-CHEK XX ×2 (01:42→21:47)
[2018-11-30] MEDS: PANTOPRAZOLE (EC) 40 MG TAB PO (05:17)
[2018-11-30] MEDS: INSULIN ASPART [NOVOLOG] 3 ML PEN SC ×4 (08:00→21:00)
[2018-11-30] MEDS: PENTOXIFYLLINE (SR) 400 MG TAB PO ×3 (09:33→19:00)
[2018-11-30] MEDS: LORATADINE 10 MG TAB PO (09:33)
[2018-11-30] MEDS: CALCIUM ACETATE 667 MG CAP PO ×3 (09:33→19:00)
[2018-11-30] MEDS: LISINOPRIL 20 MG TAB PO (09:34)
[2018-11-30] MEDS: DOCUSATE SODIUM 100 MG CAP PO ×2 (09:34→20:52)
[2018-11-30] MEDS: MINOXIDIL 10 MG TAB PO ×2 (09:34→20:53)
[2018-11-30] MEDS: AMLODIPINE 10 MG TAB PO (09:34)
[2018-11-30] MEDS: TRIAMCINOLONE ACET 0.1% 15 GM CR TOP ×3 (09:35→20:54)
[2018-11-30 10:17] LABS: ADD MAN DIFF? NO
[2018-11-30 10:26] LABS: BASOPHILS % 0.5 % (0.0-2.0); EOSINOPHILS % 11.7 % (0.0-7.0); HEMATOCRIT 29.3 % (42.0-52.0); HEMOGLOBIN 9.1 g/dl (14.0-18.0); LYMPHOCYTES # 1.2 10^3/ul (0.8-2.9); LYMPHOCYTES % 13.7 % (15.0-51.0); MEAN CORPUSCULAR HGB CONC 31.1 g/dl (32.0-37.0); MEAN CORPUSCULAR VOLUME 90.2 fl (82.0-101.0); MEAN PLATELET VOLUME 9.5 fl (7.4-10.4); MONOCYTE # 0.7 10^3/ul (0.3-0.9); MONOCYTES % 7.7 % (0.0-11.0); NEUTROPHIL # 5.7 10^3/ul (1.6-7.5); NEUTROPHILS % 65.8 % (39.0-77.0); PLATELET COUNT 173 10^3/UL (140-415); RED BLOOD COUNT 3.25 10^6/ul (4.70-6.10)
[2018-11-30 10:26] LABS: WHITE BLOOD COUNT 8.6 10^3/ul (4.8-10.8)
[2018-11-30 10:48] LABS: PHOSPHORUS 4.2 mg/dl (2.5-4.9)
[2018-11-30 10:48] LABS: MAGNESIUM 2.1 mg/dl (1.7-2.5)
[2018-11-30 10:49] LABS: ANION GAP 9 (5-13); BLOOD UREA NITROGEN 21 mg/dl (7-20); CALCIUM 9.9 mg/dl (8.4-10.2); CARBON DIOXIDE 31 mmol/L (21-31); CHLORIDE 99 mmol/L (97-110); Estimated GFR 14 mL/min (>60); GLUCOSE 77 mg/dl (70-220); POTASSIUM 4.6 mmol/L (3.5-5.1); SODIUM 139 mmol/L (135-144)
[2018-11-30] MEDS: DEXTROSE 5%-0.45% NACL 1,000 ML IV ×2 (11:00→23:25)
[2018-11-30] MEDS: ONDANSETRON 4 MG INJ IV (13:18)
[2018-11-30] MEDS: CEFTRIAXONE 1 GM/50 ML (PMX) 50 ML IVPB (13:22)
[2018-11-30] MEDS ORDERED: DEXTROSE 5%-0.45% NACL 1,000 ML IV (19:00)
[2018-12-01] MEDS: DIPHENHYDRAMINE 50 MG INJ IV ×5 (04:08→23:50)
[2018-12-01] MEDS: morphine 2 MG INJ IV ×5 (04:09→23:50)
[2018-12-01] MEDS: INSULIN ASPART [NOVOLOG] 3 ML PEN SC ×5 (05:00→20:43)
[2018-12-01] MEDS: PANTOPRAZOLE (EC) 40 MG TAB PO (05:50)
[2018-12-01] MEDS ORDERED: LIDOCAINE 2% (MDV) 20 ML INJ (06:56)
[2018-12-01] MEDS: POLYMYXIN/BACITRACIN 1L IRRIG (06:56)
[2018-12-01] MEDS ORDERED: BUPIVACAINE 0.5% (SDV) 30 ML INJ (06:56)
[2018-12-01] MEDS ORDERED: LIDOCAINE 2% (SDV) 5 ML INJ (07:00)
[2018-12-01] MEDS ORDERED: PROPOFOL 200 MG INJ (07:00)
[2018-12-01] MEDS ORDERED: FENTAnyl 50 MCG/ML VIAL (07:09)
[2018-12-01] MEDS ORDERED: MIDAZOLAM 1 MG/ML 2 ML INJ (07:09)
[2018-12-01] MEDS ORDERED: ROPIVACAINE 0.2% 20 ML VIAL (07:18)
[2018-12-01] MEDS ORDERED: ONDANSETRON 4 MG INJ (08:11)
[2018-12-01] MEDS ORDERED: ONDANSETRON 4 MG INJ IV (08:30)
[2018-12-01] MEDS ORDERED: HYDROmorphONE 1 MG/5 ML IV SYRINGE IV ×2 (08:30)
[2018-12-01] MEDS ORDERED: FENTAnyl 50 MCG/ML VIAL IV ×2 (08:30)
[2018-12-01] MEDS: EPHEDrine SULFATE 50 MG/5 ML SYG IV (08:51)
[2018-12-01] MEDS: ALBUMIN HUMAN 5% 250 ML IV (08:52)
[2018-12-01] MEDS: DOCUSATE SODIUM 100 MG CAP PO ×2 (09:52→20:42)
[2018-12-01] MEDS: LORATADINE 10 MG TAB PO (09:52)
[2018-12-01] MEDS: PENTOXIFYLLINE (SR) 400 MG TAB PO ×3 (09:52→18:27)
[2018-12-01] MEDS: CALCIUM ACETATE 667 MG CAP PO ×3 (09:52→17:46)
[2018-12-01] MEDS: TRIAMCINOLONE ACET 0.1% 15 GM CR TOP ×3 (09:53→20:44)
[2018-12-01] MEDS: LIDOCAINE 2% JELLY 5 ML TOP (10:26)
[2018-12-01] MEDS: BISACODYL 10 MG SUPP PR ×2 (11:30→15:18)
[2018-12-01] MEDS: MINOXIDIL 10 MG TAB PO ×2 (15:14→22:55)
[2018-12-01] MEDS: AMLODIPINE 10 MG TAB PO (15:14)
[2018-12-01] MEDS: CEFTRIAXONE 1 GM/50 ML (PMX) 50 ML IVPB (15:14)
[2018-12-01] MEDS: LISINOPRIL 20 MG TAB PO (15:15)
[2018-12-01 15:22] LABS: ADD MAN DIFF? NO
[2018-12-01 15:25] LABS: BASOPHILS % 0.3 % (0.0-2.0); EOSINOPHILS # 0.6 10^3/ul (0.0-0.5); HEMATOCRIT 25.6 % (42.0-52.0); LYMPHOCYTES # 0.7 10^3/ul (0.8-2.9); LYMPHOCYTES % 8.7 % (15.0-51.0); MEAN CORPUSCULAR HEMOGLOBIN 28.1 pg (29.0-33.0); MEAN CORPUSCULAR HGB CONC 31.3 g/dl (32.0-37.0); MEAN CORPUSCULAR VOLUME 89.8 fl (82.0-101.0); MEAN PLATELET VOLUME 9.8 fl (7.4-10.4); MONOCYTE # 0.5 10^3/ul (0.3-0.9); MONOCYTES % 6.7 % (0.0-11.0); NEUTROPHILS % 75.5 % (39.0-77.0); PLATELET COUNT 130 10^3/UL (140-415); RED BLOOD COUNT 2.85 10^6/ul (4.70-6.10); RED CELL DISTRIBUTION WIDTH 12.9 % (11.5-14.5)
[2018-12-01 15:25] LABS: WHITE BLOOD COUNT 7.9 10^3/ul (4.8-10.8)
[2018-12-01 15:51] LABS: ANION GAP 11 (5-13); BLOOD UREA NITROGEN 15 mg/dl (7-20); CALCIUM 9.3 mg/dl (8.4-10.2); CARBON DIOXIDE 26 mmol/L (21-31); CHLORIDE 102 mmol/L (97-110); CREATININE 3.62 mg/dl (0.61-1.24); Estimated GFR 22 mL/min (>60); GLUCOSE 161 mg/dl (70-220); POTASSIUM 3.8 mmol/L (3.5-5.1); SODIUM 139 mmol/L (135-144)
[2018-12-01] MEDS: EPOETIN 4000 UNITS/1 ML INJ (ESRD) SC (17:50)
[2018-12-01] MEDS: ACETAMINOPHEN 325 MG TAB PO (20:42)
[2018-12-01] MEDS: MEROPENEM 500MG/50 ML (PMX) 50 ML IVPB (22:54)
[2018-12-01 23:10] LABS: LACTIC ACID 1.2 mmol/L (0.5-2.0)
[2018-12-02] MEDS: ACCU-CHEK XX (02:00)
[2018-12-02] MEDS: morphine 2 MG INJ IV ×5 (04:07→22:31)
[2018-12-02] MEDS: PANTOPRAZOLE (EC) 40 MG TAB PO (05:59)
[2018-12-02] MEDS: INSULIN ASPART [NOVOLOG] 3 ML PEN SC ×4 (08:00→21:00)
[2018-12-02] MEDS: AMLODIPINE 10 MG TAB PO (09:00)
[2018-12-02] MEDS: MINOXIDIL 10 MG TAB PO ×2 (09:00→21:17)
[2018-12-02] MEDS: LISINOPRIL 20 MG TAB PO (09:00)
[2018-12-02] MEDS: PENTOXIFYLLINE (SR) 400 MG TAB PO ×3 (09:28→17:56)
[2018-12-02] MEDS: CALCIUM ACETATE 667 MG CAP PO ×3 (09:28→17:56)
[2018-12-02] MEDS: LORATADINE 10 MG TAB PO (09:29)
[2018-12-02] MEDS: DOCUSATE SODIUM 100 MG CAP PO ×2 (09:30→21:17)
[2018-12-02] MEDS: TRIAMCINOLONE ACET 0.1% 15 GM CR TOP ×3 (09:41→21:00)
[2018-12-02] MEDS: ZOLPIDEM 5 MG TAB PO (22:30)
[2018-12-02] MEDS: MEROPENEM 500MG/50 ML (PMX) 50 ML IVPB (22:33)
[2018-12-03] MEDS: ACCU-CHEK XX (02:00)
[2018-12-03] MEDS: morphine 2 MG INJ IV ×5 (03:38→22:33)
[2018-12-03] MEDS: PANTOPRAZOLE (EC) 40 MG TAB PO (05:42)
[2018-12-03 07:23] LABS: ADD MAN DIFF? NO
[2018-12-03 07:32] LABS: BASOPHILS % 0.4 % (0.0-2.0); EOSINOPHILS # 0.7 10^3/ul (0.0-0.5); EOSINOPHILS % 8.6 % (0.0-7.0); HEMATOCRIT 24.5 % (42.0-52.0); HEMOGLOBIN 7.6 g/dl (14.0-18.0); LYMPHOCYTES # 0.9 10^3/ul (0.8-2.9); LYMPHOCYTES % 10.8 % (15.0-51.0); MEAN CORPUSCULAR HEMOGLOBIN 27.8 pg (29.0-33.0); MEAN CORPUSCULAR VOLUME 89.7 fl (82.0-101.0); MEAN PLATELET VOLUME 10.2 fl (7.4-10.4); MONOCYTE # 0.6 10^3/ul (0.3-0.9); MONOCYTES % 7.6 % (0.0-11.0); NEUTROPHIL # 5.8 10^3/ul (1.6-7.5); NEUTROPHILS % 71.9 % (39.0-77.0); PLATELET COUNT 121 10^3/UL (140-415); RED BLOOD COUNT 2.73 10^6/ul (4.70-6.10); RED CELL DISTRIBUTION WIDTH 13.2 % (11.5-14.5)
[2018-12-03 07:32] LABS: WHITE BLOOD COUNT 8.1 10^3/ul (4.8-10.8)
[2018-12-03 07:51] LABS: ALBUMIN 3.9 g/dl (3.3-4.9); ALBUMIN/GLOBULIN RATIO 0.65; ALKALINE PHOSPHATASE 239 IU/L (42-121); ANION GAP 12 (5-13); ASPARTATE AMINO TRANSFERASE 18 IU/L (15-46); BLOOD UREA NITROGEN 41 mg/dl (7-20); CALCIUM 9.6 mg/dl (8.4-10.2); CARBON DIOXIDE 26 mmol/L (21-31); CHLORIDE 104 mmol/L (97-110); CREATININE 7.49 mg/dl (0.61-1.24); Estimated GFR 9 mL/min (>60); GLUCOSE 111 mg/dl (70-220); POTASSIUM 5.1 mmol/L (3.5-5.1); SODIUM 142 mmol/L (135-144); TOTAL PROTEIN 9.9 g/dl (6.1-8.1)
[2018-12-03 07:52] LABS: ALANINE AMINOTRANSFERASE < 6 IU/L (13-69)
[2018-12-03] MEDS: INSULIN ASPART [NOVOLOG] 3 ML PEN SC ×4 (08:00→21:00)
[2018-12-03] MEDS: AMLODIPINE 10 MG TAB PO (08:10)
[2018-12-03] MEDS: MINOXIDIL 10 MG TAB PO ×2 (08:10→21:55)
[2018-12-03] MEDS: PENTOXIFYLLINE (SR) 400 MG TAB PO ×3 (08:10→17:37)
[2018-12-03] MEDS: LISINOPRIL 20 MG TAB PO (08:11)
[2018-12-03] MEDS: CALCIUM ACETATE 667 MG CAP PO ×3 (08:11→17:37)
[2018-12-03] MEDS: LORATADINE 10 MG TAB PO (08:11)
[2018-12-03] MEDS: DOCUSATE SODIUM 100 MG CAP PO ×2 (08:12→21:00)
[2018-12-03] MEDS: TRIAMCINOLONE ACET 0.1% 15 GM CR TOP ×3 (08:18→21:00)
[2018-12-03 08:22] LABS: VANCOMYCIN,RANDOM 11.8 ug/ml
[2018-12-03] MEDS: VANCOMYCIN 1 GM 250 ML IVPB (09:36)
[2018-12-03] MEDS: SENNA TAB PO ×2 (14:03→17:35)
[2018-12-03 14:08] LABS: HEMATOCRIT 23.7 % (42.0-52.0); HEMOGLOBIN 7.3 g/dl (14.0-18.0)
[2018-12-03] MEDS: LEVOFLOXACIN 250 MG TAB PO ×3 (15:24→17:38)
[2018-12-03] MEDS: DIPHENHYDRAMINE 50 MG INJ IV ×2 (18:05→22:33)
[2018-12-04] MEDS: ACCU-CHEK XX (02:00)
[2018-12-04] MEDS: DIPHENHYDRAMINE 50 MG INJ IV ×5 (03:27→22:56)
[2018-12-04] MEDS: morphine 2 MG INJ IV ×5 (03:27→22:57)
[2018-12-04] MEDS: INSULIN ASPART [NOVOLOG] 3 ML PEN SC ×4 (07:49→21:00)
[2018-12-04] MEDS: MINOXIDIL 10 MG TAB PO ×2 (09:00→22:55)
[2018-12-04] MEDS: LISINOPRIL 20 MG TAB PO (09:00)
[2018-12-04] MEDS: AMLODIPINE 10 MG TAB PO (09:00)
[2018-12-04] MEDS: PANTOPRAZOLE (EC) 40 MG TAB PO (09:24)
[2018-12-04] MEDS: LORATADINE 10 MG TAB PO (09:24)
[2018-12-04] MEDS: DOCUSATE SODIUM 100 MG CAP PO ×2 (09:24→22:55)
[2018-12-04] MEDS: SENNA TAB PO ×2 (09:24→22:56)
[2018-12-04] MEDS: CALCIUM ACETATE 667 MG CAP PO ×3 (09:24→18:08)
[2018-12-04] MEDS: PENTOXIFYLLINE (SR) 400 MG TAB PO ×3 (09:24→18:08)
[2018-12-04] MEDS: TRIAMCINOLONE ACET 0.1% 15 GM CR TOP ×3 (09:25→23:02)
[2018-12-04] MEDS: LIDOCAINE 2% JELLY 5 ML TOP (09:31)
[2018-12-04 10:18] LABS: IMMEDIATE SPIN CROSSMATCH 1 2
[2018-12-04 10:25] LABS: ADD MAN DIFF? NO
[2018-12-04 10:28] LABS: BASOPHILS % 0.3 % (0.0-2.0); EOSINOPHILS # 0.7 10^3/ul (0.0-0.5); EOSINOPHILS % 8.9 % (0.0-7.0); HEMATOCRIT 22.9 % (42.0-52.0); HEMOGLOBIN 7.1 g/dl (14.0-18.0); LYMPHOCYTES # 0.8 10^3/ul (0.8-2.9); MEAN CORPUSCULAR HEMOGLOBIN 27.6 pg (29.0-33.0); MEAN CORPUSCULAR VOLUME 89.1 fl (82.0-101.0); MEAN PLATELET VOLUME 10.5 fl (7.4-10.4); MONOCYTE # 0.4 10^3/ul (0.3-0.9); MONOCYTES % 5.5 % (0.0-11.0); NEUTROPHILS % 74.3 % (39.0-77.0); PLATELET COUNT 125 10^3/UL (140-415); RED BLOOD COUNT 2.57 10^6/ul (4.70-6.10); RED CELL DISTRIBUTION WIDTH 13.4 % (11.5-14.5)
[2018-12-04 10:48] LABS: ANION GAP 12 (5-13); BLOOD UREA NITROGEN 38 mg/dl (7-20); CALCIUM 9.5 mg/dl (8.4-10.2); CARBON DIOXIDE 23 mmol/L (21-31); CHLORIDE 105 mmol/L (97-110); CREATININE 6.41 mg/dl (0.61-1.24); Estimated GFR 11 mL/min (>60); GLUCOSE 126 mg/dl (70-220); POTASSIUM 4.9 mmol/L (3.5-5.1); SODIUM 140 mmol/L (135-144)
[2018-12-04 11:04] LABS: PHOSPHORUS 3.2 mg/dl (2.5-4.9)
[2018-12-04 11:04] LABS: MAGNESIUM 2.4 mg/dl (1.7-2.5)
[2018-12-04] MEDS: EPOETIN 4000 UNITS/1 ML INJ (ESRD) SC (18:07)
[2018-12-05] MEDS: ACCU-CHEK XX (02:00)
[2018-12-05] MEDS: morphine 2 MG INJ IV ×5 (03:30→22:05)
[2018-12-05] MEDS: DIPHENHYDRAMINE 50 MG INJ IV ×5 (03:30→22:05)
[2018-12-05] MEDS: INSULIN ASPART [NOVOLOG] 3 ML PEN SC ×4 (08:00→21:00)
[2018-12-05] MEDS: LEVOFLOXACIN 250 MG TAB PO ×2 (08:00→11:00)
[2018-12-05] MEDS: SENNA TAB PO ×2 (08:47→21:23)
[2018-12-05] MEDS: LISINOPRIL 20 MG TAB PO (08:47)
[2018-12-05] MEDS: PENTOXIFYLLINE (SR) 400 MG TAB PO ×3 (08:48→17:51)
[2018-12-05] MEDS: DOCUSATE SODIUM 100 MG CAP PO ×2 (08:48→21:23)
[2018-12-05] MEDS: AMLODIPINE 10 MG TAB PO (08:48)
[2018-12-05] MEDS: LORATADINE 10 MG TAB PO (08:48)
[2018-12-05] MEDS: CALCIUM ACETATE 667 MG CAP PO ×3 (08:48→17:51)
[2018-12-05] MEDS: PANTOPRAZOLE (EC) 40 MG TAB PO (08:48)
[2018-12-05] MEDS: TRIAMCINOLONE ACET 0.1% 15 GM CR TOP ×3 (08:49→21:23)
[2018-12-05] MEDS: MINOXIDIL 10 MG TAB PO ×2 (11:01→21:23)
[2018-12-06] MEDS: ACCU-CHEK XX (02:00)
[2018-12-06] MEDS: morphine 2 MG INJ IV ×3 (02:21→13:53)
[2018-12-06] MEDS: DIPHENHYDRAMINE 50 MG INJ IV ×3 (02:21→13:53)
[2018-12-06] MEDS: INSULIN ASPART [NOVOLOG] 3 ML PEN SC ×2 (08:00→13:10)
[2018-12-06] MEDS: MINOXIDIL 10 MG TAB PO (09:00)
[2018-12-06] MEDS: DOCUSATE SODIUM 100 MG CAP PO (09:00)
[2018-12-06] MEDS: SENNA TAB PO (09:00)
[2018-12-06] MEDS: AMLODIPINE 10 MG TAB PO (09:00)
[2018-12-06] MEDS: LISINOPRIL 20 MG TAB PO (09:00)
[2018-12-06] MEDS: PENTOXIFYLLINE (SR) 400 MG TAB PO ×2 (09:04→13:52)
[2018-12-06] MEDS: PANTOPRAZOLE (EC) 40 MG TAB PO (09:04)
[2018-12-06] MEDS: CALCIUM ACETATE 667 MG CAP PO ×2 (09:04→13:53)
[2018-12-06] MEDS: LORATADINE 10 MG TAB PO (09:04)
[2018-12-06] MEDS: TRIAMCINOLONE ACET 0.1% 15 GM CR TOP ×2 (09:05→13:00)
[2018-12-06] MEDS: LIDOCAINE 2% JELLY 5 ML TOP (11:44)
[2018-12-06 12:03] LABS: ADD MAN DIFF? NO
[2018-12-06 12:06] LABS: WHITE BLOOD COUNT 7.5 10^3/ul (4.8-10.8)
[2018-12-06 12:06] LABS: BASOPHILS % 0.4 % (0.0-2.0); EOSINOPHILS # 0.7 10^3/ul (0.0-0.5); EOSINOPHILS % 9.4 % (0.0-7.0); HEMOGLOBIN 7.7 g/dl (14.0-18.0); LYMPHOCYTES # 0.9 10^3/ul (0.8-2.9); LYMPHOCYTES % 12.3 % (15.0-51.0); MEAN CORPUSCULAR HGB CONC 32.1 g/dl (32.0-37.0); MEAN CORPUSCULAR VOLUME 87.3 fl (82.0-101.0); MEAN PLATELET VOLUME 10.3 fl (7.4-10.4); MONOCYTE # 0.6 10^3/ul (0.3-0.9); MONOCYTES % 8.3 % (0.0-11.0); NEUTROPHIL # 5.1 10^3/ul (1.6-7.5); NEUTROPHILS % 68.7 % (39.0-77.0); PLATELET COUNT 160 10^3/UL (140-415); RED BLOOD COUNT 2.75 10^6/ul (4.70-6.10); RED CELL DISTRIBUTION WIDTH 13.3 % (11.5-14.5)
[2018-12-06 12:26] LABS: ANION GAP 14 (5-13); BLOOD UREA NITROGEN 55 mg/dl (7-20); CALCIUM 9.8 mg/dl (8.4-10.2); CARBON DIOXIDE 24 mmol/L (21-31); CHLORIDE 101 mmol/L (97-110); CREATININE 8.68 mg/dl (0.61-1.24); Estimated GFR 8 mL/min (>60); GLUCOSE 98 mg/dl (70-220); POTASSIUM 4.8 mmol/L (3.5-5.1); SODIUM 139 mmol/L (135-144)
[2018-12-06 12:27] LABS: PHOSPHORUS 4.9 mg/dl (2.5-4.9)
[2018-12-06 12:27] LABS: MAGNESIUM 2.4 mg/dl (1.7-2.5)
== END 2018-12-06 16:20 | disposition home health service (06) | DRG 270 ==
LOC: E/R 14:02 → 2NE 22:42
PROVIDERS: Internal Medicine Nephrology
PROC: 04CK3ZZ Extirpation of Matter from Right Femoral Artery, Percutaneous Approach (ICD-10-PCS; principal; 2018-11-28 07:14)
PROC: 04CM3ZZ Extirpation of Matter from Right Popliteal Artery, Percutaneous Approach (ICD-10-PCS; 2018-11-28 07:14)
PROC: 047K3ZZ Dilation of Right Femoral Artery, Percutaneous Approach (ICD-10-PCS; 2018-11-28 07:14)
PROC: 047M3ZZ Dilation of Right Popliteal Artery, Percutaneous Approach (ICD-10-PCS; 2018-11-28 07:14)
PROC: 0Y6T0Z0 Detachment at Right 3rd Toe, Complete, Open Approach (ICD-10-PCS; 2018-11-28 07:14)
PROC: B41DYZZ Fluoroscopy of Aorta and Bilateral Lower Extremity Arteries using Other Contrast (ICD-10-PCS; 2018-11-28 07:14)
PROC: 2W1SX6Z Compression of Right Foot using Pressure Dressing (ICD-10-PCS; 2018-11-28 07:14)
PROC: 30233N1 Transfusion of Nonautologous Red Blood Cells into Peripheral Vein, Percutaneous Approach (ICD-10-PCS; 2018-11-28 07:14)
PROC: 5A1D70Z Performance of Urinary Filtration, Intermittent, Less than 6 Hours Per Day (ICD-10-PCS; 2018-11-28 07:14)
PROC: 5A1D70Z Performance of Urinary Filtration, Intermittent, Less than 6 Hours Per Day (ICD-10-PCS; 2018-11-28 07:14)
PROC: 5A1D70Z Performance of Urinary Filtration, Intermittent, Less than 6 Hours Per Day (ICD-10-PCS; 2018-11-28 07:14)
PROC: 5A1D70Z Performance of Urinary Filtration, Intermittent, Less than 6 Hours Per Day (ICD-10-PCS; 2018-11-28 07:14)
PROC: 5A1D70Z Performance of Urinary Filtration, Intermittent, Less than 6 Hours Per Day (ICD-10-PCS; 2018-11-28 07:14)
PROC: 5A1D70Z Performance of Urinary Filtration, Intermittent, Less than 6 Hours Per Day (ICD-10-PCS; 2018-11-28 07:14)
PROC: 5A1D70Z Performance of Urinary Filtration, Intermittent, Less than 6 Hours Per Day (ICD-10-PCS; 2018-11-28 07:14)
DX: E11.52 Type 2 diabetes mellitus with diabetic peripheral angiopathy with gangrene (principal); N18.6 End stage renal disease; I13.2 Hypertensive heart and chronic kidney disease with heart failure and with stage 5 chronic kidney disease, or end stage renal disease; M00.9 Pyogenic arthritis, unspecified; M86.8X7 Other osteomyelitis, ankle and foot; L03.115 Cellulitis of right lower limb; I50.32 Chronic diastolic (congestive) heart failure; Z93.0 Tracheostomy status; E11.22 Type 2 diabetes mellitus with diabetic chronic kidney disease; E11.40 Type 2 diabetes mellitus with diabetic neuropathy, unspecified; E11.69 Type 2 diabetes mellitus with other specified complication; E11.621 Type 2 diabetes mellitus with foot ulcer; L97.519 Non-pressure chronic ulcer of other part of right foot with unspecified severity; I25.10 Atherosclerotic heart disease of native coronary artery without angina pectoris; D63.1 Anemia in chronic kidney disease; D63.8 Anemia in other chronic diseases classified elsewhere; Z79.4 Long term (current) use of insulin; I25.2 Old myocardial infarction; Z99.2 Dependence on renal dialysis; Z89.421 Acquired absence of other right toe(s); Z89.512 Acquired absence of left leg below knee; Z95.5 Presence of coronary angioplasty implant and graft; Z87.891 Personal history of nicotine dependence
CPT/HCPCS: 32550; 36415; 36430; 71045; 73630; 75630; 75635; 80048; 80053; 80202; 82962; 83036; 83605; 83735; 84100; 85014; 85018; 85025; 85610; 85730; 86644; 86706; 86850; 86900; 86901; 86920; 87040; 87081; 87340; 88305; 88311; 90935; 93005; 93926; 96365; 96366; 96375; 99285-25

== ENCOUNTER 2019-01-21 00:02 | Inpatient (IN) | payer OTHER ==
[2019-01-21] MEDS: morphine 2 MG INJ IV ×4 (01:19→20:24)
[2019-01-21] MEDS ORDERED: ALBUTEROL 0.083% (NEB) 2.5 MG/3 ML AMP HHN (01:30)
[2019-01-21] MEDS ORDERED: ACETAMINOPHEN 325 MG TAB PO (01:30)
[2019-01-21] MEDS ORDERED: DOCUSATE SODIUM 100 MG CAP PO (01:30)
[2019-01-21] MEDS: ACCU-CHEK XX (02:00)
[2019-01-21] MEDS: PANTOPRAZOLE 40 MG INJ IV (05:22)
[2019-01-21] MEDS ORDERED: DEXTROSE 50% 50 ML SYRINGE IV (05:30)
[2019-01-21] MEDS ORDERED: GLUCAGON 1 MG INJ IM (05:30)
[2019-01-21] MEDS ORDERED: GLUCOSE GEL 15 GRAM TUBE BUCCAL (05:30)
[2019-01-21] MEDS ORDERED: GLUCOSE GEL 15 GRAM TUBE PO ×2 (05:30)
[2019-01-21] MEDS: INSULIN ASPART [NOVOLOG] 3 ML PEN SC ×4 (08:00→20:20)
[2019-01-21] MEDS: CEFTRIAXONE 1 GM/NS 50 ML IVPB (08:40)
[2019-01-21] MEDS ORDERED: CEFTRIAXONE 1 GM INJ IVPB (09:00)
[2019-01-21] MEDS ORDERED: VANCOMYCIN IV PER PHARMACY XX (15:00)
[2019-01-21] MEDS: VANCOMYCIN HCL 1.75 GM in SOD CHLORIDE 0.9% 500 ML IVPB (16:48)
[2019-01-21] MEDS: PENTOXIFYLLINE (SR) 400 MG TAB PO (18:12)
[2019-01-21] MEDS: ONDANSETRON 4 MG INJ IV (23:03)
[2019-01-22] MEDS: morphine 2 MG INJ IV ×3 (00:50→09:44)
[2019-01-22] MEDS: ACCU-CHEK XX (02:00)
[2019-01-22] MEDS: PANTOPRAZOLE (EC) 40 MG TAB PO (05:33)
[2019-01-22] MEDS: INSULIN ASPART [NOVOLOG] 3 ML PEN SC ×4 (08:00→20:45)
[2019-01-22] MEDS: PENTOXIFYLLINE (SR) 400 MG TAB PO ×3 (09:03→17:37)
[2019-01-22] MEDS: CEFTRIAXONE 1 GM/NS 50 ML IVPB (09:04)
[2019-01-22 11:08] LABS: ADD MAN DIFF? NO
[2019-01-22 11:11] LABS: ABNORMAL IP MESSAGE 1; BASOPHILS % 0.2 % (0.0-2.0); EOSINOPHILS # 0.4 10^3/ul (0.0-0.5); EOSINOPHILS % 4.1 % (0.0-7.0); HEMATOCRIT 23.2 % (42.0-52.0); HEMOGLOBIN 7.1 g/dl (14.0-18.0); LYMPHOCYTES # 0.6 10^3/ul (0.8-2.9); LYMPHOCYTES % 6.6 % (15.0-51.0); MEAN CORPUSCULAR HEMOGLOBIN 26.7 pg (29.0-33.0); MEAN CORPUSCULAR HGB CONC 30.6 g/dl (32.0-37.0); MEAN CORPUSCULAR VOLUME 87.2 fl (82.0-101.0); MEAN PLATELET VOLUME 10.3 fl (7.4-10.4); MONOCYTE # 0.5 10^3/ul (0.3-0.9); MONOCYTES % 5.9 % (0.0-11.0); NEUTROPHIL # 7.2 10^3/ul (1.6-7.5); NEUTROPHILS % 82.7 % (39.0-77.0); PLATELET COUNT 156 10^3/UL (140-415); POSITIVE DIFF @See below; RED BLOOD COUNT 2.66 10^6/ul (4.70-6.10); RED CELL DISTRIBUTION WIDTH 13.2 % (11.5-14.5)
[2019-01-22 11:11] LABS: WHITE BLOOD COUNT 8.7 10^3/ul (4.8-10.8)
[2019-01-22 11:33] LABS: ANION GAP 15 (5-13); BLOOD UREA NITROGEN 51 mg/dl (7-20); CALCIUM 9.1 mg/dl (8.4-10.2); CARBON DIOXIDE 27 mmol/L (21-31); CHLORIDE 103 mmol/L (97-110); CREATININE 8.33 mg/dl (0.61-1.24); Estimated GFR 8 mL/min (>60); GLUCOSE 77 mg/dl (70-220); POTASSIUM 3.2 mmol/L (3.5-5.1); SODIUM 145 mmol/L (135-144)
[2019-01-22] MEDS: LIDOCAINE 2% JELLY 5 ML TOP (12:25)
[2019-01-22 12:26] LABS: HEPATITIS B SURFACE ANTIGEN NEGATIVE (NEGATIVE)
[2019-01-22 12:44] LABS: HEPATITIS B SURFACE ANTIBODY NEGATIVE (NEGATIVE)
[2019-01-22] MEDS ORDERED: COLLAGENASE 5 GM (UD JAR) TOP (16:55)
[2019-01-22] MEDS: EPOETIN ALFA-EPBX (ESRD) 3,000 UNIT/ML VIAL SC (17:17)
[2019-01-22] MEDS: COLLAGENASE 5 GM (UD JAR) TOP (17:37)
[2019-01-23] MEDS: ZOLPIDEM 5 MG TAB PO (00:47)
[2019-01-23] MEDS: ACCU-CHEK XX (02:00)
[2019-01-23] MEDS: PENTOXIFYLLINE (SR) 400 MG TAB PO ×3 (08:34→17:34)
[2019-01-23] MEDS: PANTOPRAZOLE (EC) 40 MG TAB PO (08:34)
[2019-01-23] MEDS: INSULIN ASPART [NOVOLOG] 3 ML PEN SC ×4 (08:35→21:00)
[2019-01-23] MEDS: COLLAGENASE 5 GM (UD JAR) TOP (08:35)
[2019-01-23] MEDS: CEFTRIAXONE 1 GM/NS 50 ML IVPB (08:35)
[2019-01-23 09:08] LABS: ADD MAN DIFF? NO
[2019-01-23 09:14] LABS: ABNORMAL IP MESSAGE 1; BASOPHILS % 0.2 % (0.0-2.0); EOSINOPHILS # 0.3 10^3/ul (0.0-0.5); EOSINOPHILS % 3.9 % (0.0-7.0); HEMATOCRIT 24.7 % (42.0-52.0); HEMOGLOBIN 7.6 g/dl (14.0-18.0); LYMPHOCYTES # 0.5 10^3/ul (0.8-2.9); LYMPHOCYTES % 6.1 % (15.0-51.0); MEAN CORPUSCULAR HEMOGLOBIN 26.8 pg (29.0-33.0); MEAN CORPUSCULAR HGB CONC 30.8 g/dl (32.0-37.0); MEAN PLATELET VOLUME 10.5 fl (7.4-10.4); MONOCYTE # 0.4 10^3/ul (0.3-0.9); MONOCYTES % 5.2 % (0.0-11.0); NEUTROPHIL # 7.2 10^3/ul (1.6-7.5); PLATELET COUNT 185 10^3/UL (140-415); POSITIVE DIFF @See below; RED BLOOD COUNT 2.84 10^6/ul (4.70-6.10); RED CELL DISTRIBUTION WIDTH 13.1 % (11.5-14.5)
[2019-01-23 09:14] LABS: WHITE BLOOD COUNT 8.5 10^3/ul (4.8-10.8)
[2019-01-23] MEDS: morphine 2 MG INJ IV ×3 (09:28→21:48)
[2019-01-23 09:33] LABS: ANION GAP 9 (5-13); BLOOD UREA NITROGEN 30 mg/dl (7-20); CARBON DIOXIDE 31 mmol/L (21-31); CHLORIDE 104 mmol/L (97-110); CREATININE 5.74 mg/dl (0.61-1.24); Estimated GFR 13 mL/min (>60); GLUCOSE 120 mg/dl (70-220); POTASSIUM 3.6 mmol/L (3.5-5.1); SODIUM 144 mmol/L (135-144)
[2019-01-23 09:35] LABS: VANCOMYCIN,RANDOM 22.9 ug/ml
[2019-01-24] MEDS: ACCU-CHEK XX (02:00)
[2019-01-24] MEDS: PANTOPRAZOLE (EC) 40 MG TAB PO (06:33)
[2019-01-24] MEDS: INSULIN ASPART [NOVOLOG] 3 ML PEN SC ×4 (08:00→20:35)
[2019-01-24] MEDS: CEFTRIAXONE 1 GM/NS 50 ML IVPB (08:17)
[2019-01-24] MEDS: PENTOXIFYLLINE (SR) 400 MG TAB PO ×3 (08:17→16:58)
[2019-01-24] MEDS: DIPHENHYDRAMINE 25 MG CAP PO (08:56)
[2019-01-24] MEDS: morphine 2 MG INJ IV ×3 (08:57→22:01)
[2019-01-24] MEDS: COLLAGENASE 5 GM (UD JAR) TOP (08:57)
[2019-01-24] MEDS: VANCOMYCIN 1 GM 250 ML IVPB (10:12)
[2019-01-24] MEDS: LIDOCAINE 1% (MDV) 20 ML INJ SC (12:06)
[2019-01-24] MEDS: EPOETIN ALFA-EPBX (ESRD) 3,000 UNIT/ML VIAL SC (17:07)
[2019-01-24] MEDS: DEXTROSE 50% 50 ML SYRINGE IV (17:12)
[2019-01-25] MEDS: ACCU-CHEK XX (02:00)
[2019-01-25] MEDS: morphine 2 MG INJ IV ×3 (02:48→11:05)
[2019-01-25] MEDS: PANTOPRAZOLE (EC) 40 MG TAB PO (06:00)
[2019-01-25] MEDS: INSULIN ASPART [NOVOLOG] 3 ML PEN SC ×4 (08:00→20:37)
[2019-01-25] MEDS: CEFTRIAXONE 1 GM/NS 50 ML IVPB (08:31)
[2019-01-25] MEDS: PENTOXIFYLLINE (SR) 400 MG TAB PO ×4 (08:31→17:48)
[2019-01-25] MEDS: COLLAGENASE 5 GM (UD JAR) TOP (08:43)
[2019-01-25 10:42] LABS: ADD MAN DIFF? NO
[2019-01-25 10:44] LABS: WHITE BLOOD COUNT 7.6 10^3/ul (4.8-10.8)
[2019-01-25 10:44] LABS: BASOPHILS % 0.1 % (0.0-2.0); EOSINOPHILS # 0.3 10^3/ul (0.0-0.5); EOSINOPHILS % 4.1 % (0.0-7.0); HEMATOCRIT 26.4 % (42.0-52.0); HEMOGLOBIN 8.2 g/dl (14.0-18.0); LYMPHOCYTES # 0.7 10^3/ul (0.8-2.9); LYMPHOCYTES % 8.9 % (15.0-51.0); MEAN CORPUSCULAR HEMOGLOBIN 26.5 pg (29.0-33.0); MEAN CORPUSCULAR HGB CONC 31.1 g/dl (32.0-37.0); MEAN CORPUSCULAR VOLUME 85.4 fl (82.0-101.0); MEAN PLATELET VOLUME 10.8 fl (7.4-10.4); MONOCYTE # 0.4 10^3/ul (0.3-0.9); MONOCYTES % 4.7 % (0.0-11.0); NEUTROPHIL # 6.2 10^3/ul (1.6-7.5); NEUTROPHILS % 81.7 % (39.0-77.0); PLATELET COUNT 165 10^3/UL (140-415); POSITIVE DIFF @See below; RED BLOOD COUNT 3.09 10^6/ul (4.70-6.10); RED CELL DISTRIBUTION WIDTH 13.1 % (11.5-14.5)
[2019-01-25] MEDS: DEXTROSE 5%-0.45% NACL 1,000 ML IV (11:06)
[2019-01-25] MEDS: ONDANSETRON 4 MG INJ IV (11:19)
[2019-01-25] MEDS ORDERED: BUPIVACAINE 0.5% (SDV) 30 ML INJ (15:14)
[2019-01-25] MEDS ORDERED: MIDAZOLAM 1 MG/ML 2 ML INJ (15:24)
[2019-01-25] MEDS ORDERED: LIDOCAINE 2% (SDV) 5 ML INJ (15:24)
[2019-01-25] MEDS ORDERED: PROPOFOL 0 ML (15:24)
[2019-01-25] MEDS ORDERED: FENTAnyl 50 MCG/ML VIAL (15:25)
[2019-01-25] MEDS ORDERED: LUBIPROSTONE 8 MCG CAPSULE (19:53)
[2019-01-25] MEDS: morphine 2 MG INJ IM (20:34)
[2019-01-25] MEDS: LUBIPROSTONE 8 MCG CAPSULE PO (20:39)
[2019-01-25] MEDS: ZOLPIDEM 5 MG TAB PO (21:40)
[2019-01-26] MEDS: ACCU-CHEK XX (01:47)
[2019-01-26] MEDS: PANTOPRAZOLE (EC) 40 MG TAB PO (06:19)
[2019-01-26] MEDS: morphine 2 MG INJ IM ×3 (06:31→21:32)
[2019-01-26] MEDS ORDERED: LIDOCAINE 1% (MDV) 20 ML INJ SC (07:00)
[2019-01-26] MEDS ORDERED: LIDOCAINE 1% (MDV) 20 ML INJ (07:30)
[2019-01-26] MEDS: PENTOXIFYLLINE (SR) 400 MG TAB PO ×3 (07:35→17:32)
[2019-01-26] MEDS: INSULIN ASPART [NOVOLOG] 3 ML PEN SC ×4 (07:46→21:00)
[2019-01-26] MEDS: ONDANSETRON 4 MG INJ IV (08:05)
[2019-01-26] MEDS ORDERED: ONDANSETRON 4 MG TAB PO (08:30)
[2019-01-26] MEDS: LIDOCAINE 1% (MDV) 20 ML INJ SC (09:57)
[2019-01-26] MEDS: DEXTROSE 5%-0.45% NACL 1,000 ML IV (10:00)
[2019-01-26 10:13] LABS: ADD MAN DIFF? NO
[2019-01-26 10:16] LABS: BASOPHILS % 0.3 % (0.0-2.0); EOSINOPHILS # 0.3 10^3/ul (0.0-0.5); HEMOGLOBIN 8.5 g/dl (14.0-18.0); LYMPHOCYTES # 0.8 10^3/ul (0.8-2.9); LYMPHOCYTES % 9.7 % (15.0-51.0); MEAN CORPUSCULAR HEMOGLOBIN 26.9 pg (29.0-33.0); MEAN CORPUSCULAR HGB CONC 31.5 g/dl (32.0-37.0); MEAN CORPUSCULAR VOLUME 85.4 fl (82.0-101.0); MEAN PLATELET VOLUME 9.9 fl (7.4-10.4); MONOCYTE # 0.4 10^3/ul (0.3-0.9); MONOCYTES % 5.7 % (0.0-11.0); NEUTROPHIL # 6.2 10^3/ul (1.6-7.5); NEUTROPHILS % 79.8 % (39.0-77.0); PLATELET COUNT 180 10^3/UL (140-415); RED BLOOD COUNT 3.16 10^6/ul (4.70-6.10)
[2019-01-26 10:16] LABS: WHITE BLOOD COUNT 7.8 10^3/ul (4.8-10.8)
[2019-01-26 10:40] LABS: ALBUMIN 3.9 g/dl (3.3-4.9); ALBUMIN/GLOBULIN RATIO 0.59; ALKALINE PHOSPHATASE 400 IU/L (42-121); ANION GAP 10 (5-13); ASPARTATE AMINO TRANSFERASE 15 IU/L (15-46); BLOOD UREA NITROGEN 16 mg/dl (7-20); CALCIUM 9.4 mg/dl (8.4-10.2); CARBON DIOXIDE 30 mmol/L (21-31); CHLORIDE 104 mmol/L (97-110); Estimated GFR 23 mL/min (>60); GLUCOSE 92 mg/dl (70-220); POTASSIUM 3.9 mmol/L (3.5-5.1); SODIUM 144 mmol/L (135-144); TOTAL PROTEIN 10.5 g/dl (6.1-8.1)
[2019-01-26 10:41] LABS: ALANINE AMINOTRANSFERASE < 6 IU/L (13-69)
[2019-01-26] MEDS: LUBIPROSTONE 8 MCG CAPSULE PO ×2 (11:54→21:31)
[2019-01-26] MEDS: COLLAGENASE 5 GM (UD JAR) TOP (11:56)
[2019-01-26] MEDS: AMOXICILLIN/CLAV 500 MG TAB PO (12:30)
[2019-01-26] MEDS: EPOETIN ALFA-EPBX (ESRD) 3,000 UNIT/ML VIAL SC (17:33)
[2019-01-27] MEDS: ACCU-CHEK XX ×2 (01:40→21:05)
[2019-01-27] MEDS: morphine 2 MG INJ IM ×2 (02:17→15:35)
[2019-01-27] MEDS: PANTOPRAZOLE (EC) 40 MG TAB PO (06:16)
[2019-01-27] MEDS: INSULIN ASPART [NOVOLOG] 3 ML PEN SC ×4 (08:00→21:00)
[2019-01-27] MEDS: AMOXICILLIN/CLAV 500 MG TAB PO (09:19)
[2019-01-27] MEDS: PENTOXIFYLLINE (SR) 400 MG TAB PO ×3 (09:20→17:58)
[2019-01-27] MEDS: COLLAGENASE 5 GM (UD JAR) TOP (09:20)
[2019-01-27] MEDS: DEXTROSE 5%-0.45% NACL 1,000 ML IV (09:24)
[2019-01-27] MEDS: LUBIPROSTONE 8 MCG CAPSULE PO ×2 (12:08→21:00)
[2019-01-27 23:24] LABS: ADD MAN DIFF? NO
[2019-01-27 23:26] LABS: WHITE BLOOD COUNT 8.4 10^3/ul (4.8-10.8)
[2019-01-27 23:26] LABS: BASOPHILS % 0.2 % (0.0-2.0); EOSINOPHILS # 0.4 10^3/ul (0.0-0.5); EOSINOPHILS % 4.3 % (0.0-7.0); HEMATOCRIT 27.2 % (42.0-52.0); HEMOGLOBIN 8.3 g/dl (14.0-18.0); LYMPHOCYTES # 1.1 10^3/ul (0.8-2.9); MEAN CORPUSCULAR HEMOGLOBIN 26.4 pg (29.0-33.0); MEAN CORPUSCULAR HGB CONC 30.5 g/dl (32.0-37.0); MEAN CORPUSCULAR VOLUME 86.6 fl (82.0-101.0); MEAN PLATELET VOLUME 10.1 fl (7.4-10.4); MONOCYTE # 0.6 10^3/ul (0.3-0.9); MONOCYTES % 6.7 % (0.0-11.0); NEUTROPHIL # 6.3 10^3/ul (1.6-7.5); NEUTROPHILS % 75.2 % (39.0-77.0); PLATELET COUNT 175 10^3/UL (140-415); RED BLOOD COUNT 3.14 10^6/ul (4.70-6.10); RED CELL DISTRIBUTION WIDTH 13.1 % (11.5-14.5)
[2019-01-27 23:44] LABS: ANION GAP 12 (5-13); BLOOD UREA NITROGEN 35 mg/dl (7-20); CARBON DIOXIDE 27 mmol/L (21-31); CHLORIDE 104 mmol/L (97-110); Estimated GFR 12 mL/min (>60); GLUCOSE 87 mg/dl (70-220); POTASSIUM 4.4 mmol/L (3.5-5.1); SODIUM 143 mmol/L (135-144)
[2019-01-28] MEDS: morphine 2 MG INJ IM (01:03)
[2019-01-28] MEDS: PANTOPRAZOLE (EC) 40 MG TAB PO ×2 (05:03→05:07)
[2019-01-28] MEDS: PENTOXIFYLLINE (SR) 400 MG TAB PO ×3 (07:35→17:17)
[2019-01-28] MEDS: INSULIN ASPART [NOVOLOG] 3 ML PEN SC ×4 (08:00→20:50)
[2019-01-28] MEDS: COLLAGENASE 5 GM (UD JAR) TOP (09:00)
[2019-01-28] MEDS: LUBIPROSTONE 8 MCG CAPSULE PO ×2 (09:00→20:51)
[2019-01-28] MEDS: AMOXICILLIN/CLAV 500 MG TAB PO (09:00)
[2019-01-28] MEDS: DEXTROSE 5%-0.45% NACL 1,000 ML IV (09:50)
[2019-01-28] MEDS: LIDOCAINE 2% JELLY 5 ML TOP (18:10)
[2019-01-28] MEDS: morphine 2 MG INJ IV (18:11)
[2019-01-28] MEDS: ACCU-CHEK XX (20:51)
[2019-01-29] MEDS: morphine 2 MG INJ IM (02:31)
[2019-01-29] MEDS: PANTOPRAZOLE (EC) 40 MG TAB PO (05:51)
[2019-01-29] MEDS: INSULIN ASPART [NOVOLOG] 3 ML PEN SC ×4 (08:00→21:00)
[2019-01-29] MEDS: AMOXICILLIN/CLAV 500 MG TAB PO (08:36)
[2019-01-29] MEDS: LUBIPROSTONE 8 MCG CAPSULE PO (08:37)
[2019-01-29] MEDS: PENTOXIFYLLINE (SR) 400 MG TAB PO ×3 (08:37→18:50)
[2019-01-29] MEDS: COLLAGENASE 5 GM (UD JAR) TOP (09:00)
[2019-01-29] MEDS ORDERED: LUBIPROSTONE 8 MCG CAPSULE PO (16:30)
[2019-01-29] MEDS: EPOETIN ALFA-EPBX (ESRD) 3,000 UNIT/ML VIAL SC (19:03)
[2019-01-29 20:10] LABS: VANCOMYCIN,RANDOM 12.3 ug/ml
[2019-01-29] MEDS: ONDANSETRON 4 MG INJ IV (22:27)
[2019-01-29] MEDS: VANCOMYCIN 1 GM 250 ML IVPB (22:27)
[2019-01-29] MEDS: morphine 2 MG INJ IV (22:28)
[2019-01-30] MEDS: ACCU-CHEK XX (02:00)
[2019-01-30] MEDS: PANTOPRAZOLE (EC) 40 MG TAB PO (06:06)
[2019-01-30] MEDS: morphine 2 MG INJ IV ×3 (06:07→19:25)
[2019-01-30] MEDS: INSULIN ASPART [NOVOLOG] 3 ML PEN SC ×4 (08:00→21:00)
[2019-01-30] MEDS: COLLAGENASE 5 GM (UD JAR) TOP (09:57)
[2019-01-30] MEDS: PENTOXIFYLLINE (SR) 400 MG TAB PO ×3 (09:57→17:17)
[2019-01-30] MEDS: AMOXICILLIN/CLAV 500 MG TAB PO (09:58)
[2019-01-30] MEDS: LISINOPRIL 20 MG TAB PO (17:18)
[2019-01-31] MEDS: ACCU-CHEK XX (01:54)
[2019-01-31] MEDS: TRIAMCINOLONE ACET 0.1% 15 GM CR TOP (03:53)
[2019-01-31] MEDS: morphine 2 MG INJ IV ×5 (03:53→22:11)
[2019-01-31] MEDS: PANTOPRAZOLE (EC) 40 MG TAB PO ×2 (05:59→06:00)
[2019-01-31 07:03] LABS: ANION GAP 12 (5-13); BLOOD UREA NITROGEN 56 mg/dl (7-20); CALCIUM 9.2 mg/dl (8.4-10.2); CARBON DIOXIDE 25 mmol/L (21-31); CHLORIDE 107 mmol/L (97-110); CREATININE 6.42 mg/dl (0.61-1.24); Estimated GFR 11 mL/min (>60); GLUCOSE 78 mg/dl (70-220); POTASSIUM 4.7 mmol/L (3.5-5.1); SODIUM 144 mmol/L (135-144)
[2019-01-31] MEDS: INSULIN ASPART [NOVOLOG] 3 ML PEN SC ×4 (08:00→20:24)
[2019-01-31] MEDS: AMOXICILLIN/CLAV 500 MG TAB PO (08:18)
[2019-01-31] MEDS: PENTOXIFYLLINE (SR) 400 MG TAB PO ×3 (08:19→17:35)
[2019-01-31 08:48] LABS: HEMOGLOBIN 7.5 g/dl (14.0-18.0)
[2019-01-31] MEDS: LISINOPRIL 20 MG TAB PO (11:11)
[2019-01-31] MEDS: COLLAGENASE 5 GM (UD JAR) TOP (11:12)
[2019-01-31] MEDS: LIDOCAINE 2% (MDV) 20 ML INJ INJ (15:45)
[2019-01-31 16:27] LABS: IMMEDIATE SPIN CROSSMATCH 1 2
[2019-01-31] MEDS: EPOETIN ALFA-EPBX (ESRD) 3,000 UNIT/ML VIAL SC (20:26)
[2019-01-31] MEDS: MINOXIDIL 10 MG TAB PO (22:09)
[2019-02-01] MEDS: INSULIN ASPART [NOVOLOG] 3 ML PEN SC ×6 (01:00→21:00)
[2019-02-01] MEDS: morphine 2 MG INJ IV ×4 (02:16→20:21)
[2019-02-01] MEDS: ACCU-CHEK XX (02:19)
[2019-02-01 04:54] LABS: ADD MAN DIFF? NO
[2019-02-01 05:02] LABS: BASOPHILS % 0.3 % (0.0-2.0); EOSINOPHILS # 0.4 10^3/ul (0.0-0.5); EOSINOPHILS % 5.7 % (0.0-7.0); HEMATOCRIT 25.8 % (42.0-52.0); HEMOGLOBIN 8.1 g/dl (14.0-18.0); LYMPHOCYTES % 14.5 % (15.0-51.0); MEAN CORPUSCULAR HEMOGLOBIN 26.6 pg (29.0-33.0); MEAN CORPUSCULAR HGB CONC 31.4 g/dl (32.0-37.0); MEAN CORPUSCULAR VOLUME 84.6 fl (82.0-101.0); MEAN PLATELET VOLUME 10.2 fl (7.4-10.4); MONOCYTE # 0.3 10^3/ul (0.3-0.9); MONOCYTES % 4.5 % (0.0-11.0); NEUTROPHIL # 4.9 10^3/ul (1.6-7.5); NEUTROPHILS % 73.9 % (39.0-77.0); PLATELET COUNT 115 10^3/UL (140-415); RED BLOOD COUNT 3.05 10^6/ul (4.70-6.10)
[2019-02-01 05:02] LABS: WHITE BLOOD COUNT 6.6 10^3/ul (4.8-10.8)
[2019-02-01] MEDS: PANTOPRAZOLE (EC) 40 MG TAB PO (06:00)
[2019-02-01] MEDS ORDERED: CEFAZOLIN 1 GM INJ (07:00)
[2019-02-01] MEDS: PENTOXIFYLLINE (SR) 400 MG TAB PO ×3 (07:35→17:09)
[2019-02-01] MEDS: DEXTROSE 5%-0.9% NACL 1,000 ML IV (10:05)
[2019-02-01] MEDS: LISINOPRIL 20 MG TAB PO (10:06)
[2019-02-01] MEDS: MINOXIDIL 10 MG TAB PO ×2 (10:06→20:21)
[2019-02-01] MEDS: AMOXICILLIN/CLAV 500 MG TAB PO (10:06)
[2019-02-01] MEDS: COLLAGENASE 5 GM (UD JAR) TOP (10:08)
[2019-02-01] MEDS ORDERED: LIDOCAINE 2% (SDV) 5 ML INJ (15:57)
[2019-02-01] MEDS ORDERED: EPHEDrine 25 MG/5 ML SYG ×2 (15:57→17:56)
[2019-02-01] MEDS ORDERED: ROCURONIUM 50 MG INJ (15:57)
[2019-02-01] MEDS ORDERED: PROPOFOL 20 ML (15:57)
[2019-02-01] MEDS ORDERED: FENTAnyl 50 MCG/ML VIAL (15:58)
[2019-02-01 16:10] LABS: INR 1.19; PROTIME 15.2 Sec (11.9-14.9); PT RATIO 1.2
[2019-02-01 16:12] LABS: PARTIAL THROMBOPLASTIN TIME 68.5 Sec (23.0-35.0)
[2019-02-01] MEDS: POLYMYXIN/BACITRACIN 1L IRRIG IRR ×2 (17:03→17:47)
[2019-02-01] MEDS: BUPIVACAINE 0.5% (SDV) 30 ML INJ (17:47)
[2019-02-01] MEDS ORDERED: ONDANSETRON 4 MG INJ IV (18:00)
[2019-02-01] MEDS ORDERED: LABETALOL HCL 20MG INJ IV (18:00)
[2019-02-01] MEDS ORDERED: hydrALAzine 20 MG INJ IV (18:00)
[2019-02-01] MEDS ORDERED: ALBUTEROL 0.083% (NEB) 2.5 MG/3 ML AMP HHN (18:00)
[2019-02-01] MEDS ORDERED: FENTAnyl 50 MCG/ML VIAL IV ×3 (18:00)
[2019-02-01] MEDS ORDERED: KETOROLAC 30 MG INJ IV (18:00)
[2019-02-01] MEDS ORDERED: MEPERIDINE 25 MG INJ IV (18:00)
[2019-02-01] MEDS ORDERED: DIPHENHYDRAMINE 50 MG INJ IV (18:00)
[2019-02-01] MEDS: EPHEDrine 25 MG/5 ML SYG IV ×2 (18:02→18:11)
[2019-02-01] MEDS ORDERED: ALBUMIN HUMAN 5% 250 ML (18:22)
[2019-02-01] MEDS: ALBUMIN HUMAN 5% 250 ML IV (18:47)
[2019-02-02] MEDS: ACCU-CHEK XX (02:00)
[2019-02-02] MEDS: morphine 2 MG INJ IV ×4 (02:13→21:05)
[2019-02-02] MEDS: VANCOMYCIN 1 GM 250 ML IVPB (05:31)
[2019-02-02] MEDS: PANTOPRAZOLE (EC) 40 MG TAB PO (06:00)
[2019-02-02 06:01] LABS: ADD MAN DIFF? NO
[2019-02-02 06:13] LABS: ABNORMAL IP MESSAGE 1; BASOPHILS % 0.3 % (0.0-2.0); EOSINOPHILS # 0.2 10^3/ul (0.0-0.5); EOSINOPHILS % 3.6 % (0.0-7.0); HEMATOCRIT 24.8 % (42.0-52.0); HEMOGLOBIN 7.7 g/dl (14.0-18.0); LYMPHOCYTES # 0.7 10^3/ul (0.8-2.9); LYMPHOCYTES % 11.1 % (15.0-51.0); MEAN CORPUSCULAR HEMOGLOBIN 26.6 pg (29.0-33.0); MEAN CORPUSCULAR VOLUME 85.8 fl (82.0-101.0); MEAN PLATELET VOLUME 9.9 fl (7.4-10.4); MONOCYTE # 0.3 10^3/ul (0.3-0.9); NEUTROPHIL # 5.3 10^3/ul (1.6-7.5); NEUTROPHILS % 79.2 % (39.0-77.0); PLATELET COUNT 82 10^3/UL (140-415); POSITIVE DIFF @See below; RED BLOOD COUNT 2.89 10^6/ul (4.70-6.10); RED CELL DISTRIBUTION WIDTH 14.2 % (11.5-14.5)
[2019-02-02 06:13] LABS: WHITE BLOOD COUNT 6.7 10^3/ul (4.8-10.8)
[2019-02-02 06:32] LABS: ANION GAP 13 (5-13); BLOOD UREA NITROGEN 52 mg/dl (7-20); CALCIUM 8.8 mg/dl (8.4-10.2); CARBON DIOXIDE 25 mmol/L (21-31); CHLORIDE 103 mmol/L (97-110); Estimated GFR 13 mL/min (>60); GLUCOSE 83 mg/dl (70-220); POTASSIUM 4.8 mmol/L (3.5-5.1); SODIUM 141 mmol/L (135-144)
[2019-02-02] MEDS: PENTOXIFYLLINE (SR) 400 MG TAB PO ×3 (07:35→18:39)
[2019-02-02] MEDS: LISINOPRIL 20 MG TAB PO (09:00)
[2019-02-02] MEDS: AMOXICILLIN/CLAV 500 MG TAB PO (09:00)
[2019-02-02] MEDS: COLLAGENASE 5 GM (UD JAR) TOP (09:00)
[2019-02-02] MEDS: MINOXIDIL 10 MG TAB PO (09:00)
[2019-02-02] MEDS: INSULIN ASPART [NOVOLOG] 3 ML PEN SC (21:00)
[2019-02-03] MEDS: ACCU-CHEK XX (02:00)
[2019-02-03] MEDS: EPOETIN ALFA-EPBX (ESRD) 3,000 UNIT/ML VIAL SC (02:56)
[2019-02-03] MEDS: MINOXIDIL 10 MG TAB PO ×3 (03:02→20:51)
[2019-02-03] MEDS: PANTOPRAZOLE (EC) 40 MG TAB PO (05:48)
[2019-02-03] MEDS: morphine 2 MG INJ IV ×2 (07:24→15:35)
[2019-02-03] MEDS: COLLAGENASE 5 GM (UD JAR) TOP (07:50)
[2019-02-03] MEDS: INSULIN ASPART [NOVOLOG] 3 ML PEN SC ×4 (08:00→20:54)
[2019-02-03] MEDS: PENTOXIFYLLINE (SR) 400 MG TAB PO ×3 (08:47→17:41)
[2019-02-03] MEDS: LISINOPRIL 20 MG TAB PO (08:47)
[2019-02-03] MEDS: AMOXICILLIN/CLAV 500 MG TAB PO (08:47)
[2019-02-04] MEDS: ACCU-CHEK XX (01:53)
[2019-02-04] MEDS: morphine 2 MG INJ IV ×4 (04:02→20:46)
[2019-02-04] MEDS: PANTOPRAZOLE (EC) 40 MG TAB PO (05:11)
[2019-02-04 05:36] LABS: ADD MAN DIFF? NO
[2019-02-04 05:48] LABS: BASOPHILS % 0.2 % (0.0-2.0); EOSINOPHILS # 0.2 10^3/ul (0.0-0.5); EOSINOPHILS % 2.1 % (0.0-7.0); HEMATOCRIT 22.9 % (42.0-52.0); HEMOGLOBIN 7.2 g/dl (14.0-18.0); LYMPHOCYTES # 0.9 10^3/ul (0.8-2.9); LYMPHOCYTES % 9.2 % (15.0-51.0); MEAN CORPUSCULAR HEMOGLOBIN 26.9 pg (29.0-33.0); MEAN CORPUSCULAR HGB CONC 31.4 g/dl (32.0-37.0); MEAN CORPUSCULAR VOLUME 85.4 fl (82.0-101.0); MEAN PLATELET VOLUME 10.8 fl (7.4-10.4); MONOCYTE # 0.9 10^3/ul (0.3-0.9); NEUTROPHIL # 7.7 10^3/ul (1.6-7.5); PLATELET COUNT 103 10^3/UL (140-415); RED BLOOD COUNT 2.68 10^6/ul (4.70-6.10); RED CELL DISTRIBUTION WIDTH 14.6 % (11.5-14.5)
[2019-02-04 05:48] LABS: WHITE BLOOD COUNT 9.7 10^3/ul (4.8-10.8)
[2019-02-04 05:59] LABS: ANION GAP 13 (5-13); BLOOD UREA NITROGEN 52 mg/dl (7-20); CARBON DIOXIDE 23 mmol/L (21-31); CHLORIDE 102 mmol/L (97-110); CREATININE 5.81 mg/dl (0.61-1.24); Estimated GFR 13 mL/min (>60); GLUCOSE 74 mg/dl (70-220); POTASSIUM 5.4 mmol/L (3.5-5.1); SODIUM 138 mmol/L (135-144)
[2019-02-04] MEDS: INSULIN ASPART [NOVOLOG] 3 ML PEN SC ×4 (08:00→20:41)
[2019-02-04] MEDS: AMOXICILLIN/CLAV 500 MG TAB PO (08:28)
[2019-02-04] MEDS: PENTOXIFYLLINE (SR) 400 MG TAB PO ×3 (08:28→17:15)
[2019-02-04] MEDS: SODIUM POLYSTYRENE 15 GM KIT (POWDER + SORBITOL) PO (08:28)
[2019-02-04] MEDS: COLLAGENASE 5 GM (UD JAR) TOP ×2 (08:29→22:53)
[2019-02-04] MEDS: MINOXIDIL 10 MG TAB PO ×2 (08:29→20:42)
[2019-02-04] MEDS: LISINOPRIL 20 MG TAB PO (08:30)
[2019-02-04] MEDS: LEVOFLOXACIN 250 MG TAB PO (12:05)
[2019-02-04] MEDS: metroNIDAZOLE 500 MG TAB PO (21:55)
[2019-02-05] MEDS: ACCU-CHEK XX (01:40)
[2019-02-05] MEDS: metroNIDAZOLE 500 MG TAB PO ×3 (05:20→21:47)
[2019-02-05] MEDS: PANTOPRAZOLE (EC) 40 MG TAB PO (05:20)
[2019-02-05] MEDS: PENTOXIFYLLINE (SR) 400 MG TAB PO ×3 (07:35→17:35)
[2019-02-05] MEDS: INSULIN ASPART [NOVOLOG] 3 ML PEN SC ×4 (08:00→21:00)
[2019-02-05] MEDS: MINOXIDIL 10 MG TAB PO ×2 (09:00→21:00)
[2019-02-05] MEDS: LISINOPRIL 20 MG TAB PO (09:00)
[2019-02-05] MEDS: morphine 2 MG INJ IV (14:01)
[2019-02-05] MEDS: DEXTROSE 5%-0.45% NACL 500 ML IV (15:00)
[2019-02-05 15:57] LABS: IMMEDIATE SPIN CROSSMATCH 1 1
[2019-02-05] MEDS: EPOETIN ALFA-EPBX (ESRD) 3,000 UNIT/ML VIAL SC (17:00)
[2019-02-06] MEDS: morphine 2 MG INJ IV ×4 (00:15→21:08)
[2019-02-06] MEDS: ACCU-CHEK XX (02:00)
[2019-02-06] MEDS: DEXTROSE 5%-0.45% NACL 500 ML IV (03:26)
[2019-02-06] MEDS: PANTOPRAZOLE (EC) 40 MG TAB PO (05:11)
[2019-02-06] MEDS: metroNIDAZOLE 500 MG TAB PO ×3 (05:11→23:00)
[2019-02-06] MEDS: INSULIN ASPART [NOVOLOG] 3 ML PEN SC ×4 (08:00→21:00)
[2019-02-06] MEDS: PENTOXIFYLLINE (SR) 400 MG TAB PO ×3 (08:51→18:33)
[2019-02-06] MEDS: VANCOMYCIN 1 GM 250 ML IVPB (08:51)
[2019-02-06] MEDS: MINOXIDIL 10 MG TAB PO ×2 (09:00→21:09)
[2019-02-06] MEDS: LISINOPRIL 20 MG TAB PO (09:00)
[2019-02-06 10:30] LABS: ADD MAN DIFF? NO
[2019-02-06 10:45] LABS: WHITE BLOOD COUNT 10.5 10^3/ul (4.8-10.8)
[2019-02-06 10:45] LABS: BASOPHILS % 0.3 % (0.0-2.0); EOSINOPHILS # 0.3 10^3/ul (0.0-0.5); EOSINOPHILS % 2.7 % (0.0-7.0); HEMATOCRIT 25.4 % (42.0-52.0); LYMPHOCYTES # 0.8 10^3/ul (0.8-2.9); LYMPHOCYTES % 7.2 % (15.0-51.0); MEAN CORPUSCULAR HEMOGLOBIN 26.4 pg (29.0-33.0); MEAN CORPUSCULAR HGB CONC 31.5 g/dl (32.0-37.0); MEAN CORPUSCULAR VOLUME 83.8 fl (82.0-101.0); MEAN PLATELET VOLUME 11.1 fl (7.4-10.4); MONOCYTE # 0.7 10^3/ul (0.3-0.9); MONOCYTES % 6.6 % (0.0-11.0); NEUTROPHIL # 8.7 10^3/ul (1.6-7.5); NEUTROPHILS % 82.7 % (39.0-77.0); POSITIVE DIFF @See below; RED BLOOD COUNT 3.03 10^6/ul (4.70-6.10); RED CELL DISTRIBUTION WIDTH 14.9 % (11.5-14.5)
[2019-02-06 10:49] LABS: PLATELET COUNT 133 10^3/UL (140-415)
[2019-02-06 10:54] LABS: ANION GAP 13 (5-13); BLOOD UREA NITROGEN 46 mg/dl (7-20); CARBON DIOXIDE 27 mmol/L (21-31); CHLORIDE 100 mmol/L (97-110); CREATININE 5.95 mg/dl (0.61-1.24); Estimated GFR 12 mL/min (>60); GLUCOSE 126 mg/dl (70-220); POTASSIUM 4.3 mmol/L (3.5-5.1); SODIUM 140 mmol/L (135-144)
[2019-02-06 11:25] LABS: PHOSPHORUS 6.9 mg/dl (2.5-4.9)
[2019-02-06] MEDS: LEVOFLOXACIN 250 MG TAB PO (12:55)
[2019-02-06] MEDS: COLLAGENASE 5 GM (UD JAR) TOP (20:53)
[2019-02-06] MEDS: ZOLPIDEM 5 MG TAB PO (21:08)
[2019-02-07] MEDS: ACCU-CHEK XX (02:00)
[2019-02-07] MEDS: morphine 2 MG INJ IV ×4 (04:27→23:15)
[2019-02-07] MEDS: PANTOPRAZOLE (EC) 40 MG TAB PO (06:16)
[2019-02-07] MEDS: metroNIDAZOLE 500 MG TAB PO ×3 (06:16→23:15)
[2019-02-07] MEDS: INSULIN ASPART [NOVOLOG] 3 ML PEN SC ×4 (08:00→21:00)
[2019-02-07] MEDS: COLLAGENASE 5 GM (UD JAR) TOP (10:18)
[2019-02-07] MEDS: LISINOPRIL 20 MG TAB PO (10:18)
[2019-02-07] MEDS: PENTOXIFYLLINE (SR) 400 MG TAB PO ×3 (10:18→17:54)
[2019-02-07] MEDS: MINOXIDIL 10 MG TAB PO ×2 (10:18→21:00)
[2019-02-07] MEDS: MULTIVIT/CA CARB/B CMPLX/FA TAB PO (14:29)
[2019-02-07] MEDS: ZINC SULFATE 220 MG CAP PO (14:29)
[2019-02-07] MEDS ORDERED: ZINC SULFATE 220 MG CAP PO (17:00)
[2019-02-07] MEDS ORDERED: MULTIVIT/CA CARB/B CMPLX/FA TAB PO (17:00)
[2019-02-07] MEDS: EPOETIN ALFA-EPBX (ESRD) 3,000 UNIT/ML VIAL SC (17:56)
[2019-02-07] MEDS: LIDOCAINE 1% (MDV) 20 ML INJ INJ (19:42)
[2019-02-08] MEDS: ACCU-CHEK XX (01:03)
[2019-02-08] MEDS: PANTOPRAZOLE (EC) 40 MG TAB PO (06:00)
[2019-02-08] MEDS: metroNIDAZOLE 500 MG TAB PO (06:00)
[2019-02-08] MEDS: INSULIN ASPART [NOVOLOG] 3 ML PEN SC ×2 (08:00→12:00)
[2019-02-08] MEDS: MINOXIDIL 10 MG TAB PO (08:33)
[2019-02-08] MEDS: MULTIVIT/CA CARB/B CMPLX/FA TAB PO (08:33)
[2019-02-08] MEDS: PENTOXIFYLLINE (SR) 400 MG TAB PO ×2 (08:33→12:17)
[2019-02-08] MEDS: ZINC SULFATE 220 MG CAP PO (08:33)
[2019-02-08] MEDS: LISINOPRIL 20 MG TAB PO (08:34)
[2019-02-08] MEDS: morphine 2 MG INJ IV (08:34)
[2019-02-08] MEDS: COLLAGENASE 5 GM (UD JAR) TOP (08:41)
[2019-02-08] MEDS: LEVOFLOXACIN 250 MG TAB PO (12:17)
== END 2019-02-08 12:27 | disposition home health service (06) | DRG 617 ==
LOC: PP2 00:02
PROVIDERS: Internal Medicine Nephrology
PROC: 0Y6M0Z9 Detachment at Right Foot, Partial 1st Ray, Open Approach (ICD-10-PCS; principal; 2019-01-25 15:22)
PROC: 0Y6M0ZB Detachment at Right Foot, Partial 2nd Ray, Open Approach (ICD-10-PCS; 2019-01-25 15:22)
PROC: 0Y6M0ZC Detachment at Right Foot, Partial 3rd Ray, Open Approach (ICD-10-PCS; 2019-01-25 15:22)
PROC: 0Y6M0ZD Detachment at Right Foot, Partial 4th Ray, Open Approach (ICD-10-PCS; 2019-01-25 15:22)
PROC: 0Y6M0ZF Detachment at Right Foot, Partial 5th Ray, Open Approach (ICD-10-PCS; 2019-01-25 15:22)
PROC: 0JBQ0ZZ Excision of Right Foot Subcutaneous Tissue and Fascia, Open Approach (ICD-10-PCS; 2019-01-25 15:22)
PROC: 30233N1 Transfusion of Nonautologous Red Blood Cells into Peripheral Vein, Percutaneous Approach (ICD-10-PCS; 2019-01-25 15:22)
PROC: 02HV33Z Insertion of Infusion Device into Superior Vena Cava, Percutaneous Approach (ICD-10-PCS; 2019-01-25 15:22)
PROC: 05JY3ZZ Inspection of Upper Vein, Percutaneous Approach (ICD-10-PCS; 2019-01-25 15:22)
PROC: 5A1D70Z Performance of Urinary Filtration, Intermittent, Less than 6 Hours Per Day (ICD-10-PCS; 2019-01-25 15:22)
DX: E11.621 Type 2 diabetes mellitus with foot ulcer (principal); E11.52 Type 2 diabetes mellitus with diabetic peripheral angiopathy with gangrene; I96 Gangrene, not elsewhere classified; I50.30 Unspecified diastolic (congestive) heart failure; K81.0 Acute cholecystitis; M86.9 Osteomyelitis, unspecified; I13.2 Hypertensive heart and chronic kidney disease with heart failure and with stage 5 chronic kidney disease, or end stage renal disease; N18.6 End stage renal disease; B95.2 Enterococcus as the cause of diseases classified elsewhere; B95.4 Other streptococcus as the cause of diseases classified elsewhere; B96.6 Bacteroides fragilis [B. fragilis] as the cause of diseases classified elsewhere; D63.8 Anemia in other chronic diseases classified elsewhere; E11.22 Type 2 diabetes mellitus with diabetic chronic kidney disease; E11.69 Type 2 diabetes mellitus with other specified complication; E11.42 Type 2 diabetes mellitus with diabetic polyneuropathy; E78.5 Hyperlipidemia, unspecified; F32.9 Major depressive disorder, single episode, unspecified; I25.10 Atherosclerotic heart disease of native coronary artery without angina pectoris; K81.1 Chronic cholecystitis; L97.514 Non-pressure chronic ulcer of other part of right foot with necrosis of bone; L85.9 Epidermal thickening, unspecified; R21 Rash and other nonspecific skin eruption; R07.81 Pleurodynia; R11.10 Vomiting, unspecified; Z91.81 History of falling; Z95.5 Presence of coronary angioplasty implant and graft; Z98.62 Peripheral vascular angioplasty status; Z99.2 Dependence on renal dialysis; Z89.512 Acquired absence of left leg below knee; Z89.421 Acquired absence of other right toe(s); Z79.02 Long term (current) use of antithrombotics/antiplatelets
CPT/HCPCS: 36430; 71045; 71100; 73630; 76705; 80048; 80053; 80202; 82962; 83735; 84100; 85018; 85025; 85610; 85730; 86706; 86850; 86900; 86901; 86920; 87070; 87075; 87102; 87340; 88305; 88311; 90935